=== PATIENT | female | born 1960 | race Caucasian/White ===

== ENCOUNTER → 2017-12-27 07:16 | Outpatient (CLI) | payer OTHER, SELFPAY ==
--- NOTE | 2017-12-27 07:28 | BI_ITS ---
MAMMOGRAPHY - BILATERAL SCREENING REASON FOR EXAM: Female, 57 years old. Routine annual screening examination. PERTINENT HISTORY: Non-contributory. TECHNIQUE: Digital bilateral breast ruby (3D mammographic acquisition) in the CC and MLO projections. 2-D mediolateral oblique (MLO) and craniocaudad (CC) views of both breasts were obtained. CAD: Full Field Digital Mammography with Computer Added Detection was performed. COMPARISON: Comparison is made to prior study dated March 13, 2016 and March 02, 2015. FINDINGS: Breast Composition: There are scattered areas of fibroglandular density. There are no dominant masses or suspicious calcifications. No other significant abnormalities are identified. There has been no significant change since the prior study. BI/SCREENING MAMM (CAD), BILAT IMPRESSION: Stable bilateral screening mammogram. Yearly follow-up mammogram recommended. (A) ASSESSMENT CATEGORY: BIRADS Category 1: Negative. A letter regarding these results will be sent to the patient by the facility within 30 days. Approximately 10% of breast cancers are not detected by mammography. A normal mammogram should not delay biopsy of a clinically suspicious abnormality. [id number] Electronically Signed: Darvin North MD at 8:56 EDT Tel [phone], Service support ,
== END ==
PROVIDERS: Family Provider Family Medicine; PCP Family Medicine; Visit Provider Obstetrics & Gynecology
DX: Z12.31 Encounter for screening mammogram for malignant neoplasm of breast (principal)
CPT/HCPCS: 77063; 77067

== ENCOUNTER 2018-10-12 15:29 | Emergency (ER) | payer OTHER, SELFPAY ==
[2018-10-12 15:30] VITALS: BP 150/79; PULSE 86; RESP 18; TEMP 36.7; O2SAT 99; BMI 27.7
--- NOTE | 2018-10-12 15:42 | RAD_ITS ---
STUDY: X-RAY - LEFT HAND REASON FOR EXAM: Female, 58 years old. Cat bites TECHNIQUE: 3 view(s) of the hand. COMPARISON: None. FINDINGS: Normal radiocarpal articulation. Normal distal radioulnar joint. Normal visualized carpal bones. Normal carpal articulations Normal carpometacarpal articulation of the thumb. Normal second through fifth carpometacarpal joints. Normal metacarpi. Normal metacarpophalangeal joint of the thumb. Normal interphalangeal joint of the thumb. Normal proximal and distal phalanges of the thumb. Normal metacarpophalangeal joints of the second through fifth fingers. Normal proximal and distal interphalangeal joints of the second through fifth fingers. Normal phalanges of the second through fifth fingers. Soft tissue swelling and possible subcutaneous gas second metacarpal phalangeal region. RAD/Hand Min 3 Views IMPRESSION: Soft tissue swelling and possible subcutaneous gas consistent with possible infection. No radiodense foreign body. Electronically Signed: Jerardo Martinez MD at 16:15 EDT , Service support ,
--- NOTE | 2018-10-12 15:44 | ED.VISSUMM ---
- ER Visit Summary Date of Service: 10/12/18 Chief Complaint: Multiple cat bites History of Present Illness: The patient is a 58 F who rescued a stray kitten today. On the way home the cat box when the patient took the cat on the box it was covered in fecal material. She attempted to wash the cat but the cat was not willing. As a result she sustained multiple cat bite wounds to the left forearm and hand. She notes a couple of wounds to her right hand and her left upper arm. Unknown last tetanus. She performed some local wound care Physical Examination: Afebrile vital signs are stable Gen: Well-nourished well-developed Head: Normocephalic atraumatic Eyes: Perrl EOMI ENT: TMs clear no rhinorrhea moist mucous membranes Neck: Supple no lymphadenopathy no JVD nontender CVS: Regular rate rhythm no murmurs normal S1-S2 Respiratory: No distress clear to auscultation bilaterally chest nontender Abdomen: Soft nontender nondistended normal bowel sounds no masses Back: Nontender Extremity: There are multiple puncture wounds to the left hand and forearm. There are several wounds to the volar surface of the left index and middle finger. As well as several wounds to the dorsal surface of same fingers. There is a small wound to the posterior left upper arm as well as the left hand. Skin: Normal color no rash Neuro: alert orientated ?3 CN II-XII intact normal strength sensation reflexes gait cerebellar Psych: Normal affect normal mood Test Results: X-rays of the hand and forearm were obtained. No obvious foreign bodies were seen. Emergency Department Course and Treatment: Tetanus was updated. Wounds were washed cleansed and dressed. She will need to take antibiotics I will prescribe Augmentin. The patient was advised that she is at extremely high risk for infection and other complications because of the right hand and her diabetic status. I advised her she to have a low threshold for return for evaluation. Impression: 1. Multiple cat bites left arm and hand 2. Tetanus update This note was generated with [employer] dictation software. It may contain incorrect words, spelling, and punctuation that were not noted in review of the chart prior to signing ED Disposition - Plan for ED Patient: Disposition: Home or Assisted Living Instructions: ED Bite Cat Prescriptions: Amox/Clavulanate Tablet [Augmentin Tablet] 875 mg PO Q12H #14 tab Additional Instructions: Please follow-up with your primary care physician within 5 days. Please return to the emergency department immediately if you have any concerns or evidence of infection (erythema, red streaks, fever, pus, etc.).
--- NOTE | 2018-10-12 15:45 | RAD_ITS ---
STUDY: X-RAY - LEFT RADIUS AND ULNA REASON FOR EXAM: Female, 58 years old. Multiple cat bite TECHNIQUE: 2 view(s) of the forearm. COMPARISON: None. FINDINGS: There is no demonstrated soft tissue swelling. No subcutaneous gas or radiodense foreign body. Normal visualized radius. Normal visualized ulna. RAD/Forearm 2 Views IMPRESSION: Normal x-ray examination of the radius and ulna. Electronically Signed: Jerardo Martinez MD at 16:14 EDT , Service support ,
[2018-10-12] MEDS: Diphth,Pertuss(Acell),Tet Vac 0.5 ML Vial IM (15:51)
[2018-10-12] MEDS: Amox/Clavulanate 875 MG Tablet PO (15:51)
== END 2018-10-12 16:32 | disposition home or self-care (01) ==
PROVIDERS: Emergency Provider Emergency Medicine
DX: S60.572A Other superficial bite of hand of left hand, initial encounter (principal); S50.872A Other superficial bite of left forearm, initial encounter; W55.01XA Bitten by cat, initial encounter; Y93.9 Activity, unspecified; Y92.9 Unspecified place or not applicable; Z23 Encounter for immunization; E11.9 Type 2 diabetes mellitus without complications
CPT/HCPCS: 73090; 73130; 90715; 99283

== ENCOUNTER → 2019-03-13 08:12 | Outpatient (CLI) | payer OTHER, SELFPAY ==
--- NOTE | 2019-03-13 08:14 | BI_ITS ---
MAMMOGRAPHY - BILATERAL SCREENING REASON FOR EXAM: Female, 58 years old. Routine annual screening examination. PERTINENT HISTORY: Non-contributory. TECHNIQUE: Digital bilateral breast ruby (3D mammographic acquisition) in the CC and MLO projections. 2-D mediolateral oblique (MLO) and craniocaudad (CC) views of both breasts were obtained. CAD: Full Field Digital Mammography with Computer Added Detection was performed. COMPARISON: Comparison is made with prior examination dated December 27, 2017 and March 13, 2016. FINDINGS: Breast Composition: There are scattered areas of fibroglandular density. There are no dominant masses or suspicious calcifications. No other significant abnormalities are identified. There has been no significant change since the prior study. BI/SCREENING MAMM (CAD), BILAT IMPRESSION: Stable bilateral screening mammogram. Yearly follow-up mammogram recommended. (A) ASSESSMENT CATEGORY: BIRADS Category 1: Negative. A letter regarding these results will be sent to the patient by the facility within 30 days. Approximately 10% of breast cancers are not detected by mammography. A normal mammogram should not delay biopsy of a clinically suspicious abnormality. [id number] Electronically Signed: Darvin North, at 9:25 EDT , Service support ,
== END ==
PROVIDERS: Family Provider Family Medicine; PCP Family Medicine; Referring Provider Obstetrics & Gynecology; Visit Provider Obstetrics & Gynecology
DX: Z12.31 Encounter for screening mammogram for malignant neoplasm of breast (principal)
CPT/HCPCS: 77067

== ENCOUNTER 2019-07-23 16:58 | Emergency (ER) | payer OTHER, SELFPAY ==
[2019-07-23 16:59] VITALS: BP 143/78; PULSE 119; RESP 19; TEMP 37.9; O2SAT 94; BMI 27.4
[2019-07-23 18:00] VITALS: BP 146/71; PULSE 104; RESP 17; TEMP 38.4; O2SAT 88
[2019-07-23] MEDS: 0.9% Normal Saline 1,000 ML 1000 ML IV (18:07)
--- NOTE | 2019-07-23 18:10 | ED.DCSUM_ITS ---
- ER Visit Summary Date of Service: 07/23/19 Chief Complaint: Flulike symptoms History of Present Illness: The patient is a 59 F who presents with flulike symptoms that have been constant for the past 2 days. Patient states this is gradually gotten worse. Patient states nothing makes it better or worse. Patient admits to a fever of 103 at home. Patient also admits to some chills and rhinorrhea. Patient admits to cough and shortness of breath. Patient admits to some sputum production but she does not know the color. Patient admits to generalized myalgias and arthralgias. Patient also admits to a headache. Patient denies any nausea or vomiting. Patient denies any dysuria or hematuria. Physical Examination: Vital signs are stable except for tachycardia of 119. Patient has a temperature of 100.3 here. Patient is in no acute distress. Oral mucosa is pink and moist. Neck is supple. Trachea is midline. There is no JVD. Heart was regular rate and rhythm. Lungs are clear and equal bilaterally. Abdomen is soft. Bowel sounds are normal. There is no tenderness. Cranial nerves II through XII are intact. There are no focal motor or sensory deficits noted. Test Results: CBC was within normal limits. Basic metabolic profile showed slightly elevated creatinine of 1.20 and a slightly elevated glucose of 224. Influenza swab was positive for influenza A. Emergency Department Course and Treatment: Patient was given IV fluids. Patient felt better on reevaluation. Patient was given a prescription for Tamiflu. Patient was instructed to drink plenty of fluids. Patient was instructed to follow-up with her primary care physician in 5 to 7 days. Patient understood and was agreeable with the plan. All questions were answered. Disposition: Discharge home Impression: Influenza This note was generated with [employer] dictation software. It may contain incorrect words, spelling, and punctuation that were not noted in review of the chart prior to signing ED Disposition - Plan for ED Patient: Disposition: Home or Assisted Living Diagnosis: Influenza A Instructions: INFLUENZA (Adult) Prescriptions: Oseltamivir Phosphate [Tamiflu] 75 mg PO BID #10 cap Prescription Printed Referrals: Ezequiel Nelson MD [Primary Care Provider] - 5-7 Days
[2019-07-23 18:12] LABS: Absolute Neutrophil Count 5.4 X10^3/uL (2.0-7.7); Basophil# 0.04 X10^3/uL; Basophil% 0.6 % (0-1); Eosinophil# 0.15 X10^3/uL; Eosinophils% 2.3 % (0-5); Hematocrit 37.1 % (37-47); Hemoglobin 12.1 g/dL (12.0-15.0); Lymphocyte % 7.6 % (19-41); Mean Corp Hgb Conc 32.6 g/dL (32-36); Mean Platelet Vol. 11.6 fl (6.2-12.0); Monocyte# 0.44 X10^3/uL; Monocyte% 6.7 % (0-10); NRBC Flagged by Analyzer 0 % (0-5); Neutrophil # 5.42 X10^3/uL (2.7-7.7); Neutrophil % 82.3 % (47-70); POSITIVE DIFFERENTIAL YES; POSITIVE MORPHOLOGY YES; Platelet Count 217 K/mm3 (150-450); RBC Distribution Width CV 12.5 % (11.6-14.6); RBC Distribution Width SD 41.4 fl (35.1-43.9); Red Blood Count 4.17 M/mm3 (4.2-5.4); White Blood Count 6.6 K/mm3 (4.4-11.0)
[2019-07-23 18:15] LABS: Differential Indicated SCAN CRITERIA MET
--- NOTE | 2019-07-23 18:15 | RAD_ITS ---
STUDY: X-RAY CHEST REASON FOR EXAM: Female, 59 years old. flu symptoms TECHNIQUE: PA and lateral views of the chest. COMPARISON: None. FINDINGS: The lungs are clear and expanded. There is no demonstrated pleural abnormality. Normal size heart. Normal mediastinum and juan. Normal visualized pulmonary arteries. Normal visualized aortic arch and descending thoracic aorta. Normal visualized thoracic spine. Normal visualized ribs, clavicles, and shoulders. There is no demonstrated abnormality of the visualized soft tissue structures of the upper abdomen. RAD/Chest PA and Lateral IMPRESSION: Normal x-ray examination of the chest. Electronically Signed: Christiano Burris DO at 18:58 EST Tel , Service support ,
[2019-07-23 18:47] LABS: Differential Comment SCANNED; Platelet Estimate ADEQUATE (ADEQ)
[2019-07-23 18:48] LABS: Red Cell Morphology NORM C+C NORMAL (NORM C&C)
[2019-07-23 18:53] VITALS: BP 131/70; PULSE 99; RESP 21; TEMP 37.5; O2SAT 97
[2019-07-23 19:09] LABS: ALB/GLOB Ratio 0.8 RATIO (0.9-2.4); AST(SGOT) 14 U/L (15-37); Alanine Aminotransfer ALT/SGPT 25 U/L (13-56); Alkaline Phosphatase 92 U/L (45-117); Anion Gap 6 (5-15); BUN 10 mg/dL (7-18); BUN/Creat Ratio 8.3 RATIO (10-20); Calcium,Total 8.2 mg/dL (8.5-10.1); Chloride 106 mmol/L (98-107); EST Glomerular Filtration Rate 49 mL/min (>60); Est Glom Filt Rate - Afr Amer 59 mL/min (>60); Estimated Creatinine Clearance 42.27 ml/min; Globulin 3.6 g/dL (2.2-4.2); Glucose 224 mg/dL (74-106); Protein, Total 6.6 g/dL (6.4-8.2); Sodium Level 138 mmol/L (136-145)
[2019-07-23 20:09] VITALS: BP 128/66; PULSE 98; RESP 17
== END 2019-07-23 20:09 | disposition home or self-care (01) ==
PROVIDERS: Emergency Provider Emergency Medicine; PCP Family Medicine
DX: J10.1 Influenza due to other identified influenza virus with other respiratory manifestations (principal); E11.9 Type 2 diabetes mellitus without complications; R00.0 Tachycardia, unspecified; J45.909 Unspecified asthma, uncomplicated; Z79.899 Other long term (current) drug therapy
CPT/HCPCS: 71046; 80053; 85025; 87804; 87880; 96360; 99284; J7030; A4216

== ENCOUNTER 2019-10-03 19:49 | Inpatient (IN) | payer OTHER, SELFPAY ==
[2019-10-03 19:50] VITALS: BP 155/85; PULSE 96; RESP 17; TEMP 36.4; O2SAT 96; BMI 27.1
--- NOTE | 2019-10-03 20:04 | CT_ITS ---
STUDY: CT ABDOMEN AND PELVIS WITHOUT CONTRAST REASON FOR EXAM: Female, 59 years old. RIGHT FLANK PAIN, BURNING WITH URINATION. NAUSEA. RADIATION DOSAGE (If Supplied By Facility): CTDIvol = ( 17.493 ) mGy, DLP = ( 1338.69 ) mGycm TECHNIQUE: Transaxial images were obtained from the dome of the diaphragm to the symphysis pubis without oral contrast, and without intravenous contrast. Sagittal and coronal images were reconstructed. Individualized dose optimization techniques were used for this CT. COMPARISON: None. FINDINGS: There is mild subsegmental atelectasis in left lower lobe.. The visualized portions of the heart are within normal limits. Small hiatal hernia is noted Liver is enlarged and fatty infiltrated without mass or bile duct dilatation. Normal gallbladder and extrahepatic biliary system. Normal spleen. Normal pancreas. Normal bilateral adrenal glands. Normal right kidney. There is focal hypoattenuation within the lower pole of the left renal cortex in association with stranding in the perinephric fat and trace of fluid in the right posterior pararenal space and paracolic gutter which may be consistent with focal lobar nephronia and possible evolving renal abscess. Normal visualized stomach. Normal small intestine. Normal colon. The appendix is visualized and appears normal. Mild atherosclerotic changes of the aorta without evidence for aneurysm. Normal inferior vena cava. Normal retroperitoneum. Incompletely distended thick-walled prolapsed bladder which cannot be adequately evaluated Normal abdominal wall. Normal osseous structures. CT/Abdomen/Pelvis W IV Cont ONLY IMPRESSION: Findings consistent with focal lobar nephronia of the lower pole of the right kidney and possible evolving abscess. Incompletely distended thick-walled prolapsed bladder which cannot be adequately evaluated. Other findings as above Electronically Signed: Jose Marlow MD at 21:24 EDT , Service support ,
--- NOTE | 2019-10-03 20:05 | ED.VISSUMM ---
- ER Visit Summary Date of Service: 10/03/19 Chief Complaint: Right flank pain History of Present Illness: The patient is a 59 F history of diabetes and asthma. Patient states since Sunday she has had gradual onset of right flank pain. Thought she might of UTI. Has had some dysuria. Pain is gotten worse. She treated with azole and which is started on antibiotic today. Has had nausea. No fever positive chills. Says she had urinary tract infections before is never had right flank pain with comes. Has never had pyelonephritis. Has never had a kidney stone. No gallbladder history. No prior abdominal surgeries. Physical Examination: Middle-aged female clinically looks like she does not feel well vital signs are stable afebrile. She does not look septic or toxic. H EENT exam unremarkable. Neck nontender. Lungs clear to auscultation bilaterally. Heart regular rhythm no murmur rate about 95. Abdomen soft right upper quadrant tenderness. No rebound, guarding or rigidity. No Meneses sign. Right lower quadrant and left side of the abdomen are nontender. No distention. No obstruction. Patient moving all 4 extremities. No edema. Back no CVA tenderness. No back tenderness. Neurologically she is awake alert with no focal motor tenderness. Test Results: CBC white count 1.7. Hemoglobin 11.4 which is around her baseline blood count. Chemistries unremarkable BUN of 15 creatinine 1.4 slightly worsening renal insufficiency than prior 1.2. Gap 7. Liver enzymes unremarkable lipase normal. UA still pending with culture also ordered. Emergency Department Course and Treatment: Patient with right flank pain that may be pyelonephritis. She is never had a history of a stone. She does have right upper quadrant pain gallbladder disease in the differential diagnosis also. She was offered pain and nausea medication she deferred. She will be treated with a liter normal saline. CAT scan with IV contrast and screening labs. Along with urinalysis. CT flank study with IV contrast shows right pyelonephritis with possible even early abscess formation. All the test findings were discussed with the patient. Urine culture has been added. Treatment Plan: IV fluids. IV morphine and Zofran x2 each. Patient be started on IV Rocephin for pyelonephritis. I will speak to the hospitalist about admission. Disposition: Discharge Impression: Acute right flank pain secondary to acute pyelonephritis Rule out early renal abscess History of diabetes This note was generated with [employer] dictation software. It may contain incorrect words, spelling, and punctuation that were not noted in review of the chart prior to signing ED Disposition - Plan for ED Patient: Referrals: Ezequiel Nelson MD [Primary Care Provider] -
[2019-10-03] MEDS: 0.9% Normal Saline 1,000 ML 1000 ML IV (20:15)
[2019-10-03] MEDS: Ondansetron 4 MG/2 ML Vial IV ×2 (20:28→21:25)
[2019-10-03] MEDS: morphine 8 MG/ML Syringe 6 MG IV ×2 (20:28→21:25)
[2019-10-03 20:29] LABS: Absolute Lymphocyte Count 1.29 X10^3/uL (0.83-4.51); Absolute Neutrophil Count 9.9 X10^3/uL (2.0-7.7); Basophil# 0.05 X10^3/uL; Basophil% 0.4 % (0-1); Eosinophil# 0.04 X10^3/uL; Eosinophils% 0.3 % (0-5); Hematocrit 36.1 % (37-47); Hemoglobin 11.4 g/dL (12.0-15.0); Lymphocyte # 1.29 X10^3/ul (4.0); Lymphocyte % 10.9 % (19-41); Mean Corp Hgb Conc 31.6 g/dL (32-36); Mean Corpuscular Hgb 28.4 pg (27.0-32.0); Monocyte# 0.55 X10^3/uL; Monocyte% 4.6 % (0-10); NRBC Flagged by Analyzer 0 % (0-5); Neutrophil # 9.86 X10^3/uL (2.7-7.7); Neutrophil % 83.3 % (47-70); Platelet Count 193 K/mm3 (150-450); RBC Distribution Width CV 12.6 % (11.6-14.6); RBC Distribution Width SD 41.1 fl (35.1-43.9); Red Blood Count 4.01 M/mm3 (4.2-5.4); White Blood Count 11.9 K/mm3 (4.4-11.0)
[2019-10-03 20:45] LABS: ALB/GLOB Ratio 0.7 RATIO (0.9-2.4); AST(SGOT) 12 U/L (15-37); Alanine Aminotransfer ALT/SGPT 24 U/L (13-56); Albumin, Serum 3.2 g/dL (3.2-5.0); Alkaline Phosphatase 121 U/L (45-117); Anion Gap 7 (5-15); BUN 15 mg/dL (7-18); BUN/Creat Ratio 10.7 RATIO (10-20); Calcium,Total 9.3 mg/dL (8.5-10.1); Chloride 101 mmol/L (98-107); EST Glomerular Filtration Rate 41 mL/min (>60); Est Glom Filt Rate - Afr Amer 50 mL/min (>60); Estimated Creatinine Clearance 36.23 ml/min; Globulin 4.5 g/dL (2.2-4.2); Glucose 382 mg/dL (74-106); Lipase 80 U/L (73-393); Potassium 4.2 mmol/L (3.5-5.1); Protein, Total 7.7 g/dL (6.4-8.2); Sodium Level 135 mmol/L (136-145)
[2019-10-03 20:52] LABS: Mucous, Urine 0 SEEN /hpf (<or=2+)
[2019-10-03 21:25] VITALS: BP 155/84; PULSE 98; RESP 19; O2SAT 97
[2019-10-03 21:29] VITALS: BP 155/84; PULSE 98; RESP 19; TEMP 36.8; O2SAT 97
[2019-10-03 21:37] LABS: Glucose, Dipstick 250 mg/dl (Normal); Ketone-Dipstick 5 mg/dl (Negative); Leukocyte Esterase-Dipstick Negative /ul (Negative); Nitrite-Dipstick Positive (Negative); Occult Blood-Urine 25 /ul (Negative); Protein-Dipstick 30 mg/dl (Negative); Specific Gravity, Urine 1.015 (1.002-1.030); Urine Clarity Sl. Cloudy (Clear); Urine Urobilinogen 8 mg/dl (Normal)
[2019-10-03] MEDS: Ceftriaxone 1 GM/50 ML BAG IV (21:39)
[2019-10-03 21:41] LABS: Color, Urine SEE COMMENT BELOW (Yellow); Urine Bilirubin Dipstick 6 mg/dL (Negative)
[2019-10-03 21:47] LABS: Red Blood Cells-Urine 10-25 SEEN /hpf (0-5); Squamous Epithelial Cells - UA 0-5 SEEN /hpf (5-10); White Blood Cells 10-25 SEEN /hpf (0-5)
[2019-10-03 21:48] LABS: Amorphous Sediment 1+ URATE; Bacteria RARE /hpf (None Seen)
[2019-10-03 22:01] VITALS: BP 164/93; PULSE 88; RESP 18; TEMP 36.8; O2SAT 95
[2019-10-03 22:35] VITALS: BP 158/83; PULSE 85; RESP 16; TEMP 36.5; O2SAT 95
--- NOTE | 2019-10-03 22:35 | PCM.HP.STD ---
History of Present Illness Date of Admission: 10/03/19 Chief Complaint: Right flank pain The patient is a 59 year old F H as below presents with right-sided flank pain as well as dysuria. She says that symptoms started about 3 days ago but significantly got worse today. She called her PCP today and was started on antibiotic she believes it was Macrobid, however she said the pain became so severe that she had to come to the hospital. CT scan of her abdomen showed pyelonephritis with possible early onset abscess in the lower pole of her right kidney. UA is positive nitrites with rare bacteria, no leukocyte esterase. She was given a dose of Rocephin here in the ER. She has had some nausea and vomiting with the pain over the last day. White count is 11.9 and her creatinine is slightly elevated from her baseline of 1.2. Past Medical History Allergies meperidine [From Demerol] Adverse Reaction (Verified 10/03/19 19:50) Vomiting Home Medications: Ambulatory Orders Medication Instructions Recorded Fluticasone/Salmeterol [Advair Hfa 1 - 2 puff IH DAILY 07/23/19 230-21 Mcg Inhaler] Simvastatin 20 mg PO QHS 07/23/19 Glipizide [Glipizide ER] 2.5 mg PO DAILY 10/03/19 Insulin Degludec [Tresiba 80 units SQ QHS 10/03/19 Flextouch U-200] Metformin HCl [Metformin HCl ER] 1,000 mg PO DAILY 10/03/19 Surgical History: - - Smoking Status: Never smoker Alcohol: None Drugs: None - *Family History Maternal History Items: Diabetes Paternal History Items: Diabetes Review of Systems Constitutional: Denies: Chills, Fever, Weight Change HEENT: Denies: Head Aches, Sinus Congestion, Sinus Drainage Cardiovascular: Denies: Chest Pain, Palpitations Respiratory: Denies: Cough, Shortness of breath at rest, Sputum production Gastrointestinal: Reports: Nausea, Vomiting. Denies: Abdominal Pain Genitourinary: Reports: Dysuria, - - Right flank pain Musculoskeletal: Denies: Joint Pain, Joint Tenderness Skin: Denies: Rash, Wounds Neurological: Denies: Numbness, Tingling, Focal weakness Psychiatric: Denies: Anxiety, Depression Hematologic/ Lymphatic: Denies: Easy Bruising, Easy Bleeding VTE Information - Inpt Only VTE Present on Admission: No - Physical Exam Vitals/I&O's: Vital Signs Temp Pulse Resp BP Pulse Ox 98.3 F 88 18 164/93 H 95 10/03/19 22:01 10/03/19 22:01 10/03/19 22:01 10/03/19 22:01 10/03/19 22:01 Oxygen Delivery Method Room Air Weight: 153 lb 3.54 oz Body Mass Index (BMI) 27.1 Intake and Output for Last 24 Hours 10/01/19 10/02/19 10/03/19 23:59 23:59 23:59 Intake Total 1000 / 1000 Balance 1000 / 1000 General: Alert, Oriented x3, Cooperative, No apparent distress HEENT: Atraumatic, PERRLA, EOMI, Normocephalic Oral: Moist Mucosa Neck: Supple, No JVD Lungs: Clear to auscultation, Normal air movement, No rhonchi, No wheeze, No rales Cardiovascular: Regular rate, Regular Rhythm, Normal S1, Normal S2, No murmurs, No Ectopic Activity Abdomen: Soft, Non Tender, Non-Distended, No Hepato-splenomegaly, - - Right CVA tenderness Extremities: No edema, Capillary Refill Less than 3 Seconds Skin: No rashes, No breakdown Neurological: Neuro grossly intact, Sensory exam intact to light touch and pain Psych/Mental Status: Normal Affect, Appropriate Laboratory Results 10/03/19 20:07: WBC 11.9 H, RBC 4.01 L, Hgb 11.4 L, Hct 36.1 L, MCV 90.0, MCH 28.4, MCHC 31.6 L, RDW Std Deviation 41.1, RDW Coeff of Pardeep 12.6, Plt Count 193, MPV 11.0, Immature Gran % (Auto) 0.500, Neut % (Auto) 83.3 H, Lymph % (Auto) 10.9 L, [place] % (Auto) 4.6, Eos % (Auto) 0.3, Baso % (Auto) 0.4, Absolute Neuts (auto) 9.9 H, Absolute Lymphs (auto) 1.29, Nucleated RBC % 0 10/03/19 20:07: Sodium 135 L, Potassium 4.2, Chloride 101, Carbon Dioxide 27.0, Anion Gap 7, BUN 15, Creatinine 1.40 H, Estim Creat Clear Calc 36.23, Est GFR (MDRD) Af Amer 50 L, Est GFR (MDRD) Non-Af 41 L, BUN/Creatinine Ratio 10.7, Glucose 382 H, Calcium 9.3, Total Bilirubin 0.50, AST 12 L, ALT 24, Alkaline Phosphatase 121 H, Total Protein 7.7, Albumin 3.2, Globulin 4.5 H, Albumin/Globulin Ratio 0.7 L, Lipase 80 10/03/19 20:45: Urine Color SEE COMMENT BELOW, Urine Clarity Sl. Cloudy, Urine pH 5.0, Ur Specific [place] 1.015, Urine Protein 30 H, Urine Glucose (UA) 250 H, Urine Ketones 5 H, Urine Occult Blood 25 H, Urine Nitrite Positive H, Urine Bilirubin 6 H, Urine Urobilinogen 8 H, Ur Leukocyte Esterase Negative, Urine RBC 10-25 SEEN, Urine WBC 10-25 SEEN, Ur Squamous Epith Cells 0-5 SEEN, Amorphous Sediment 1+ URATE, Urine Bacteria RARE, Urine Mucus 0 SEEN Current Medications Acetaminophen (Tylenol) 650 mg PO Q6H PRN PRN PRN Reason: Pain Score 1-10/Temp > 100.7 F Dextrose (D50w Syringe) 0 gm IV X1 PRN; Protocol PRN Reason: Hypoglycemia Glucagon () 1 mg IM .X1 PRN PRN Reason: Hypoglycemia Heparin Sodium (Porcine) (Heparin Na) 5,000 unit SC Q8 [facility] Sodium Chloride () 1,000 mls @ 75 mls/hr IV .[id number] [facility] Cefazolin Sodium 2 gm/ Sodium (Chloride) 110 mls @ 150 mls/hr IV Q8 [facility] Insulin Glargine (Lantus (Bkc)) 80 units SC QHS [facility] Insulin Human Lispro (Humalog Kwikpen (Bkc)) 0 unit SC ACHS [facility]; Protocol Insulin Human Lispro (Humalog Kwikpen (Bkc)) 5 unit SC TIDAC [facility] Melatonin (Melatonin) 3 mg PO QHS PRN PRN PRN Reason: INSOMNIA Ondansetron HCl (Zofran) 4 mg IV Q8H PRN PRN PRN Reason: NAUSEA/VOMITING Assessment/Plan 1. Right pyelonephritis with possible early abscess -Continue with Ancef -Urine culture is pending -Continue with IV Zofran and Toradol for pain management 2. DM 2 -We will continue with Lantus as well as sliding scale insulin -Hold glipizide and metformin 3. Hyperlipidemia -Continue with her simvastatin DVT: Heparin Inpatient E&M: 19132 Init Hosp L2
[2019-10-03] MEDS: 0.9% Normal Saline 1,000 ML 75 ML IV (22:45)
[2019-10-03] MEDS: Ketorolac 30 MG/ML Syringe IV (22:45)
[2019-10-03 22:54] VITALS: BMI 27.3
[2019-10-03 22:56] LABS: Bedside Glucose 260 mg/dL (70-110)
[2019-10-03] MEDS: 0.9% Saline Lock 10 ML Syringe IV (23:10)
[2019-10-03 23:12] VITALS: BMI 27.3
[2019-10-03] MEDS: Cefazolin 2 GM in 0.9% Normal Saline 100 ML IV (23:17)
[2019-10-03] MEDS: proMETHazine 25 MG/ML Syringe 12.5 MG IV (23:28)
[2019-10-03] MEDS: Heparin Injection (Vial) 5,000 UNIT/ML VIAL 5000 UNIT SC (23:30)
[2019-10-03] MEDS: Insulin Lispro 100 UNIT/ML INSULN.PEN SC (23:34)
[2019-10-04 02:37] VITALS: BP 154/87; PULSE 78; RESP 17; TEMP 37; O2SAT 95
[2019-10-04] MEDS: Cefazolin 2 GM in 0.9% Normal Saline 100 ML IV ×3 (06:08→21:24)
[2019-10-04] MEDS: Heparin Injection (Vial) 5,000 UNIT/ML VIAL 5000 UNIT SC (06:13)
[2019-10-04] MEDS: Insulin Lispro 100 UNIT/ML INSULN.PEN SC ×4 (06:17→21:23)
[2019-10-04 07:06] LABS: Absolute Lymphocyte Count 1.32 X10^3/uL (0.83-4.51); Absolute Neutrophil Count 10.7 X10^3/uL (2.0-7.7); Basophil# 0.02 X10^3/uL; Basophil% 0.2 % (0-1); Eosinophil# 0.02 X10^3/uL; Eosinophils% 0.2 % (0-5); Hematocrit 35.8 % (37-47); Hemoglobin 11.2 g/dL (12.0-15.0); Lymphocyte # 1.32 X10^3/ul (4.0); Lymphocyte % 10.6 % (19-41); Mean Corp Hgb Conc 31.3 g/dL (32-36); Mean Corpuscular Hgb 28.6 pg (27.0-32.0); Mean Corpuscular Volume 91.6 fL (81-99); Monocyte# 0.33 X10^3/uL; Monocyte% 2.6 % (0-10); NRBC Flagged by Analyzer 0 % (0-5); Neutrophil # 10.73 X10^3/uL (2.7-7.7); Neutrophil % 85.8 % (47-70); Platelet Count 184 K/mm3 (150-450); RBC Distribution Width CV 12.9 % (11.6-14.6); RBC Distribution Width SD 42.5 fl (35.1-43.9); Red Blood Count 3.91 M/mm3 (4.2-5.4); White Blood Count 12.5 K/mm3 (4.4-11.0)
[2019-10-04 07:11] LABS: Bedside Glucose 169 mg/dL (70-110)
[2019-10-04 07:35] LABS: Anion Gap 7 (5-15); BUN 13 mg/dL (7-18); BUN/Creat Ratio 10.6 RATIO (10-20); Calcium,Total 8.5 mg/dL (8.5-10.1); Chloride 105 mmol/L (98-107); Creatinine, Serum 1.23 mg/dL (0.55-1.02); EST Glomerular Filtration Rate 48 mL/min (>60); Est Glom Filt Rate - Afr Amer 58 mL/min (>60); Estimated Creatinine Clearance 41.24 ml/min; Glucose 150 mg/dL (74-106); Potassium 3.8 mmol/L (3.5-5.1); Sodium Level 138 mmol/L (136-145)
[2019-10-04 08:26] VITALS: BP 145/68; PULSE 103; RESP 16; TEMP 37.5; O2SAT 98
[2019-10-04] MEDS: 0.9% Normal Saline 1,000 ML 75 ML IV (08:33)
--- NOTE | 2019-10-04 09:50 | CASEMGMT ---
RN SALVATORE Face to Face with patient for initial transition planning/care coordination assessment. RN CM introduced self and role at [facility]. Patient lying in bed, alert and oriented. Patient willing to participate in assessment and is able to answer all questions appropriately. Care providers, pharmacy, and demographics verified. Patient wishes to discharge home, denies need for home health at this time. Patient states she has no further needs or concerns at this time. CM to follow for discharge planning needs that may arise. PCP: Omar Specialists: Wilma Dupree, Endocrinology Preferred Pharmacy: [facility] Insurance: [employer] Prescription Benefit: yes Living Will/HPOA: none LNOK: Living Arrangements: Patient lives with in 2 story home with bed and bath on 1st floor. Patient states she is independent at home. Transportation: self/ DME/HHC: Patient has glucometer at home. Patient denies previous HHC. Disposition Plan: Patient to discharge home with family support and follow-up plans in place. Marce CUADRA, RN, CM
[2019-10-04] MEDS: Ketorolac 30 MG/ML Syringe IV ×3 (10:11→22:50)
[2019-10-04] MEDS: 0.9% Saline Lock 10 ML Syringe IV ×2 (10:11→16:41)
[2019-10-04 11:20] LABS: Bedside Glucose 133 mg/dL (70-110)
[2019-10-04 13:56] VITALS: BP 122/86; PULSE 98; RESP 16; TEMP 37.1; O2SAT 96
--- NOTE | 2019-10-04 14:09 | PCM.PROGNOTE ---
Subjective: Patient was seen and examined today she is complaining of some right flank pain this morning, high temp today was 99.5. Patient's white blood cell count today was 12.5. Creatinine 1.23. Patient states that she is thirsty, she does not complain of any chills or diaphoresis. - Physical Exam Vitals/I&O's: Vital Signs Temp Pulse Resp BP Pulse Ox 98.7 F 98 16 122/86 H 96 10/04/19 13:56 10/04/19 13:56 10/04/19 13:56 10/04/19 13:56 10/04/19 13:56 Oxygen Delivery Method Room Air Weight: 70 kg Body Mass Index (BMI) 27.3 Intake and Output for Last 24 Hours 10/02/19 10/03/19 10/04/19 23:59 23:59 23:59 Intake Total 1090 / 1090 2581.83 / 2581.83 Output Total 450 / 450 Balance 1090 / 1090 2131.83 / 2131.83 General: Alert, Oriented x3, Cooperative, Well developed, Well nourished HEENT: Atraumatic, PERRLA, EOMI, Normocephalic Oral: Moist Mucosa Neck: Supple, No JVD, Trachea Midline, Thyroid Normal Size and Texture Lungs: Clear to auscultation, Normal air movement, No rhonchi, No wheeze, No rales Cardiovascular: Regular rate, Regular Rhythm, Normal S1, Normal S2, No murmurs, No Ectopic Activity, PMI Normal, No rub noted Abdomen: Bowel Sounds Present, Soft, Non Tender, Non-Distended, No hernias noted Extremities: No clubbing, No cyanosis, No edema, Capillary Refill Less than 3 Seconds Skin: No rashes, No breakdown Musculoskeletal: No Tenderness to Palpation of Joints or Extremities Neurological: Cranial nerves II-XII grossly intact, Neuro grossly intact, Sensory exam intact to light touch and pain, Coordination normal Psych/Mental Status: Normal Affect, Appropriate, Alert and oriented to time, place, person, mood and affect Microbiology Past 72 Hours 10/03/19 20:45 Urine, Clean Catch Urine Culture - Preliminary Culture exhibits no growth. Laboratory Results 10/03/19 20:07: WBC 11.9 H, RBC 4.01 L, Hgb 11.4 L, Hct 36.1 L, MCV 90.0, MCH 28.4, MCHC 31.6 L, RDW Std Deviation 41.1, RDW Coeff of Pradeep 12.6, Plt Count 193, MPV 11.0, Immature Gran % (Auto) 0.500, Neut % (Auto) 83.3 H, Lymph % (Auto) 10.9 L, [place] % (Auto) 4.6, Eos % (Auto) 0.3, Baso % (Auto) 0.4, Absolute Neuts (auto) 9.9 H, Absolute Lymphs (auto) 1.29, Nucleated RBC % 0 10/03/19 20:07: Sodium 135 L, Potassium 4.2, Chloride 101, Carbon Dioxide 27.0, Anion Gap 7, BUN 15, Creatinine 1.40 H, Estim Creat Clear Calc 36.23, Est GFR (MDRD) Af Amer 50 L, Est GFR (MDRD) Non-Af 41 L, BUN/Creatinine Ratio 10.7, Glucose 382 H, Calcium 9.3, Total Bilirubin 0.50, AST 12 L, ALT 24, Alkaline Phosphatase 121 H, Total Protein 7.7, Albumin 3.2, Globulin 4.5 H, Albumin/Globulin Ratio 0.7 L, Lipase 80 10/03/19 20:45: Urine Color SEE COMMENT BELOW, Urine Clarity Sl. Cloudy, Urine pH 5.0, Ur Specific [place] 1.015, Urine Protein 30 H, Urine Glucose (UA) 250 H, Urine Ketones 5 H, Urine Occult Blood 25 H, Urine Nitrite Positive H, Urine Bilirubin 6 H, Urine Urobilinogen 8 H, Ur Leukocyte Esterase Negative, Urine RBC 10-25 SEEN, Urine WBC 10-25 SEEN, Ur Squamous Epith Cells 0-5 SEEN, Amorphous Sediment 1+ URATE, Urine Bacteria RARE, Urine Mucus 0 SEEN 10/03/19 22:42: POC Glucose 260 H 10/04/19 06:16: POC Glucose 169 H 10/04/19 06:45: WBC 12.5 H, RBC 3.91 L, Hgb 11.2 L, Hct 35.8 L, MCV 91.6, MCH 28.6, MCHC 31.3 L, RDW Std Deviation 42.5, RDW Coeff of Pradeep 12.9, Plt Count 184, MPV 11.0, Immature Gran % (Auto) 0.600, Neut % (Auto) 85.8 H, Lymph % (Auto) 10.6 L, [place] % (Auto) 2.6, Eos % (Auto) 0.2, Baso % (Auto) 0.2, Absolute Neuts (auto) 10.7 H, Absolute Lymphs (auto) 1.32, Nucleated RBC % 0 10/04/19 06:45: Sodium 138, Potassium 3.8, Chloride 105, Carbon Dioxide 26.0, Anion Gap 7, BUN 13, Creatinine 1.23 H, Estim Creat Clear Calc 41.24, Est GFR (MDRD) Af Amer 58 L, Est GFR (MDRD) Non-Af 48 L, BUN/Creatinine Ratio 10.6, Glucose 150 H, Calcium 8.5 10/04/19 11:11: POC Glucose 133 H Current Medications Acetaminophen (Tylenol) 650 mg PO Q6H PRN PRN PRN Reason: Pain Score 1-10/Temp > 100.7 F Dextrose (D50w Syringe) 0 gm IV X1 PRN; Protocol PRN Reason: Hypoglycemia Glucagon () 1 mg IM .X1 PRN PRN Reason: Hypoglycemia Sodium Chloride () 1,000 mls @ 125 mls/hr IV .Q8H [facility] Last Infusion: 10/04/19 14:00 Dose: 0 mls/hr Documented by: Cefazolin Sodium 2 gm/ Sodium (Chloride) 110 mls @ 150 mls/hr IV Q8 [facility] Last Admin: 10/04/19 13:59 Dose: 150 mls/hr Documented by: Insulin Glargine (Lantus (Bkc)) 80 units SC QHS [facility] Last Admin: 10/03/19 23:33 Dose: 80 u Documented by: Insulin Human Lispro (Humalog Kwikpen (Bk)) 0 unit SC ACHS [facility]; Protocol Last Admin: 10/04/19 11:12 Dose: Not Given Documented by: Insulin Human Lispro (Humalog Kwikpen (Bk)) 5 unit SC TIDAC [facility] Last Admin: 10/04/19 11:36 Dose: 5 u Documented by: Ketorolac Tromethamine (Toradol ([facility])) 30 mg IV Q6H PRN PRN PRN Reason: Pain Score 1-10/10 Stop: 10/08/19 22:42 Last Admin: 10/04/19 10:11 Dose: 30 mg Documented by: Melatonin (Melatonin) 3 mg PO QHS PRN PRN PRN Reason: INSOMNIA Ondansetron HCl (Zofran) 4 mg IV Q8H PRN PRN PRN Reason: NAUSEA/VOMITING Sodium Chloride () 10 - 40 ml IV UD PRN PRN Reason: SALINE FLUSH Last Admin: 10/04/19 10:11 Dose: 20 ml Documented by: Medical Necessity - Tobacco Use Smoking Status: Never smoker Assessment/Plan #1 acute pyelonephritis-continue Rocephin, repeat CBC tomorrow #2 type 2 diabetes-continue to monitor blood sugars #3 stage III chronic kidney disease secondary to type 2 diabetes #4 chronic asthma #5 hyperlipidemia Inpatient E&M: 57373 Subs Hosp L2
[2019-10-04] MEDS: 0.9% Normal Saline 1,000 ML 125 ML IV (16:41)
[2019-10-04 16:51] LABS: Bedside Glucose 87 mg/dL (70-110)
[2019-10-04] MEDS: Acetaminophen 325 MG Tablet 650 MG PO (20:13)
[2019-10-04 20:17] VITALS: BP 134/68; PULSE 107; RESP 18; TEMP 38.2; O2SAT 95
[2019-10-04 21:21] VITALS: TEMP 37.7
[2019-10-04 21:36] LABS: Bedside Glucose 202 mg/dL (70-110)
[2019-10-05] MEDS: 0.9% Normal Saline 1,000 ML 125 ML IV (01:43)
[2019-10-05 03:51] LABS: Bedside Glucose 48 mg/dL (70-110)
[2019-10-05 04:15] LABS: Bedside Glucose 82 mg/dL (70-110)
[2019-10-05] MEDS: Cefazolin 2 GM in 0.9% Normal Saline 100 ML IV (05:24)
[2019-10-05] MEDS: Ketorolac 30 MG/ML Syringe IV (06:39)
[2019-10-05 06:49] LABS: Absolute Lymphocyte Count 0.89 X10^3/uL (0.83-4.51); Absolute Neutrophil Count 7.7 X10^3/uL (2.0-7.7); Basophil# 0.03 X10^3/uL; Basophil% 0.3 % (0-1); Eosinophil# 0.05 X10^3/uL; Eosinophils% 0.6 % (0-5); Hematocrit 34.2 % (37-47); Hemoglobin 10.8 g/dL (12.0-15.0); Lymphocyte # 0.89 X10^3/ul (4.0); Lymphocyte % 9.8 % (19-41); Mean Corp Hgb Conc 31.6 g/dL (32-36); Mean Corpuscular Hgb 28.7 pg (27.0-32.0); Monocyte# 0.35 X10^3/uL; Monocyte% 3.9 % (0-10); NRBC Flagged by Analyzer 0 % (0-5); Neutrophil # 7.73 X10^3/uL (2.7-7.7); Platelet Count 196 K/mm3 (150-450); RBC Distribution Width CV 13.1 % (11.6-14.6); RBC Distribution Width SD 43.6 fl (35.1-43.9); Red Blood Count 3.76 M/mm3 (4.2-5.4); White Blood Count 9.1 K/mm3 (4.4-11.0)
[2019-10-05 06:51] LABS: Bedside Glucose 90 mg/dL (70-110)
[2019-10-05 07:09] LABS: Anion Gap 6 (5-15); BUN 10 mg/dL (7-18); BUN/Creat Ratio 8.5 RATIO (10-20); Calcium,Total 8.3 mg/dL (8.5-10.1); Chloride 111 mmol/L (98-107); Creatinine, Serum 1.18 mg/dL (0.55-1.02); EST Glomerular Filtration Rate 50 mL/min (>60); Est Glom Filt Rate - Afr Amer 60 mL/min (>60); Estimated Creatinine Clearance 42.99 ml/min; Glucose 92 mg/dL (74-106); Potassium 3.5 mmol/L (3.5-5.1); Sodium Level 141 mmol/L (136-145)
[2019-10-05 08:11] VITALS: BP 135/62; PULSE 104; RESP 16; TEMP 37.1; O2SAT 98
--- NOTE | 2019-10-05 10:39 | DCINST_ITS ---
You will use the following diet at home:: No restrictions Your food should be the consistency of: Regular Your liquids should be the consistency of: Regular/Thin Discharge Activity: Return to Normal Activity Weight Bearing Status: Full weight bearing Allergies/Adverse Reactions: Allergies meperidine [From Demerol] Adverse Reaction (Verified 10/03/19 19:50) Vomiting Medications to take at Discharge Fluticasone/Salmeterol [Advair Hfa 230-21 Mcg Inhaler] 1 - 2 puff IH DAILY 07/23/19 Simvastatin 20 mg PO QHS 07/23/19 Glipizide [Glipizide ER] 2.5 mg PO DAILY 10/03/19 Insulin Degludec [Tresiba Flextouch U-200] 80 units SQ QHS 10/03/19 Metformin HCl [Metformin HCl ER] 1,000 mg PO DAILY 10/03/19 Ciprofloxacin [Cipro] 500 mg PO BID #14 tab 10/05/19 The following prescriptions were given: Ciprofloxacin [Cipro] 500 mg PO BID #14 tab Transmission Status: Pending to [facility] #30 Primary Care Physician: Ezequiel Nelson MD [Primary Care Provider] - Please follow up with your Primary Care Physician in: in 10 days Test Results: Test results from this visit will be discussed in further detail at your follow- up appointment, if applicable.
--- NOTE | 2019-10-05 10:51 | PCM.DC.SUM ---
Discharge Date and Diagnosis Date of Admission: 10/03/19 Date of Discharge: 10/05/19 - Primary Discharge Diagnosis #1 pyelonephritis-suspected to be secondary to gram-negative bacteria #2 type 2 diabetes #3 stage III chronic kidney disease secondary to type 2 diabetes #4 hyperlipidemia #5 chronic asthma Hospital Course and Treatment Operations: None Procedures: None Summary of Care Provided: The patient is a 59 year old F was seen in the emergency room at [facility] with chief complaint of right flank pain, work-up in the emergency room revealed her white blood cell count to be elevated, BUN was 15, creatinine was 1.4, urinalysis showed 10-25 WBCs, 10-25 RBCs, and rare bacteria, nitrite was positive. CT of the abdomen pelvis revealed findings consistent with a focal lobar nephronia. Patient was admitted to PCU for acute pyelonephritis, she was given IV Rocephin and IV fluids, pain was controlled with Toradol. Patient improved during her hospital stay, urine culture did not grow out any organisms however. On 10/05/2019, patient was seen and examined: On examination she appeared in good health and spirits, she does not appear to be in any distress. Vital signs as documented. Skin warm and dry and without overt rashes. Neck without JVD, thyroid appears normal, trachea is midline, neck is supple. Lungs clear, normal air movement was noted. Heart exam notable for regular rhythm, normal sounds and absence of murmurs, rubs or gallops. Abdomen unremarkable and without evidence of organomegaly, masses, or abdominal aortic enlargement, bowel sounds are present in all 4 quadrants, no abdominal tenderness was noted. Extremities nonedematous, no cyanosis was noted, no clubbing was noted. Neuro: Cranial nerves II through XII are grossly intact, no focal motor deficits were noted, sensation to light touch and pinprick is intact, motor exam 5/5 throughout. Psych: Patient is alert and oriented x3, she does not appear anxious or depressed, she does not appear agitated. Patient was felt to be in stable condition for discharge home on 10/05/2019. - Physical Exam Vitals/I&O's: Vital Signs Temp Pulse Resp BP Pulse Ox 98.8 F 104 H 16 135/62 H 98 10/05/19 08:11 10/05/19 08:11 10/05/19 08:11 10/05/19 08:11 10/05/19 08:11 Oxygen Delivery Method Room Air Weight: 70 kg Body Mass Index (BMI) 27.3 Intake and Output for Last 24 Hours 10/03/19 10/04/19 10/05/19 23:59 23:59 23:59 Intake Total 1090 / 1090 4437.24 / 4437.24 1230.84 / 1230.84 Output Total 950 / 950 900 / 900 Balance 1090 / 1090 3487.24 / 3487.24 330.84 / 330.84 Microbiology Past 72 Hours 10/03/19 20:45 Urine, Clean Catch Urine Culture - Preliminary Culture exhibits no growth. Laboratory Results 10/04/19 11:11: POC Glucose 133 H 10/04/19 16:32: POC Glucose 87 10/04/19 21:20: POC Glucose 202 H 10/05/19 03:44: POC Glucose 48 L 10/05/19 04:11: POC Glucose 82 10/05/19 06:35: WBC 9.1, RBC 3.76 L, Hgb 10.8 L, Hct 34.2 L, MCV 91.0, MCH 28.7, MCHC 31.6 L, RDW Std Deviation 43.6, RDW Coeff of Pradeep 13.1, Plt Count 196, MPV 11.0, Immature Gran % (Auto) 0.400, Neut % (Auto) 85.0 H, Lymph % (Auto) 9.8 L, [place] % (Auto) 3.9, Eos % (Auto) 0.6, Baso % (Auto) 0.3, Absolute Neuts (auto) 7.7, Absolute Lymphs (auto) 0.89, Nucleated RBC % 0 10/05/19 06:35: Sodium 141, Potassium 3.5, Chloride 111 H, Carbon Dioxide 24.0, Anion Gap 6, BUN 10, Creatinine 1.18 H, Estim Creat Clear Calc 42.99, Est GFR (MDRD) Af Amer 60, Est GFR (MDRD) Non-Af 50 L, BUN/Creatinine Ratio 8.5 L, Glucose 92, Calcium 8.3 L 10/05/19 06:35: POC Glucose 90 Current Medications Acetaminophen (Tylenol) 650 mg PO Q6H PRN PRN PRN Reason: Pain Score 1-10/Temp > 100.7 F Last Admin: 10/04/19 20:13 Dose: 650 mg Documented by: Dextrose (D50w Syringe) 0 gm IV X1 PRN; Protocol PRN Reason: Hypoglycemia Glucagon () 1 mg IM .X1 PRN PRN Reason: Hypoglycemia Sodium Chloride () 1,000 mls @ 125 mls/hr IV .Q8H [facility] Last Infusion: 10/05/19 06:08 Dose: 125 mls/hr Documented by: Cefazolin Sodium 2 gm/ Sodium (Chloride) 110 mls @ 150 mls/hr IV Q8 [facility] Last Infusion: 10/05/19 06:08 Dose: Infused Documented by: Insulin Glargine (Lantus ([facility])) 80 units SC QHS [facility] Last Admin: 10/04/19 21:24 Dose: 80 u Documented by: Insulin Human Lispro (Humalog Kwikpen ([facility])) 0 unit SC ACHS [facility]; Protocol Last Admin: 10/05/19 08:05 Dose: Not Given Documented by: Insulin Human Lispro (Humalog Kwikpen ([facility])) 5 unit SC TIDAC [facility] Last Admin: 10/05/19 08:05 Dose: Not Given Documented by: Ketorolac Tromethamine (Toradol ([facility])) 30 mg IV Q6H PRN PRN PRN Reason: Pain Score 1-10/10 Stop: 10/08/19 22:42 Last Admin: 10/05/19 06:39 Dose: 30 mg Documented by: Melatonin (Melatonin) 3 mg PO QHS PRN PRN PRN Reason: INSOMNIA Ondansetron HCl (Zofran) 4 mg IV Q8H PRN PRN PRN Reason: NAUSEA/VOMITING Sodium Chloride () 10 - 40 ml IV UD PRN PRN Reason: SALINE FLUSH Last Admin: 10/04/19 16:41 Dose: 20 ml Documented by: Discharge Activity: Return to Normal Activity Weight Bearing Status: Full weight bearing Home Medications: Medications to take at Discharge Fluticasone/Salmeterol [Advair Hfa 230-21 Mcg Inhaler] 1 - 2 puff IH DAILY 07/23/19 Simvastatin 20 mg PO QHS 07/23/19 Glipizide [Glipizide ER] 2.5 mg PO DAILY 10/03/19 Insulin Degludec [Tresiba Flextouch U-200] 80 units SQ QHS 10/03/19 Metformin HCl [Metformin HCl ER] 1,000 mg PO DAILY 10/03/19 Ciprofloxacin [Cipro] 500 mg PO BID #14 tab 10/05/19 Following Prescrptions Were Given to Patient: Ciprofloxacin [Cipro] 500 mg PO BID #14 tab Transmission Status: Received by [facility]30 Primary Care Physician: Ezequiel Nelson MD [Primary Care Provider] - Please follow up with your Primary Care Physician in: in 10 days Disposition: Home Minutes spent on discharge:: 31 Patient Condition:: Stable Medical Necessity - Tobacco Use Smoking Status: Never smoker Meaningful Use Info Meaningful Use Diagnoses (Choose all that apply): None applicable Inpatient E&M: [id number] [facility] Hosp
--- NOTE | 2019-10-05 11:15 | NURSING ---
pt did not want bgt taken prior to leaving. states she will take it when she is home.
== END 2019-10-05 11:34 | disposition home or self-care (01) | DRG 690 ==
LOC: ED 20:36 → PCU 22:22
PROVIDERS: Admitting Provider Family Medicine; Emergency Provider Emergency Medicine; PCP Family Medicine; Visit Provider Internal Medicine
DX: N10 Acute pyelonephritis (principal); E11.22 Type 2 diabetes mellitus with diabetic chronic kidney disease; N18.3 Chronic kidney disease, stage 3 (moderate); E78.5 Hyperlipidemia, unspecified; J45.909 Unspecified asthma, uncomplicated; Z79.4 Long term (current) use of insulin; Z79.899 Other long term (current) drug therapy
CPT/HCPCS: 74177; 80048; 80053; 81001; 82962; 83690; 85025; 87086; 87088; 96361; 96374; 96375; 96376; 99284; J7030; Q9967; A4216; J2405

== ENCOUNTER → 2020-05-01 07:18 | Outpatient (CLI) | payer OTHER, SELFPAY ==
--- NOTE | 2020-05-01 07:27 | BI_ITS ---
MAMMOGRAPHY - BILATERAL SCREENING REASON FOR EXAM: Female, 59 years old. Routine annual screening examination. PERTINENT HISTORY: Non-contributory. TECHNIQUE: Digital bilateral breast nola (3D mammographic acquisition) in the CC and MLO projections. 2-D mediolateral oblique (MLO) and craniocaudad (CC) views of both breasts were obtained. CAD: Full Field Digital Mammography with Computer Added Detection was performed. COMPARISON: Comparison is made with prior study dated 03/13/2019 and 12/27/2017. FINDINGS: Breast Composition: There are scattered areas of fibroglandular density. There are no dominant masses or suspicious calcifications. No other significant abnormalities are identified. There has been no significant change since the prior study. BI/SCREEN MAMM (CAD) W/NOLA BILAT IMPRESSION: Stable bilateral screening mammogram. Yearly follow-up mammogram recommended. (A) ASSESSMENT CATEGORY: BIRADS Category 1: Negative. A letter regarding these results will be sent to the patient by the facility within 30 days. Approximately 10% of breast cancers are not detected by mammography. A normal mammogram should not delay biopsy of a clinically suspicious abnormality. [id number] Electronically Signed: Darvin North, at 8:29 EST , Service support ,
== END ==
PROVIDERS: PCP Family Medicine; Referring Provider Family Medicine; Visit Provider Family Medicine
DX: Z12.31 Encounter for screening mammogram for malignant neoplasm of breast (principal)
CPT/HCPCS: 77063; 77067

== ENCOUNTER 2021-08-23 11:28 | Outpatient (CLI) | payer BC, SELFPAY ==
[2021-08-28 17:07] LABS: HPV APTIMA, High Risk Negative (Negative)
== END 2021-08-23 23:59 | disposition home or self-care (01) ==
LOC: LABSPEC 11:30
PROVIDERS: PCP Family Medicine; Visit Provider Student in an Organized Health Care Education/Training Program
DX: Z12.4 Encounter for screening for malignant neoplasm of cervix (principal)
CPT/HCPCS: 87624; 88175; G0145

== ENCOUNTER → 2022-03-06 | Outpatient (CLI) | payer OTHER, SELFPAY ==
[2022-03-06 09:34] LABS: Absolute Lymphocyte Count 2.73 X10^3/uL (0.83-4.51); Absolute Neutrophil Count 4.3 X10^3/uL (2.0-7.7); Basophil# 0.04 X10^3/uL; Basophil% 0.5 % (0-1); Eosinophil# 0.41 X10^3/uL; Eosinophils% 5.2 % (0-5); Hemoglobin 11.3 g/dL (12.0-15.0); Lymphocyte # 2.73 X10^3/ul (0.83-4.51); Lymphocyte % 34.6 % (19-41); Mean Corp Hgb Conc 31.4 g/dL (32-36); Mean Corpuscular Hgb 29.2 pg (27.0-32.0); Mean Platelet Vol. 11.6 fl (6.2-12.0); Monocyte# 0.34 X10^3/uL; Monocyte% 4.3 % (0-10); NRBC Flagged by Analyzer 0 % (0-5); Neutrophil # 4.34 X10^3/uL (2.7-7.7); Neutrophil % 55.1 % (47-70); Platelet Count 255 K/mm3 (150-450); RBC Distribution Width CV 12.6 % (11.6-14.6); RBC Distribution Width SD 42.6 fl (35.1-43.9); Red Blood Count 3.87 M/mm3 (4.2-5.4); White Blood Count 7.9 K/mm3 (4.4-11.0)
[2022-03-06 09:59] LABS: Vitamin B12 278 pg/mL (211-911); Vitamin D,25 Hydroxy 25.2 ng/mL
[2022-03-06 10:13] LABS: ALB/GLOB Ratio 0.9 RATIO (0.9-2.4); AST(SGOT) 13 U/L (15-37); Alanine Aminotransfer ALT/SGPT 24 U/L (13-56); Albumin, Serum 3.3 g/dL (3.2-5.0); Alkaline Phosphatase 95 U/L (45-117); Anion Gap 8 (5-15); BUN 16 mg/dL (7-18); BUN/Creat Ratio 11.5 RATIO (10-20); Chloride 106 mmol/L (98-107); Cholesterol 142 mg/dL (200); Creatinine, Serum 1.39 mg/dL (0.55-1.02); EST Glomerular Filtration Rate 41 mL/min (>60); Est Glom Filt Rate - Afr Amer 50 mL/min (>60); Globulin 3.6 g/dL (2.2-4.2); Glucose 136 mg/dL (74-106); High Density Lipoprotein 39 mg/dL; Potassium 4.3 mmol/L (3.5-5.1); Protein, Total 6.9 g/dL (6.4-8.2); Sodium Level 141 mmol/L (136-145); Thyroid Stim Hormone (TSH) 3.01 uIU/mL (0.358-3.74); Triglycerides 206 mg/dL; Very Low Density Lipoprotein 41 mg/dL (5-40)
[2022-03-08 08:34] LABS: C-Peptide 1.3 ng/mL (1.1-4.4)
== END | disposition home or self-care (01) ==
PROVIDERS: PCP Family Medicine; Referring Provider Family Medicine; Visit Provider Family Medicine
DX: K21.9 Gastro-esophageal reflux disease without esophagitis (principal); E11.9 Type 2 diabetes mellitus without complications; M85.80 Other specified disorders of bone density and structure, unspecified site
CPT/HCPCS: 36415; 80053; 80061; 82306; 82330; 82607; 84443; 84681; 85025

== ENCOUNTER 2022-03-14 09:57 | Outpatient (RCR) | payer OTHER, SELFPAY | END 2022-03-17 23:59 | LOC: DC 09:57 | PROVIDERS: PCP Family Medicine; Referring Provider Family Medicine; Visit Provider Family Medicine | DX: E11.9 Type 2 diabetes mellitus without complications (principal) | CPT/HCPCS: 97802 ==

== ENCOUNTER → 2022-06-07 | Outpatient (CLI) | payer OTHER, SELFPAY ==
--- NOTE | 2022-06-07 09:55 | BI_ITS ---
MAMMOGRAPHY - BILATERAL SCREENING REASON FOR EXAM: Female, 62 years old. Routine annual screening examination. PERTINENT HISTORY: Non-contributory. TECHNIQUE: Digital bilateral breast nola (3D mammographic acquisition) in the CC and MLO projections. 2-D mediolateral oblique (MLO) and craniocaudad (CC) views of both breasts were obtained. CAD: Full Field Digital Mammography with Computer Added Detection was performed. COMPARISON: Comparison made with prior study 05/01/2020 and prior outside examination 05/26/2021. FINDINGS: Breast Composition: There are scattered areas of fibroglandular density. There are no dominant masses or suspicious calcifications. No other significant abnormalities are identified. There has been no significant change since the prior study. BI/SCRN MAMM (CAD)W/NOLA BILAT IMPRESSION: Stable bilateral screening mammogram. Yearly follow-up mammogram recommended. (A) ASSESSMENT CATEGORY: BIRADS Category 1: Negative. A letter regarding these results will be sent to the patient by the facility within 30 days. Approximately 10% of breast cancers are not detected by mammography. A normal mammogram should not delay biopsy of a clinically suspicious abnormality. [id number] Electronically Signed: Darvin North MD at 8:32 EST ,
== END | disposition home or self-care (01) ==
LOC: OPBI 09:54
PROVIDERS: PCP Family Medicine; Visit Provider Family Medicine
DX: Z12.31 Encounter for screening mammogram for malignant neoplasm of breast (principal)
CPT/HCPCS: 77063; 77067

== ENCOUNTER → 2022-09-06 | Outpatient (CLI) | payer OTHER, SELFPAY ==
[2022-09-06 15:32] LABS: Mucous, Urine 0 SEEN /hpf (<or=2+); Red Blood Cells-Urine 0 SEEN /hpf (0-5)
[2022-09-06 16:26] LABS: Color, Urine Yellow (Yellow); Glucose, Dipstick 1000 mg/dl (Normal); Ketone-Dipstick Negative (Negative); Leukocyte Esterase-Dipstick 100 /ul (Negative); Nitrite-Dipstick Negative (Negative); Occult Blood-Urine 25 /ul (Negative); Protein-Dipstick 15 mg/dl (Negative); Specific Gravity, Urine 1.015 (1.002-1.030); Urine Bilirubin Dipstick Negative (Negative); Urine Clarity Sl. Cloudy (Clear); Urine Urobilinogen Normal (Normal)
[2022-09-06 16:32] LABS: Bacteria 1+ /hpf (None Seen); Squamous Epithelial Cells - UA 0-5 SEEN /hpf (5-10)
[2022-09-06 16:33] LABS: White Blood Cells 25-50 SEEN /hpf (0-5)
== END | disposition home or self-care (01) ==
LOC: LABSPEC 15:09
PROVIDERS: PCP Family Medicine; Visit Provider Family Medicine
DX: Z00.00 Encounter for general adult medical examination without abnormal findings (principal)
CPT/HCPCS: 81001; 87077; 87086; 87088; 87186

== ENCOUNTER → 2023-03-12 | Outpatient (CLI) | payer OTHER, SELFPAY ==
[2023-03-12 13:05] LABS: AST(SGOT) 10 U/L (15-37); Alanine Aminotransfer ALT/SGPT 33 U/L (13-56); Albumin, Serum 3.6 g/dL (3.2-5.0); Alkaline Phosphatase 87 U/L (45-117); Anion Gap 5 (5-15); BUN 35 mg/dL (7-18); BUN/Creat Ratio 23.3 RATIO (10-20); Calcium,Total 9.5 mg/dL (8.5-10.1); Chloride 107 mmol/L (98-107); Cholesterol 159 mg/dL (200); EST Glomerular Filtration Rate 37 mL/min (>60); Est Glom Filt Rate - Afr Amer 45 mL/min (>60); Globulin 3.5 g/dL (2.2-4.2); Glucose 34 mg/dL (74-106); High Density Lipoprotein 59 mg/dL; Protein, Total 7.1 g/dL (6.4-8.2); Sodium Level 139 mmol/L (136-145); Thyroid Stim Hormone (TSH) 0.58 uIU/mL (0.358-3.74); Triglycerides 132 mg/dL; Very Low Density Lipoprotein 26 mg/dL (5-40)
[2023-03-12 18:36] LABS: Vitamin B12 258 pg/mL (211-911); Vitamin D,25 Hydroxy 35.8 ng/mL
== END | disposition home or self-care (01) ==
PROVIDERS: PCP Family Medicine; Referring Provider Family Medicine; Visit Provider Family Medicine
DX: E55.9 Vitamin D deficiency, unspecified (principal); E11.22 Type 2 diabetes mellitus with diabetic chronic kidney disease; N18.30 Chronic kidney disease, stage 3 unspecified; E53.8 Deficiency of other specified B group vitamins
CPT/HCPCS: 36415; 80053; 80061; 82306; 82607; 84443

== ENCOUNTER → 2023-06-06 | Outpatient (CLI) | payer OTHER, SELFPAY ==
[2023-06-06 10:44] LABS: Vitamin B12 642 pg/mL (211-911)
[2023-06-06 11:03] LABS: Anion Gap 3 (5-15); BUN 13 mg/dL (7-18); BUN/Creat Ratio 9.6 RATIO (10-20); Calcium,Total 9.7 mg/dL (8.5-10.1); Chloride 108 mmol/L (98-107); Creatinine, Serum 1.35 mg/dL (0.55-1.02); EST Glomerular Filtration Rate 42 mL/min (>60); Est Glom Filt Rate - Afr Amer 51 mL/min (>60); Glucose 91 mg/dL (74-106); Potassium 5.1 mmol/L (3.5-5.1); Sodium Level 139 mmol/L (136-145)
== END | disposition home or self-care (01) ==
LOC: MFPLAB 08:26
PROVIDERS: PCP Family Medicine; Visit Provider Family Medicine
DX: N18.30 Chronic kidney disease, stage 3 unspecified (principal); E53.8 Deficiency of other specified B group vitamins
CPT/HCPCS: 36415; 80048; 82607

== ENCOUNTER → 2023-09-14 | Outpatient (CLI) | payer OTHER, SELFPAY ==
--- NOTE | 2023-09-14 07:11 | BI_ITS ---
MAMMOGRAPHY - BILATERAL SCREENING REASON FOR EXAM: Female, 63 years old. Routine annual screening examination. PERTINENT HISTORY: Non-contributory. TECHNIQUE: Digital bilateral breast nola (3D mammographic acquisition) in the CC and MLO projections. 2-D mediolateral oblique (MLO) and craniocaudad (CC) views of both breasts were obtained. CAD: Full Field Digital Mammography with Computer Added Detection was performed. COMPARISON: Comparison is made with prior study dated June 07, 2022 and May 01, 2020. FINDINGS: Breast Composition: There are scattered areas of fibroglandular density. There are no dominant masses or suspicious calcifications. No other significant abnormalities are identified. There has been no significant change since the prior study. BI/SCRN MAMM (CAD)W/NOLA BILAT IMPRESSION: Stable bilateral screening mammogram. Yearly follow-up mammogram recommended. (A) ASSESSMENT CATEGORY: BIRADS Category 1: Negative. A letter regarding these results will be sent to the patient by the facility within 30 days. Approximately 10% of breast cancers are not detected by mammography. A normal mammogram should not delay biopsy of a clinically suspicious abnormality. [id number] Electronically Signed: Darvin North MD at 8:01 EDT ,
== END | disposition home or self-care (01) ==
LOC: OPBI 07:11
PROVIDERS: PCP Family Medicine; Referring Provider Family Medicine; Visit Provider Family Medicine
DX: Z12.31 Encounter for screening mammogram for malignant neoplasm of breast (principal)
CPT/HCPCS: 77063; 77067

== ENCOUNTER → 2024-06-09 | Outpatient (CLI) | payer OTHER, SELFPAY ==
[2024-06-09 10:35] LABS: Vitamin B12 1169 pg/mL (211-911); Vitamin D,25 Hydroxy 29.7 ng/mL
[2024-06-09 10:48] LABS: ALB/GLOB Ratio 0.9 RATIO (0.9-2.4); AST(SGOT) 16 U/L (15-37); Alanine Aminotransfer ALT/SGPT 21 U/L (13-56); Albumin, Serum 3.4 g/dL (3.2-5.0); Alkaline Phosphatase 89 U/L (45-117); Anion Gap 5 (5-15); BUN 18 mg/dL (7-18); BUN/Creat Ratio 10.8 RATIO (10-20); Calcium,Total 9.6 mg/dL (8.5-10.1); Chloride 108 mmol/L (98-107); Cholesterol 122 mg/dL (200); Creatinine, Serum 1.67 mg/dL (0.55-1.02); EST Glomerular Filtration Rate 33 mL/min (>60); Est Glom Filt Rate - Afr Amer 40 mL/min (>60); Globulin 3.8 g/dL (2.2-4.2); Glucose 102 mg/dL (74-106); High Density Lipoprotein 53 mg/dL; Protein, Total 7.2 g/dL (6.4-8.2); Sodium Level 140 mmol/L (136-145); Triglycerides 115 mg/dL; Very Low Density Lipoprotein 23 mg/dL (5-40)
== END | disposition home or self-care (01) ==
LOC: MFPLAB 08:40
PROVIDERS: PCP Family Medicine; Referring Provider Family Medicine; Visit Provider Family Medicine
DX: E11.22 Type 2 diabetes mellitus with diabetic chronic kidney disease (principal); N18.32 Chronic kidney disease, stage 3b; E53.8 Deficiency of other specified B group vitamins; E55.9 Vitamin D deficiency, unspecified
CPT/HCPCS: 36415; 80053; 80061; 82306; 82607; 84443

== ENCOUNTER → 2024-06-23 | Outpatient (CLI) | payer OTHER, SELFPAY ==
--- NOTE | 2024-06-23 12:45 | US_ITS ---
STUDY: RENAL ULTRASOUND - COMPLETE REASON FOR EXAM: Female, 64 years old. CKD 3 TECHNIQUE: Ultrasound evaluation of the kidneys was performed with real-time and static chappell-scale imaging. COMPARISON: CT abdomen and pelvis with IV contrast 10/03/2019. FINDINGS: RIGHT KIDNEY: Smaller right kidney. The right kidney measures 8.1 x 4.0 x 3.0 cm. Normal echogenicity of the renal parenchyma. The renal cortex measures 0.6 cm. There is no right renal mass or cyst. There are no right renal calculi. There is no right hydronephrosis. Right distal ureter: Not visualized. Normal visualized right ureteral jet. LEFT KIDNEY: Normal location of the left kidney, which is normal in size. The left kidney measures 9.3 x 3.8 x 3.3 cm. There is thinning of the renal cortex but normal echogenicity. The renal cortex measures 0.7 cm. There is no left renal mass or cyst. There are no left renal calculi. There is no left hydronephrosis. Left distal ureter: Not visualized. Normal visualized left ureteral jet. BLADDER: The distended urinary bladder has a volume of 258.4 ml. No post void bladder. There is a 0.2 cm normal wall thickness of the distended urinary bladder. There is no demonstrated mass within the urinary bladder. There are no demonstrated bladder calculi. US/Kidney and Bladder IMPRESSION: 1. Asymmetry of the kidneys, the right side is smaller with normal renal echogenicity. This is most likely secondary to interval resolution of previous focal nephronia in the right lower renal parenchyma when compared to CT of 10/03/2019. 2. No ultrasonic evidence of mass or cyst in both kidneys. 3. Normal visualized distal ureteral jets. 4. Normal ultrasound of the urinary bladder. Electronically Signed: Alex Rod MD at 16:20 EST ,
== END | disposition home or self-care (01) ==
LOC: US 12:40
PROVIDERS: PCP Family Medicine; Referring Provider Family Medicine; Visit Provider Family Medicine
DX: E11.22 Type 2 diabetes mellitus with diabetic chronic kidney disease (principal); N18.30 Chronic kidney disease, stage 3 unspecified
CPT/HCPCS: 76770

== ENCOUNTER → 2024-09-19 | Outpatient (CLI) | payer OTHER, SELFPAY ==
--- NOTE | 2024-09-19 07:12 | BI_ITS ---
EXAM: SCRN MAMM (CAD)W/NOLA BILAT 09/19/2024 CLINICAL HISTORY: F, Age 64 y/o , SCREENING TECHNIQUE: Bilateral screening digital breast tomosynthesis with 2D and 3D images. Computer aided detection. COMPARISON: Prior exam(s) dated 09/14/2023. FINDINGS: TISSUE DENSITY: The breast tissue is composed of scattered area of fibroglandular density. Bilateral Breast Mammographic Findings: No significant masses, calcifications or other abnormalities are identified. BI/SCRN MAMM (CAD)W/NOLA BILAT IMPRESSION: Right Breast: BIRADS 1 NEGATIVE. Left Breast: BIRADS 1 NEGATIVE. OVERALL FINAL ASSESSMENT: BIRADS 1 NEGATIVE. RECOMMENDATION: Routine annual follow-up in 1 Year A letter with findings and recommendations will be mailed to the patient. Reading Location: [id number]
== END | disposition home or self-care (01) ==
LOC: OPBI 07:10
PROVIDERS: PCP Family Medicine; Referring Provider Family Medicine; Visit Provider Family Medicine
DX: Z12.31 Encounter for screening mammogram for malignant neoplasm of breast (principal)
CPT/HCPCS: 77063; 77067

== ENCOUNTER → 2024-09-23 | Outpatient (CLI) | payer OTHER, SELFPAY | END | disposition home or self-care (01) | LOC: LABSPEC 10:05 | PROVIDERS: PCP Family Medicine | DX: Z12.4 Encounter for screening for malignant neoplasm of cervix (principal) | CPT/HCPCS: 87491; 87591; 88175; G0145 ==

== ENCOUNTER → 2025-05-06 | Outpatient (CLI) | payer OTHER, SELFPAY ==
--- NOTE | 2025-05-06 07:29 | EKG12_ITS ---
Test Reason : PREOP Blood Pressure : */* mmHG Vent. Rate : 81 BPM Atrial Rate : 81 BPM P-R Int : 118 ms QRS Dur : 74 ms QT Int : 344 ms P-R-T Axes : 67 44 49 degrees QTcB Int : 399 ms Normal sinus rhythm Normal ECG Confirmed by YESSI ADAME, RAFFAELE ([id number]), digital editor MICA BLOUNT ([id number]) on 05/07/2025 6:29:22 AM Referred By: Thanh Amado Confirmed By: RAFFAELE DICKSON MD
--- OUTSIDE RECORDS SUMMARY | 2025-05-06 07:41 | XMS RPT_ITS | CCD ---
[facility] Care Team Providers Care Performance Improvement Specialist Name Role Phone Janet Mejia Unavailable Unavailable LIZZ CAMARILLO Unavailable Unavailable Janet Mejia Unavailable Unavailable LIZZ CAMARILLO Unavailable Unavailable Eloy Miles MD Primary Care Provider Leia Rabia hoyt Unavailable Eloy Miles MD Primary Care Provider Dr. Thanh Amado MD Primary Care Provider Dr. Thanh Amado MD Attending Provider [phone] Dr. Thanh Amado MD Referring Provider [facility] Shen [place]IN[place] Attending Provider Thanh Amado Attending Unavailable Thanh Amado Referring Unavailable Thanh Amado Primary Care Unavailable Thanh Amado Attending Unavailable Thanh Amado Referring Unavailable Thanh Amado Primary Care Unavailable Thanh Amado Referring Unavailable Thanh Amado Primary Care Unavailable Thanh Amado Attending Unavailable Thanh Amado [facility] Attending Unavailable Allergies Allergy Classification Reported Allergen(s) Allergy Type Date of Onset Reaction(s) Facility (12 sources) Meperidine Drug Allergy 01-27-[address] [facility] (5 sources) pioglitazone Drug Allergy 01-27-[address] [facility] (1 source) Meperidine Drug Allergy 10-03-2019 [facility] Repository Medications Current Medications Medication Drug Class(es) Dates Sig (Normalized) Sig (Original) amoxicillin 875 mg / clavulanate 125 mg oral tablet (2 sources) Penicillin-class Antibacterial Start: 11-01-2021 End: 11-06-2021 take 1 tablet by mouth twice daily amoxicillin-clavul anic acid (AUGMENTIN) 875-125 mg per tablet Take 1 tablet by mouth twice daily for 5 days. 10 tablet 0 11/01/2021 11/06/2021 Active Comment on above: Take 1 tablet by [facility] twice daily for 5 days. benzonatate 100 mg oral capsule (2 sources) Non-narcotic Antitussive Start: 11-01-2021 End: 11-06-2021 take 1 capsule by mouth every eight hours as needed benzonatate (TESSALON PERLES) 100 mg capsule Take 1 capsule by mouth three times daily as needed for cough for up to 5 days. 15 capsule 0 11/01/2021 11/06/2021 Active Comment on above: Take 1 capsule by [facility] three times daily as needed for cough for up to 5 days. ciprofloxacin 500 mg oral tablet (7 sources) Quinolone Antimicrobial Start: 10-05-2019 take 1 tablet by mouth twice daily Ciprofloxacin Hcl 500 MG tablet Active 500 mg PO TWICE A DAY October 05, 2019 12:00am start on 10/06/19 glipiZIDE er 2.5 mg 24 hr extended release oral tablet (7 sources) Sulfonylurea Start: 10-03-2019 take 1 tablet by mouth once daily Glipizide 2.5 mg tablet extended release 24hr Active 2.5 mg PO DAILY October 03, 2019 12:00am 24 hr metFORMIN hydrochloride 500 mg extended release oral tablet (12 sources) Biguanide Start: 10-03-2019 Metformin 500 MG tablet extended release 24 hr Active 1000 mg PO DAILY October 03, 2019 12:00am Start: 10-03-2019 take 1000 mg by mouth once leonard ly Metformin Active 1000 MG PO DAILY October 03, 2019 12:00am Comment on above: Take 2 tablets by [facility] daily with breakfast. predniSONE 20 mg oral tablet (2 sources) Start: 2 End: 2 take 2 tablets by mouth once daily predniSONE (DELTASONE) 20 mg tablet Take 2 tablets by mouth once daily for 4 days. 8 tablet 0 11/01/2021 11/05/2021 Active Comment on above: Take 2 tablets by [facility] once daily for 4 days. simvastatin 20 mg oral tablet (12 sources) HMG-CoA Reductase Inhibitor Start: 0 take 1 tablet by mouth at bedtime Simvastatin 20 MG tablet Active 20 mg PO AT BEDTIME July 23, 2019 1:00am Comment on above: Take 1 tablet by yoan th daily at bedtime. Completed/Discontinued Medications Medication Drug Class(es) Dates Sig (Normalized) Sig (Original) acetaminophen 500 mg oral tablet (5 sources) Start: 07-23-2019 take 2 tablets by mouth every six hours as needed for fever and fever acetaminophen (TYLENOL EXTRA STRENGTH) 500 mg tablet Indications: Fever, unspecified fever cause Take 2 tablets by mouth every 6 hours as needed for Pain. 2 tablet 0 07/23/2019 Active Comment on above: Take 2 tablets by mo uth every 6 hours as needed for Pain. [id number] 200 actuat albuterol 0.09 mg/actuat metered dose inhaler (5 sources) beta2-Adrenergic Agonist Start: 02-16-2021 take 2 puff(s) by inhalation every six hours as needed for wheezing PROAIR HFA 90 mcg/actuation inhaler Indications: Mild persistent asthma without complication Inhale 2 Puffs as instructed every 6 hours as needed for wheezing/shortness of breath. 18 g 11 02/16/2021 Active Comment on above: Inhale 2 Puffs as in structed every 6 hours as needed for wheezing/shortness of breath. biotin 10 mg oral capsule (5 sources) take 1 capsule by mouth once daily Biotin 10,000 mcg cap Take 1 capsule by mouth once daily. 0 Active Comment on above: Take 1 capsule by mo uth once daily. Calcium (5 sources) Phosphate Binder, Calcium take 1 tablet by mouth once daily [id number] op-marcelo-bor (CALTRATE 600-D PLUS MINERALS) 600 mg calcium- 800 unit-50 mg tab Take 1 tablet by mouth once daily. 0 Active Comment on above: Take 1 tablet by yoan th once daily. calcium carbonate 750 mg chewable tablet (5 sources) take 1 tablet by mouth once daily as needed calcium Carbonate 300 mg, 750mg, (TUMS) 300 mg (750 mg) chewable tablet Take 1 tablet by mouth once daily as needed. 0 Active Comment on above: Take 1 tablet by yoan th once daily as needed. cetirizine hydrochloride 10 mg oral tablet (5 sources) Histamine-1 Receptor Antagonist take 1 tablet by mouth once daily cetirizine (ZYRTEC) 10 mg tablet Take 10 mg by mouth once daily. 0 Active Comment on above: Take 10 mg by mouth once daily. cranberry preparation 500 mg oral capsule (5 sources) Non-Standardized Food Allergenic Extract, Non-Standardized Plant Allergenic Extract take 1 capsule by mouth once daily Cranberry Extract 500 mg cap Take 1 capsule by mouth once daily. 0 Active Comment on above: Take 1 capsule by mo [facility] once daily. ferrous sulfate 325 mg oral tablet (5 sources) take 1 tablet by mouth once daily at breakfast ferrous sulfate (IRON) 325 mg (65 mg iron) tablet Take 325 mg by mouth daily with breakfast. 0 Active Comment on above: Take 325 mg by mouth daily with breakfast. flash glucose scanning reader (FREESTYLE SAIRA 14 DAY READER) (5 sources) Start: 04-08-2021 flash glucose scanning reader (FREESTYLE SAIRA 14 DAY READER) Indications: Type 2 diabetes mellitus with diabetic polyneuropathy, with long-term current use of insulin ([facility]) Inject 1 Each subcutaneously as directed. 1 Each 0 04/08/2021 Active Comment on above: Inject 1 Each subcut aneously as directed. flash glucose sensor (FREESTYLE SAIRA 14 DAY SENSOR) kit (5 sources) Start: 10-25-2021 flash glucose sensor (FREESTYLE SAIRA 14 DAY SENSOR) kit Indications: Type 2 diabetes mellitus with diabetic polyneuropathy, with long-term current use of insulin ([facility]) Use to check blood sugars 4 times daily 2 Kit 5 10/25/2021 Active Comment on above: Use to check blood s ugars 4 times daily 60 actuat fluticasone propionate 0.5 mg/actuat / salmeterol 0.05 mg/actuat dry powder inhaler (12 sources) Corticosteroid, beta2-Adrenergic Agonist Start: 02-16-2021 take 1 puff(s) by mouth twice daily fluticasone-salmete rol (ADVAIR DISKUS) 500-50 mcg/dose dsdv Indications: Mild persistent asthma without complication Inhale 1 Puff as instructed twice daily. Rinse and gargle mouth with water after use. 3 Each 3 02/16/2021 Active Start: 02-16-2021 take 1 puff(s) by mo [facility] twice daily fluticasone-salmeterol (ADVAIR DISKUS) 500-50 mcg/dose dsdv Indications: Mild persistent asthma without complication Inhale 1 Puff as instructed twice daily. Rinse and gargle mouth with water after use. 3 Each 3 02/16/2021 Active Start: 07-23-2019 take 1 puff(s) by in halation once daily Fluticasone Propion-Salmeterol 1 PUFF inhaler Active 1 - 2 NMA IH DAILY July 23, 2019 1:00am Start: 07-23-2019 take 1 puff(s) by in halation once daily Fluticasone Propion-Salmeterol Active 1 - 2 PUFF IH DAILY July 23, 2019 12:00am Start: 07-23-2019 take 1 puff(s) by in halation once daily Fluticasone Propion-Salmeterol Active 1 - 2 PUFF IH DAILY July 23, 2019 1:00am Comment on above: Inhale 1 Puff as ins tructed twice daily. Rinse and gargle mouth with water after use. 3 ml insulin degludec 200 unt/ml pen injector (12 sources) Insulin Analog Start: 10-25-2021 insulin degludec (TRESIBA) 200 unit/mL (3 mL) injection Indications: Type 2 diabetes mellitus with diabetic polyneuropathy, with long-term current use of insulin (HCC) Inject 30 Units subcutaneously daily at bedtime. 0 10/25/2021 Active Start: 10-03-2019 Insulin Deglud ec 200 unit/mL (3 mL) insulin pen Active 80 U SQ AT BEDTIME October 03, 2019 12:00am Comment on above: Inject 30 Units subc utaneously daily at bedtime. 3 ml insulin lispro 100 unt/ml pen injector (5 sources) Insulin Analog Start: 022 inject 12 [IU] by subcutaneous injection three times daily before mealtime, then inject 40 [IU] by subcutaneous injection once daily insulin lispro (HUMALOG KWIKPEN INSULIN) 100 unit/mL Indications: Type 2 diabetes mellitus with diabetic polyneuropathy, with long-term current use of insulin (HCC) Inject 12 Units subcutaneously three times daily before meals plus sliding scale (add 1 units for every 50 mg/dL above 150 mg/dL). Maximum of 40 units/day 0 10/25/2021 Active Comment on above: Inject 12 Units subc utaneously three times daily before meals plus sliding scale (add 1 units for every 50 mg/dL above 150 mg/dL). Maximum of 40 units/day L. acidophilus/dig enz cmb 5 (PROBIOTIC-DIGEST REX ENZYMES ORAL) (5 sources) L. acidophilus/d ig enz cmb 5 (PROBIOTIC-DIGESTIVE ENZYMES ORAL) Take 1 tablet by mouth once daily. 0 Active Comment on above: Take 1 tablet by yoan th once daily. lisinopril 5 mg oral tablet (5 sources) Angiotensin Converting Enzyme Inhibitor Start: 021 take 1 tablet by mouth once daily lisinopril (ZESTRIL, PRINIVIL) 5 mg tablet Indications: Type 2 diabetes mellitus without complication, with long-term current use of insulin (HCC) , Stage 3a chronic kidney disease (HCC) Take 1 tablet by mouth once daily. 90 tablet 3 02/16/2021 Active Comment on above: Take 1 tablet by yoan th once daily. omeprazole 20 mg delayed release oral capsule (5 sources) Proton Pump Inhibitor take 1 capsule by mouth once daily omeprazole (PRILOSEC) 20 mg capsule Take 20 mg by mouth once daily. 0 Active Comment on above: Take 20 mg by mouth once daily. Problems Problem Classification Problem Date Documented Da te Episodic/Chronic Asthma (5 sources) Asthma; Translations: [Unspecified asthma, uncomplicated] 01-27-2019 Chronic Chronic kidney disease (5 sources) Chronic kidney disease stage 3; Translations: [CKD (chronic kidney disease) stage 3, GFR 30-59 ml/min] 01-27-2019 Chronic Diabetes mellitus with complications (3 sources) Type 2 diabetes mellitus with diabetic chronic kidney disease; Translations: [Type 2 diabetes mellitus with diabetic chronic kidney disease] Onset: 03-21-2018 Chronic Diabetes mellitus without complication (5 sources) Type 2 diabetes mellitus; Translations: [Type 2 diabetes mellitus without complications] 01-27-2019 Chronic Disorders of lipid metabolism (5 sources) Hyperlipidemia; Translations: [Hyperlipidemia, unspecified] 01-27-2019 Chronic Influenza (7 sources) Influenza due to Influenza A virus; Translations: [Influenza due to other identified influenza virus with other respiratory manifestations] 07-24-2019 Episodic Other screening for suspected conditions (not mental disorders or infectious disease) (2 sources) Encounter for screening for malignant neoplasm of cervix; Translations: [Encounter for screening mammogram for malignant neoplasm of breast] Onset: 09-24-2024 Episodic Other upper respiratory disease (1 source) Congestion of nasal sinus; Translations: [Nasal congestion] Episodic Results Test Name Value Interpretation Reference Range Facility PAP I-G CT/NG/T RF HPVon ADEQ Comment Normal . [facility] Comment on above: Order Comment: Speci men Comment: [id number] Specimen Comment: Source.............Cervix;Endocervix Specimen Comment: No. of containers..01 ThinPrep Vial Result Comment: Sati sfactory for evaluation. Endocervical and/or squamous metaplastic cells (endocervical component) are present. Performed By: #### L 7400.0325 #### [facility] [address] [place], [place], [id number] CHLAMY,NUC ACID Negative Normal Negative [facility] Comment on above: Order Comment: Speci men Comment: [id number] Specimen Comment: Source.............Cervix;Endocervix Specimen Comment: No. of containers..01 ThinPrep Vial Performed By: #### L 7400.0325 #### [facility] [address] [place], [address] COMM . Normal . [facility] Comment on above: Order Comment: Speci men Comment: [id number] Specimen Comment: Source.............Cervix;Endocervix Specimen Comment: No. of containers..01 ThinPrep Vial Performed By: #### L 7400.0325 #### [facility] [address] [place], [address] COMMENT Comment Normal . [facility] Comment on above: Order Comment: Speci men Comment: [id number] Specimen Comment: Source.............Cervix;Endocervix Specimen Comment: No. of containers..01 ThinPrep Vial Result Comment: This liquid based ThinPrep(R) pap test was screened with the use of an image guided system. Performed By: #### L 7400.0325 #### [facility] [address] [place], [place], [id number] DIAG Comment Normal . [facility] Comment on above: Order Comment: Speci men Comment: [id number] Specimen Comment: Source.............Cervix;Endocervix Specimen Comment: No. of containers..01 ThinPrep Vial Result Comment: NEGA TIVE FOR INTRAEPITHELIAL LESION OR MALIGNANCY. THIS SPECIMEN WAS RESCREENED PART OF OUR SOCCER BALL ASSEMBLER PROGRAM. Performed By: #### L 7400.0325 #### [facility] [address] [place], [address] GC BY NUC ACID Negative Normal Negative [facility] Comment on above: Order Comment: Speci men Comment: [id number] Specimen Comment: Source.............Cervix;Endocervix Specimen Comment: No. of containers..01 ThinPrep Vial Performed By: #### L 7400.0325 #### [facility] [address] [place], [address] PAPSMR Comment Normal . [facility] Comment on above: Order Comment: Speci men Comment: [id number] Specimen Comment: Source.............Cervix;Endocervix Specimen Comment: No. of containers..01 ThinPrep Vial Result Comment: The Pap smear is a screening test designed to aid in the detection of premalignant and malignant conditions of the uterine cervix. It is not a diagnostic procedure and should not be used as the sole means of detecting cervical cancer. Both false-positive and false-negative reports do occur. Performed By: #### L 7400.0325 #### [facility] [address] [place], [address] PERFORM Comment Normal . [facility] Comment on above: Order Comment: Speci men Comment: [id number] Specimen Comment: Source.............Cervix;Endocervix Specimen Comment: No. of containers..01 ThinPrep Vial Result Comment: Antonella Cardozo, Non Cdl Driver (ASCP) Performed By: #### L 7400.0325 #### [facility] [address] [place], [place], [id number] QC REV Comment Normal . [facility] Comment on above: Order Comment: Speci men Comment: [id number] Specimen Comment: Source.............Cervix;Endocervix Specimen Comment: No. of containers..01 ThinPrep Vial Result Comment: Stephania Caballero, Bone Char Kiln Operator (ASCP) Performed By: #### L 7400.0325 #### [facility] [address] [place], [place], [id number] TRICH VAG FLIP Negative Normal Negative [facility] Comment on above: Order Comment: Speci men Comment: [id number] Specimen Comment: Source.............Cervix;Endocervix Specimen Comment: No. of containers..01 ThinPrep Vial Result Comment: Perf ormed at: [facility] - [address] [id number] Sales Representative Supervisor: Frances Hoang MD, Phone: [phone] Performed at: [facility] [address] [address] [place], [place] [id number] Sales Representative Supervisor: Carlos Smith MD, Phone: [phone] Performed at: =G - [facility] [id number] Sales Representative Supervisor: Frances Hoang MD, Phone: [phone] Performed By: #### L 7400.0325 #### [facility] [address] [place], [address] Breast imaging reportOrdered By: Rosalva Aguanunu on 09-19-2024 Study report [facility] Imaging Services [address] [place], [place] [id number] SCRN MAMM (CAD)W/NOLA BILAT MR#: [id number] Acct: [id number] Name: GLENDY PELAEZ Rep #: [id number] : 1960 F 64 From: Karen Che MD PCP: Dr. Thanh Amado MD Status: REG CLI Study:SCRN MAMM (CAD)W/NOLA BILAT Date of Exa m: 09/19/24 Exam# [id number] Ordering Dr: Ramon Amado MD EXAM: SCRN MAMM (CAD)W/NOLA BILAT 09/19/2024 CLINICAL HISTORY: F, Age 64 y/o , SCREENING TECHNIQUE: Bilateral screening digital breast tomosynthesis with 2D and 3D images. Computeraided detection. COMPARISON: Prior exam(s) dated 09/14/2023. FINDINGS: TISSUE DENSITY: The breast tissue is composed of scattered area of fibroglandular density. Bilateral Breast Mammographic Findings: No significant masses, calcifications or other abnormalities are identified. BI/SCRN MAMM (CAD)W/NOLA BILAT IMPRESSION: Right Breast: BIRADS 1 NEGATIVE. Left Breast: BIRADS 1 NEGATIVE. OVERALL FINAL ASSESSMENT: BIRADS 1 NEGATIVE. RECOMMENDATION: Routine annual follow-up in 1 Year A letter with findings and recommendations will be mailed to the patient. Reading Location: [facility] CC: Dr. Thanh Amado MD ~ Breaker Boss: Signed [facility] SCRN MAMM (CAD)W/NOLA BILATo n 09-19-2024 SCRN MAMM (CAD)W/NOLA BILAT [facility] Imaging Services [address] [place], [place] [id number] SCRN MAMM (CAD)W/NOLA BILAT MR#: [id number] Acct: [id number] Name: GLENDY PELAEZ Rep #: [id number] : 1960 F 64 From: Rosalva Che MD PCP: Dr. Thanh Amado MD Status: REG CLI Study: SCRN MAMM (CAD)W/NOLA BILAT Date of Exam: 10/10 Exam# [id number] Ordering Dr: Thanh Amado EXAM: SCRN MAMM (CAD)W/NOLA BILAT 09/19/2024 CLINICAL HISTORY: F, Age 64 y/o , SCREENING TECHNIQUE: Bilateral screening digital breast tomosynthesis with 2D and 3D images. Computer aided detection. COMPARISON: Prior exam(s) dated 09/14/2023. FINDINGS: TISSUE DENSITY: The breast tissue is composed of scattered area of fibroglandular density. Bilateral Breast Mammographic Findings: No significant masses, calcifications or other abnormalities are identified. BI/SCRN MAMM (CAD)W/NOLA BILAT IMPRESSION: Right Breast: BIRADS 1 NEGATIVE. Left Breast: BIRADS 1 NEGATIVE. OVERALL FINAL ASSESSMENT: BIRADS 1 NEGATIVE. RECOMMENDATION: Routine annual follow-up in 1 Year A letter with findings and recommendations will be mailed to the patient. Reading Location: [facility] CC: Dr. Thanh Amado MD Breaker Boss: Signed Normal [facility] Kidney and Bladderon 025 Kidney and Bladder [facility] Imaging Services [address] [place], [place] [address] Kidney and Bladder MR#: [id number] Acct: [id number] Name: GLENDY PELAEZ Rep #: [id number] : 1960 F 64 From: Alex Rod MD PCP: Dr. Thanh Amado MD Status: REG CLI Study: Kidney and Bladder Date of Exam: 06/23/24 Exam# [id number] Ordering Dr: Thanh Amado [id number] STUDY: RENAL ULTRASOUND - COMPLETE REASON FOR EXAM: Female, 64 years old. CKD 3 TECHNIQUE: Ultrasound evaluation of the kidneys was performed with real-time and static chappell-scale imaging. COMPARISON: CT abdomen and pelvis with IV contrast 10/03/2019. FINDINGS: RIGHT KIDNEY: Smaller right kidney. The right kidney measures 8.1 x 4.0 x 3.0 cm. Normal echogenicity of the renal parenchyma. The renal cortex measures 0.6 cm. There is no right renal mass or cyst. There are no right renal calculi. There is no right hydronephrosis. Right distal ureter: Not visualized. Normal visualized right ureteral jet. LEFT KIDNEY: Normal location of the left kidney, which is normal in size. The left kidney measures 9.3 x 3.8 x 3.3 cm. There is thinning of the renal cortex but normal echogenicity. The renal cortex measures 0.7 cm. There is no left renal mass or cyst. There are no left renal calculi. There is no left hydronephrosis. Left distal ureter: Not visualized. Normal visualized left ureteral jet. BLADDER: The distended urinary bladder has a volume of 258.4 ml. No post void bladder. There is a 0.2 cm normal wall thickness of the distended urinary bladder. There is no demonstrated mass within the urinary bladder. There are no demonstrated bladder calculi. US/Kidney and Bladder IMPRESSION: 1. Asymmetry of the kidneys, the right side is smaller with normal renal echogenicity. This is most likely secondary to interval resolution of previous focal nephronia in the right lower renal parenchyma when compared to CT of 10/03/2019. 2. No ultrasonic evidence of mass or cyst in both kidneys. 3. Normal visualized distal ureteral jets. 4. Normal ultrasound of the urinary bladder. Electronically Signed: Alex Rod MD at 16:20 EST , CC: Dr. Thanh Amado MD Breaker Boss: Signed Normal [facility] [id number] DOrdered By: Ramon Amado on 06-09-2024 Vitamin D 25-Hydroxy 29.7 ng/mL [facility] Comment on above: Vitamin D 25(OH) Sta tus Range Deficiency <20 ng/mL (50nmol/L) Insufficiency 20 - 30 ng/mL (50 - 75 nmol/L) Sufficiency 30 - 100 ng/mL (75 - 250 nmol/L) Toxicity >100 ng/mL (>250 nmol/L) Albumin to globulin ratioOrd ered By: Thanh Amado on 06-09-2024 Albumin/Globulin [Mass ratio] 0.9 {ratio} 0.9-2.4 [facility] Bilirubin, totalOrdered By: Thanh Amado on 06-09-2024 Bilirubin [Mass/Vol] 0.50 mg/dL 0.20-1.00 [facility] Comment on above: For patients on eltr ombopag therapy, use of Dimension [place] TBIL is not recommended. Blood urea nitrogen (BUN)/cr eatinine ratioOrdered By: Thanh mAado on 06-09-2024 Urea nitrogen/Creatinine [Mass ratio] 10.8 mg/mg 10-20 [facility] Carbon dioxide measurementOr dered By: Thanh Amado on 06-09-2024 CO2 [Moles/Vol] 26.0 mmol/L 21.0-32.0 [facility] Chloride measurementOrdered By: Thanh Amado on 06-09-2024 Chloride [Moles/Vol] 108 mmol/L High 98-107 [facility] Comprehensive Metabolic Prof ilon 06-09-2024 Albumin [Mass/Vol] 3.4 g/dL Normal 3.2-5.0 [facility] Comment on above: Performed By: #### L 501.9542, L503.0105, L506.1000, L500.4050, L500.4100 #### [facility] [address] [place], [address] Albumin/Globulin [Mass ratio] 0.9 {ratio} Normal 0.9-2.4 [facility] Comment on above: Performed By: #### L 501.9520, L503.0105, L506.1000, L500.4050, L500.4100 #### [facility] [address] [place], [address] ALK P 89 U/L Normal 45-117 [facility] Comment on above: Performed By: #### L 501.9520, L503.0105, L506.1000, L500.4050, L500.4100 #### [facility] [address] [place], [address] ALT [Catalytic activity/Vol] 21 U/L Normal 13-56 [facility] Comment on above: Performed By: #### L 501.9520, L503.0105, L506.1000, L500.4050, L500.4100 #### [facility] [address] [place], [address] AST [Catalytic activity/Vol] 16 U/L Normal 15-37 [facility] Comment on above: Performed By: #### L [id number], L503.0105, L506.1000, L500.4050, L500.4100 #### [facility] [address] [place], [address] Bilirubin [Mass/Vol] 0.50 mg/dL Normal 0.20-1.00 [facility] Comment on above: Result Comment: For patients on eltrombopag therapy, use of Dimension [place] TBIL is not recommended. Performed By: #### L [id number], L503.0105, L506.1000, L500.4050, L500.4100 #### [facility] [address] [place], [address] BUN/CRE 10.8 RATIO Normal 10-20 [facility] Comment on above: Performed By: #### L [id number], L503.0105, L506.1000, L500.4050, L500.4100 #### [facility] [address] [place], [address] CA,Total 9.6 mg/dL Normal 8.5-10.1 [facility] Comment on above: Performed By: #### L [id number], L503.0105, L506.1000, L500.4050, L500.4100 #### [facility] [address] [place], [address] Chloride [Moles/Vol] 108 mmol/L High 98-107 [facility] Comment on above: Performed By: #### L [id number], L503.0105, L506.1000, L500.4050, L500.4100 #### [facility] [address] [place], [address] CO2 [Moles/Vol] 26.0 mmol/L Normal 21.0-32.0 [facility] Comment on above: Performed By: #### L [id number], [id number], L506.1000, L500.4050, L500.4100 #### [facility] [address] [place], [address] Creatinine [Mass/Vol] 1.67 mg/dL High 0.55-1.02 [facility] Comment on above: Result Comment: The validity of the calculated GFR GFRAA in patients over 70 years has not been determined. Clinical correlation is essential. Performed By: #### L [id number], L503.0105, L506.1000, L500.4050, L500.4100 #### [facility] [address] [place], [address] EST GFR - AA 40 mL/min Low >60 [facility] Comment on above: Result Comment: Afri can Cypriot GFR Calc Performed By: #### L [id number], [id number], L506.1000, L500.4050, L500.4100 #### [facility] [address] [place], [address] GAP 5 Normal 5-15 [facility] Comment on above: Performed By: #### L [id number], L503.0105, L506.1000, L500.4050, L500.4100 #### [facility] [address] [place], [address] GFR/1.73 sq M.predicted among non-blacks MDRD (S/P/Bld) [Vol rate/Area] 33 mL/min/{1.73_m2} Low >60 [facility] Comment on above: Result Comment: Non- GFR Calc Performed By: #### L [id number], L503.0105, L506.1000, L500.4050, L500.4100 #### [facility] [address] [place], [address] Globulin (S) [Mass/Vol] 3.8 g/dL Normal 2.2-4.2 [facility] Comment on above: Performed By: #### L [id number], L503.0105, L506.1000, L500.4050, L500.4100 #### [facility] [address] [place], [address] Glucose [Mass/Vol] 102 mg/dL Normal 74-106 [facility] Comment on above: Result Comment: Fast ing Glucose result from 100 to 125 mg/dL suggests IMPAIRED HOMEOSTASIS per A.D.A. criteria. Performed By: #### L [id number], L503.0105, L506.1000, L500.4050, L500.4100 #### [facility] [address] [place], [address] Potassium [Moles/Vol] 5.0 mmol/L Normal 3.5-5.1 [facility] Comment on above: Performed By: #### L [id number], L503.0105, L506.1000, L500.4050, L500.4100 #### [facility] [address] [place], [address] Sodium [Moles/Vol] 140 mmol/L Normal 136-145 [facility] Comment on above: Performed By: #### L [id number], [id number], L506.1000, L500.4050, L500.4100 #### [facility] [address] [place], [address] T PROT 7.2 g/dL Normal 6.4-8.2 [facility] Comment on above: Performed By: #### L [id number], L503.0105, L506.1000, L500.4050, L500.4100 #### [facility] [address] [place], [address] Urea nitrogen [Mass/Vol] 18 mg/dL Normal 7-18 [facility] Comment on above: Performed By: #### L [id number], L503.0105, L506.1000, L500.4050, L500.4100 #### [facility] [address] [place], [address] Estimated glomerular filtrat ion rate (GFR) AmericanOrdered By: Thanh Amado on 06-09-2024 Estimated GFR (MDRD) Amer 40 mL/min Low >60 [facility] Comment on above: GFR Calc Glomerular filtration rate ( GFR) estimationOrdered By: Thanh Amado on 06-09-2024 Estimated GFR (MDRD) Non-Af Amer 33 mL/min Low >60 [facility] Comment on above: Non- GFR Calc Glucose measurementOrdered B y: Thanh Amado on 06-09-2024 Glucose [Mass/Vol] 102 mg/dL 74-106 [facility] Comment on above: Fasting Glucose resu lt from 100 to 125 mg/dL suggests IMPAIRED HOMEOSTASIS per A.D.A. criteria. High density lipoprotein (HD L) measurementOrdered By: Thanh Amado on 06-09-2024 Cholesterol in HDL [Mass/Vol] 53 mg/dL >40 [facility] Comment on above: The drugs N-Acetylcy steine and Metamizole may falsely depress this assay. Reference Range HDL <40 mg/dL Low HDL Cholesterol HDL >or= 60 mg/dL High HDL Cholesterol Laboratory - Chemistry and C hemistry - challengeOrdered By: Thanh Amado on 06-09-2024 AST [Catalytic activity/Vol] 16 U/L 15-37 [facility] Lipid Profileon 06-09-2024 Cholesterol [Mass/Vol] 122 mg/dL Normal 200 [facility] Comment on above: Result Comment: <200 mg/dL Desirable 200-240 mg/dL Borderline >240 mg/dL High Risk Performed By: #### L [id number], L503.0105, L506.1000, L500.4050, L500.4100 #### [facility] [address] [place], [address] Cholesterol in HDL [Mass/Vol] 53 mg/dL Normal [facility] Comment on above: Result Comment: The drugs N-Acetylcysteine and Metamizole may falsely depress this assay. Reference Range HDL <40 mg/dL Low HDL Cholesterol HDL >or= 60 mg/dL High HDL Cholesterol Performed By: #### L [id number], L503.0105, L506.1000, L500.4050, L500.4100 #### [facility] [address] [place], [address] Cholesterol in LDL [Mass/Vol] 46 mg/dL Normal 0-130 [facility] Comment on above: Performed By: #### L [id number], L503.0105, L506.1000, L500.4050, L500.4100 #### [facility] [address] [place], [address] Cholesterol in VLDL [Mass/Vol] 23 mg/dL Normal 5-40 [facility] Comment on above: Performed By: #### L [id number], L503.0105, L506.1000, L500.4050, L500.4100 #### [facility] [address] [place], [address] Triglyceride [Mass/Vol] 115 mg/dL Normal [facility] Comment on above: Result Comment: The drugs N-Acetylcysteine and Metamizole may falsely depress this assay. Serum Triglycerides Reference Interval Normal <150 mg/dL Borderline high 150 - 199 mg/dL High 200 - 499 mg/dL Very High > or = 500 mg/dL Performed By: #### L [id number], L503.0105, L506.1000, L500.4050, L500.4100 #### [facility] [address] [place], [address] Low density lipoprotein (LDL ) cholesterol measurementOrdered By: Thanh Amado on 06-09-2024 Cholesterol in LDL [Mass/Vol] 46 mg/dL 0-130 [facility] Potassium measurementOrdered By: Thanh Amado on 06-09-2024 Potassium [Moles/Vol] 5.0 mmol/L 3.5-5.1 [facility] Serum anion gap measurementO rdered By: Thanh Amado on 06-09-2024 Anion gap [Moles/Vol] 5 mmol/L 5-15 [facility] Serum globulin measurementOr dered By: Thanh Amado on 06-09-2024 Globulin (S) [Mass/Vol] 3.8 g/dL 2.2-4.2 [facility] Serum or plasma alanine ribeiro otransferase (ALT) measurementOrdered By: Thanh Amado on 06-09-2024 ALT [Catalytic activity/Vol] 21 U/L 13-56 [facility] Serum or plasma albumin norris urement (mass/volume)Ordered By: Thanh Amado on 06-09-2024 Albumin [Mass/Vol] 3.4 g/dL 3.2-5.0 [facility] Serum or plasma alkaline mica sphatase measurementOrdered By: Thanh Amado on 06-09-2024 ALP [Catalytic activity/Vol] 89 U/L 45-117 [facility] Serum or plasma calcium norris urement (mass/volume)Ordered By: Thanh Amado on 06-09-2024 Calcium [Mass/Vol] 9.6 mg/dL 8.5-10.1 [facility] Serum or plasma cholesterol measurement (mass/volume)Ordered By: Thanh Amado on 06-09-2024 Cholesterol [Mass/Vol] 122 mg/dL <200 [facility] Comment on above: <200 mg/dL Desirable 200-240 mg/dL Borderline >240 mg/dL High Risk Serum or plasma creatinine m easurement (mass/volume)Ordered By: Thahn Amado on 06-09-2024 Creatinine [Mass/Vol] 1.67 mg/dL High 0.55-1.02 [facility] Comment on above: The validity of the calculated GFR & GFRAA in patients over 70 years has not been determined. Clinical correlation is essential. Serum or plasma urea nitroge n measurement (mass/volume)Ordered By: Thanh Amado on 06-09-2024 Urea nitrogen [Mass/Vol] 18 mg/dL 7-18 [facility] Sodium levelOrdered By: Alice Amado on 06-09-2024 Sodium [Moles/Vol] 140 mmol/L 136-145 [facility] TSH QnOrdered By: Jamin Amado on 06-09-2024 Thyroid Stimulating Hormone (TSH) 1.990 uIU/mL 0.358-3.74 0 [facility] Thyroid Stim Hormone (TSH)on 06-09-2024 TSH 1.990 uIU/mL Normal 0.358-3.74 0 [facility] Comment on above: Performed By: #### L [id number], L503.0105, L506.1000, L500.4050, L500.4100 #### [facility] [place], [address] Total proteinOrdered By: Kelly Amado on 06-09-2024 Protein [Mass/Vol] 7.2 g/dL 6.4-8.2 [facility] Triglycerides measurementOrd ered By: Thanh Amado on 06-09-2024 Triglyceride [Mass/Vol] 115 mg/dL <199 [facility] Comment on above: The drugs N-Acetylcy steine and Metamizole may falsely depress this assay.Serum Triglycerides Reference Interval Normal <150 mg/dL Borderline high 150 - 199 mg/dL High 200 - 499 mg/dL Very High > or = 500 mg/dL Very low density lipoprotein (VLDL) cholesterol measurementOrdered By: Thanh Amado on 06-09-2024 VLDL Cholesterol 23 mg/dL 5-40 [facility] Vitamin B12on 06-09-2024 Cobalamin (Vitamin B12) [Mass/Vol] 1169 pg/mL High 211-911 [facility] Comment on above: Performed By: #### L [id number], L503.0105, L506.1000, L500.4050, L500.4100 #### [facility] [address] [place], [place], [address] Vitamin B12 measurementOrder ed By: Thahn Amado on 06-09-2024 Cobalamin (Vitamin B12) [Mass/Vol] 1169 pg/mL High 211-911 [facility] Vitamin D,25 Hydroxyon 06-09 Vitamin D 25-OH 29.7 ng/mL Normal [facility] Comment on above: Result Comment: Shayla min D 25(OH) Status Range Deficiency <20 ng/mL (50nmol/L) Insufficiency 20 - 30 ng/mL (50 - 75 nmol/L) Sufficiency 30 - 100 ng/mL (75 - 250 nmol/L) Toxicity >100 ng/mL (>250 nmol/L) Performed By: #### L [id number], L503.0105, L506.1000, L500.4050, L500.4100 #### [facility] [address] [place], [address] Basophil percentageOrdered B y: Jamin Amado on 06-06-2023 Chloride [Moles/Vol] 108 mmol/L 98-107 [facility] Glucose [Mass/Vol] 91 mg/dL 74-106 [facility] Potassium [Moles/Vol] 5.1 mmol/L 3.5-5.1 [facility] Sodium [Moles/Vol] 139 mmol/L 136-145 [facility] - Chemistry and C hemistry - challengeOrdered By: Jamin Amado on 06-06-2023 CO2 [Moles/Vol] 28.0 mmol/L 21.0-32.0 [facility] Cobalamin (Vitamin B12) [Mass/Vol] 642 pg/mL 211-911 [facility] Urea nitrogen/Creatinine [Mass ratio] 9.6 mg/mg 10- [facility] No Panel InformationOrdered By: Jamin Amado on 06-06-2023 Estimated GFR (MDRD) Amer 51 mL/min >60 [facility] Comment on above: GFR Calc Estimated GFR (MDRD) Non-Af Amer 42 mL/min >60 [facility] Comment on above: Non- GFR Calc Serum or plasma calcium norris urement (mass/volume)Ordered By: Jamin Amado on 06-06-2023 Calcium [Mass/Vol] 9.7 mg/dL 8.5-10.1 [facility] Serum or plasma creatinine m easurement (mass/volume)Ordered By: Jamin Amado on 06-06-2023 Creatinine [Mass/Vol] 1.35 mg/dL 0.55-1.02 [facility] Comment on above: The validity of the calculated GFR & GFRAA in patients over 70 years has not been determined. Clinical correlation is essential. Serum or plasma urea nitroge n measurement (mass/volume)Ordered By: Jamin Amado on 06-06-2023 Urea nitrogen [Mass/Vol] 13 mg/dL 7-18 [facility] Thin prep Papanicolaou smear with manual screeningOrdered By: Jamin Amado on 06-06-2023 Thin prep Papanicolaou smear with manual screening 3 5-15 [facility] Basophil percentageOrdered B y: Jamin Amado on 03-12-2023 Bilirubin [Mass/Vol] 0.40 mg/dL 0.20-1.00 [facility] Comment on above: For patients on eltr ombopag therapy, use of Dimension [place] TBIL is not recommended. Chloride [Moles/Vol] 107 mmol/L 98-107 [facility] Cholesterol [Mass/Vol] 159 mg/dL <200 [facility] Comment on above: <200 mg/dL Desirable 200-240 mg/dL Borderline >240 mg/dL High Risk Glucose [Mass/Vol] 34 mg/dL 74-106 [facility] Comment on above: Glucose result less than 50 mg/dL suggests HYPOGLYCEMIA. Potassium [Moles/Vol] 4.0 mmol/L 3.5-5.1 [facility] Protein [Mass/Vol] 7.1 g/dL 6.4-8.2 [facility] Sodium [Moles/Vol] 139 mmol/L 136-145 [facility] Triglyceride [Mass/Vol] 132 mg/dL <199 [facility] Comment on above: The drugs N-Acetylcy steine and Metamizole may falsely depress this assay.Serum Triglycerides Reference Interval Normal <150 mg/dL Borderline high 150 - 199 mg/dL High 200 - 499 mg/dL Very High > or = 500 mg/dL Laboratory - Chemistry and C hemistry - challengeOrdered By: Jamin Amado on 03-12-2023 ALP [Catalytic activity/Vol] 87 U/L 45-117 [facility] ALT [Catalytic activity/Vol] 33 U/L 13-56 [facility] CO2 [Moles/Vol] 27.0 mmol/L 21.0-32.0 [facility] Cobalamin (Vitamin B12) [Mass/Vol] 258 pg/mL 211-911 [facility] Globulin (S) [Mass/Vol] 3.5 g/dL 2.2-4.2 [facility] Urea nitrogen/Creatinine [Mass ratio] 23.3 mg/mg 10-20 [facility] No Panel InformationOrdered By: Jamin Amado on 03-12-2023 Estimated GFR (MDRD) Amer 45 mL/min >60 [facility] Comment on above: GFR Calc Estimated GFR (MDRD) Non-Af Amer 37 mL/min >60 [facility] Comment on above: Non- GFR Calc Thyroid Stimulating Hormone (TSH) 0.58 uIU/mL 0.358-3.74 [facility] Vitamin D 25-Hydroxy 35.8 ng/mL [facility] Comment on above: Vitamin D 25(OH) Sta tus Range Deficiency <20 ng/mL (50nmol/L) Insufficiency 20 - 30 ng/mL (50 - 75 nmol/L) Sufficiency 30 - 100 ng/mL (75 - 250 nmol/L) Toxicity >100 ng/mL (>250 nmol/L) Serum or plasma albumin norris urement (mass/volume)Ordered By: Jamin Amado on 03-12-2023 Albumin [Mass/Vol] 3.6 g/dL 3.2-5.0 [facility] Serum or plasma albumin/glob ulin mass ratioOrdered By: Jamin Amado on 03-12-2023 Albumin/Globulin [Mass ratio] 1.0 {ratio} 0.9-2.4 [facility] Serum or plasma calcium norris urement (mass/volume)Ordered By: Jamin Amado on 03-12-2023 Calcium [Mass/Vol] 9.5 mg/dL 8.5-10.1 [facility] Serum or plasma cholesterol in HDL measurement (mass/volume)Ordered By: Jamin Amado on 03-12-2023 Cholesterol in HDL [Mass/Vol] 59 mg/dL >40 [facility] Comment on above: The drugs N-Acetylcy steine and Metamizole may falsely depress this assay. Reference Range HDL <40 mg/dL Low HDL Cholesterol HDL >or= 60 mg/dL High HDL Cholesterol Serum or plasma cholesterol in VLDL measurement (mass/volume)Ordered By: Jamin Amado on 03-12-2023 Cholesterol in VLDL [Mass/Vol] 26 mg/dL 5-40 [facility] Serum or plasma creatinine m easurement (mass/volume)Ordered By: Jamin Amado on 03-12-2023 Creatinine [Mass/Vol] 1.50 mg/dL 0.55-1.02 [facility] Comment on above: The validity of the calculated GFR & GFRAA in patients over 70 years has not been determined. Clinical correlation is essential. Serum or plasma low density lipoprotein (LDL) cholesterol measurement (mass/volume)Ordered By: Jamin Amado on 03-12-2023 Cholesterol in LDL [Mass/Vol] 74 mg/dL 0-130 [facility] Serum or plasma urea nitroge n measurement (mass/volume)Ordered By: Jamin Amado on 03-12-2023 Urea nitrogen [Mass/Vol] 35 mg/dL 7-18 [facility] Thin prep Papanicolaou smear with manual screeningOrdered By: Jamin Amado on 03-12-2023 Thin prep Papanicolaou smear with manual screening 10 U/L 15-37 [facility] Thin prep Papanicolaou smear with manual screening 5 5-15 [facility] Culture, urineOrdered By: Dr Moises Amado on 09-08-2022 Bacteria identified Cx Nom (U) Escherichia coli [facility] Basophil percentageOrdered B y: Dr. Amado on 09-06-2022 Basophil percentage 25-50 SEEN /hpf 0-5 [facility] Bilirubin Test strip Ql (U)O rdered By: Dr. Amado on 09-06-2022 Bilirubin Ql (U) Negative Negative [facility] Ketones Test strip Ql (U)Ord ered By: Dr. Amado on 09-06-2022 Ketones Ql (U) Negative Negative [facility] Mucus LM Ql (Urine sed)Order ed By: Dr. Amado on 09-06-2022 Mucus Ql (Urine sed) 0 SEEN /hpf [facility] Nitrite Test strip Ql (U)Ord ered By: Dr. Amado on 09-06-2022 Nitrite Ql (U) Negative Negative [facility] Protein Test strip Ql (U)Ord ered By: Dr. Amado on 09-06-2022 Protein Ql (U) 15 mg/dl Negative [facility] Squamous epithelial cells de tection in urine sediment by light microscopyOrdered By: Dr. Amado on 09-06-2022 Epithelial cells.squamous LM Ql (Urine sed) 0-5 SEEN /hpf 5-10 [facility] Urine blood detectionOrdered By: Dr. Amado on 09-06-2022 RBC Ql (U) 25 /ul Negative [facility] RBC Ql (U) 0 SEEN /hpf 0-5 [facility] Urine clarityOrdered By: Dr. Amado on 09-06-2022 Clarity (U) Sl. Cloudy Clear [facility] Urine color determinationOrd ered By: Dr. Amado on 09-06-2022 Color (U) Yellow Yellow [facility] Urine glucose detectionOrder ed By: Dr. Amado on 03-22-2023 Glucose Ql (U) 1000 mg/dl Normal [facility] Urine leukocyte esterase det ection by dipstickOrdered By: Dr. Amado on 09-06-2022 Leukocyte esterase Test strip Ql (U) 100 /ul Negative [facility] Urine pHOrdered By: Dr. Shaniqua ospina on 09-06-2022 pH (U) 5.0 [pH] 5.0 - 8.0 [facility] Urine sediment bacteria coun t by microscopy (number/high power field)Ordered By: Dr. Amado on 09-06-2022 Bacteria LM.HPF (Urine sed) [#/Area] 1 /[HPF] None Seen [facility] Urine specific gravity measu rementOrdered By: Dr. Amado on 09-06-2022 Specific gravity (U) [Rel density] 1.015 1.002-1.03 0 [facility] Urobilinogen Auto test strip Ql (U)Ordered By: Dr. Amado on 09-06-2022 Urobilinogen Ql (U) Normal mg/dl Normal [facility] Absolute lymphocyte counton 03-06-2022 Lymphocytes Auto (Unsp spec) [#/Vol] 2.73 10*3/uL 0.83-4.51 [facility] Work Phone: Basophil percentageon 2021 Basophils/100 WBC (Bld) 0.5 % 0-1 [facility] Work Phone: Bilirubin [Mass/Vol] 0.40 mg/dL 0.20-1.00 [facility] Work Phone: Comment on above: For patients on eltr ombopag therapy, use of Dimension [place] TBIL is not recommended. Chloride [Moles/Vol] 106 mmol/L 98-107 [facility] Work Phone: Cholesterol [Mass/Vol] 142 mg/dL <200 [facility] Work Phone: Comment on above: <200 mg/dL Desirable 200-240 mg/dL Borderline >240 mg/dL High Risk Eosinophils/100 WBC (Bld) 5.2 % 0-5 [facility] Work Phone: Glucose [Mass/Vol] 136 mg/dL 74-106 [facility] Work Phone: Comment on above: Fasting Glucose resu lt greater than or equal to 126 mg/dL suggests DIABETES MELLITUS per A.D.A. criteria. Neutrophils (Bld) [#/Vol] 4.3 10*3/uL 2.0-7.7 [facility] Work Phone: Neutrophils/100 WBC (Bld) 55.1 % 47-70 [facility] Work Phone: Potassium [Moles/Vol] 4.3 mmol/L 3.5-5.1 [facility] Work Phone: Protein [Mass/Vol] 6.9 g/dL 6.4-8.2 [facility] Work Phone: Sodium [Moles/Vol] 141 mmol/L 136-145 [facility] Work Phone: Triglyceride [Mass/Vol] 206 mg/dL <199 [facility] Work Phone: Comment on above: The drugs N-Acetylcy steine and Metamizole may falsely depress this assay.Serum Triglycerides Reference Interval Normal <150 mg/dL Borderline high 150 - 199 mg/dL High 200 - 499 mg/dL Very High > or = 500 mg/dL WBC (Bld) [#/Vol] 7.9 10*3/uL 4.4-11.0 [facility] Work Phone: Blood erythrocytes count (nu mber/volume)on 03-06-2022 RBC (Bld) [#/Vol] 3.87 10*6/uL 4.2-5.4 [facility] Work Phone: Blood hemoglobin measurement (mass/volume)on 03-06-2022 Hemoglobin (Bld) [Mass/Vol] 11.3 g/dL 12.0-15.0 [facility] Work Phone: Blood lymphocytes/100 leukoc yteson 03-06-2022 Lymphocytes/100 WBC (Bld) 34.6 % 19-41 [facility] Work Phone: Blood monocytes/100 leukocyt eson 03-06-2022 Monocytes/100 WBC (Bld) 4.3 % 0-10 [facility] Work Phone: Blood platelet mean volumeon 03-06-2022 Platelet mean volume (Bld) [Entitic vol] 11.6 fL 6.2-12.0 [facility] Work Phone: Determination of erythrocyte mean corpuscular volume (MCV)on 03-06-2022 MCV (RBC) [Entitic vol] 93.0 fL 81-99 [facility] Work Phone: Hematocrit Auto (Bld) [Volum e fraction]on 03-06-2022 Hematocrit (Bld) [Volume fraction] 36.0 % 37-47 [facility] Work Phone: Laboratory - Chemistry and C hemistry - challengeon 03-06-2022 ALP [Catalytic activity/Vol] 95 U/L 45-117 [facility] Work Phone: ALT [Catalytic activity/Vol] 24 U/L 13-56 [facility] Work Phone: [phone] CO2 [Moles/Vol] 27.0 mmol/L 21.0-32.0 [facility] Work Phone: Cobalamin (Vitamin B12) [Mass/Vol] 278 pg/mL 211-911 [facility] Work Phone: Globulin (S) [Mass/Vol] 3.6 g/dL 2.2-4.2 [facility] Work Phone: Urea nitrogen/Creatinine [Mass ratio] 11.5 mg/mg 10-20 [facility] Work Phone: Laboratory - Hematology and Cell countson 03-06-2022 Erythrocyte distribution width (RBC) [Entitic vol] 42.6 fL 35.1-43.9 [facility] Work Phone: Erythrocyte distribution width (RBC) [Ratio] 12.6 % 11.6-14.6 [facility] Work Phone: Immature granulocytes/100 WBC (Bld) 0.300 % 0.0-0.9 [facility] Work Phone: Comment on above: IG% - Immature Granu locytes (promyelocytes, myelocytes and metamyelocytes) > 1% indicates that a LEFT SHIFT is Present. MCH (RBC) [Entitic mass] 29.2 pg 27.0-32.0 [facility] Work Phone: Nucleated RBC/100 WBC (Bld) [Ratio] 0 % 0-5 [facility] Work Phone: MCHC Auto (RBC) [Mass/Vol]on 03-06-2022 MCHC (RBC) [Mass/Vol] 31.4 g/dL 32-36 [facility] Work Phone: No Panel Informationon 03-06 [facility]iscellaneous Test [facility]: Comment on above: TEST RESULT LIMITSIn sulin AntibodiesInsulin Antibodies <5.0 uU/mLThis test is also known as insulin autoantibody or IAA.This test was developed and its performance characteristicsdetermined by [facility]. It has not been cleared or approvedby the Food and Drug Administration.Reference Range:<5.0 Negative> or = 5.0 Positive __ TESTING PERFORMED AT [facility]. ORIGINAL REPORT ON FILE IN LAB CONTAINS ADDITIONAL TEST SITE INFORMATION. C-Peptide 1.3 ng/mL 1.1-4.4 [facility] Work Phone: Comment on above: C-Peptide reference interval is for fasting patients. Estimated GFR (MDRD) Amer 50 mL/min >60 [facility] Work Phone: Comment on above: GFR Calc Estimated GFR (MDRD) Non-Af Amer 41 mL/min >60 [facility] Work Phone: Comment on above: Non- GFR Calc Ionized Calcium 5.3 mg/dL 4.5-5.6 [facility] Work Phone: Comment on above: Performed at: [address] [id number] Director: Ahsan Mckeon PhD, Phone: [phone] Thyroid Stimulating Hormone (TSH) 3.01 uIU/mL 0.358-3.74 [facility] Work Phone: Vitamin D 25-Hydroxy 25.2 ng/mL [facility] Work Phone: Comment on above: Vitamin D 25(OH) Sta tus Range Deficiency <20 ng/mL (50nmol/L) Insufficiency 20 - 30 ng/mL (50 - 75 nmol/L) Sufficiency 30 - 100 ng/mL (75 - 250 nmol/L) Toxicity >100 ng/mL (>250 nmol/L) Platelets bldon 03-06-2022 Platelets (Bld) [#/Vol] 255 10*3/uL 150-450 [facility] Work Phone: Serum or plasma albumin norris urement (mass/volume)on 03-06-2022 Albumin [Mass/Vol] 3.3 g/dL 3.2-5.0 [facility] Work Phone: Serum or plasma albumin/glob ulin mass ratioon 03-06-2022 Albumin/Globulin [Mass ratio] 0.9 {ratio} 0.9-2.4 [facility] Work Phone: Serum or plasma calcium norris urement (mass/volume)on 03-06-2022 Calcium [Mass/Vol] 9.0 mg/dL 8.5-10.1 [facility] Work Phone: Serum or plasma cholesterol in HDL measurement (mass/volume)on 03-06-2022 Cholesterol in HDL [Mass/Vol] 39 mg/dL >40 [facility] Work Phone: Comment on above: The drugs N-Acetylcy steine and Metamizole may falsely depress this assay. Reference Range HDL <40 mg/dL Low HDL Cholesterol HDL >or= 60 mg/dL High HDL Cholesterol Serum or plasma cholesterol in VLDL measurement (mass/volume)on 03-06-2022 Cholesterol in VLDL [Mass/Vol] 41 mg/dL 5-40 [facility] Work Phone: Serum or plasma creatinine m easurement (mass/volume)on 03-06-2022 Creatinine [Mass/Vol] 1.39 mg/dL 0.55-1.02 [facility] Work Phone: Comment on above: The validity of the calculated GFR & GFRAA in patients over 70 years has not been determined. Clinical correlation is essential. Serum or plasma low density lipoprotein (LDL) cholesterol measurement (mass/volume)on 03-06-2022 Cholesterol in LDL [Mass/Vol] 62 mg/dL 0-130 [facility] Work Phone: Serum or plasma urea nitroge n measurement (mass/volume)on 03-06-2022 Urea nitrogen [Mass/Vol] 16 mg/dL 7-18 [facility] Work Phone: Thin prep Papanicolaou smear with manual screeningon 03-06-2022 Thin prep Papanicolaou smear with manual screening 13 U/L 15-37 [facility] Work Phone: Thin prep Papanicolaou smear with manual screening 8 5-15 [facility] Work Phone: CNPNon 11-02-2021 [facility] Telephone (ANUSHAMycooN) GLENDY PELAEZ ([id number]) 1960 F Date Time Provider Department 11/02/21 NAZANIN LE During your visit today, we recorded the following information about you: Nazanin Le, COMMUNITY LIVING SPECIALIST 11/02/2021 10:02 AM Signed Sw and nurse called to check and follow up with patient as part of our diabetes program. Patient reports that she loves the freestyle saira. Patient reports that she is now on a sliding insulin scale. Patient reports that she has been having lows 15 units of humalog and tresiba is down to 30 units. Patient notes that before her lows were at night and now the lows are during the day. Her lows have been down to 40. Concerns now that patient has been a type 2 diabetic and now concerns and we are checking to see if she is a type 1 diabetic. Patient notes that Jonna Duff/Dr. Miles has put in for labs to check and see if this is the case. Patient reports that her sugar when she woke up this morning was 325. Patient notes that she is on prednisone and has an upper respiratory infection. Patient reports that she has been out walking her dog and has been enjoying the warmer weather. Allergies As of Date: 11/02/2021 Noted Allergy Reaction ACTOS (PIOGLITAZONE) 01/27/2019 7 - Swelling DEMORAL (MEPERIDINE) 01/27/2019 8 - GI Upset Date Reviewed: 11/01/2021 Reviewed by: Kimberlee Hyde LPN - Fully Assessed Reason for Visit: Diabetes Ed Follow Up [Other] Prescriptions as of 11/02/2021 - amoxicillin-clavulanic acid (AUGMENTIN) 875-125 mg per tablet Take 1 tablet by mouth twice daily for 5 days. - predniSONE (DELTASONE) 20 mg tablet Take 2 tablets by mouth once daily for 4 days. - benzonatate (TESSALON PERLES) 100 mg capsule Take 1 capsule by mouth three times daily as needed for cough for up to 5 days. - flash glucose sensor (FREESTYLE SAIRA 14 DAY SENSOR) kit Use to check blood sugars 4 times daily - insulin degludec (TRESIBA) 200 unit/mL (3 mL) injection Inject 30 Units subcutaneously daily at bedtime. - insulin lispro (HUMALOG KWIKPEN INSULIN) 100 unit/mL Inject 12 Units subcutaneously three times daily before meals plus sliding scale (add 1 units for every 50 mg/dL above 150 mg/dL). Maximum of 40 units/day - insulin needles, DISPOSABLE, (BD INSULIN PEN NEEDLE UF) 31 gauge x 5/16 Use to inject insulin 4 times daily - flash glucose scanning reader (FREESTYLE SAIRA 14 DAY READER) Inject 1 Each subcutaneously as directed. - metFORMIN ER (GLUCOPHAGE XR) 500 mg 24 hr tablet Take 2 tablets by mouth daily with breakfast. - simvastatin (ZOCOR) 20 mg tablet Take 1 tablet by mouth daily at bedtime. - PROAIR HFA 90 mcg/actuation inhaler Inhale 2 Puffs as instructed every 6 hours as needed for wheezing/shortness of breath. - fluticasone-salmeterol (ADVAIR DISKUS) 500-50 mcg/dose dsdv Inhale 1 Puff as instructed twice daily. Rinse and gargle mouth with water after use. - lisinopril (ZESTRIL, PRINIVIL) 5 mg tablet Take 1 tablet by mouth once daily. - acetaminophen (TYLENOL EXTRA STRENGTH) 500 mg tablet Take 2 tablets by mouth every 6 hours as needed for Pain. - [id number]- bor (CALTRATE 600-D PLUS MINERALS) 600 mg calcium- 800 unit-50 mg tab Take 1 tablet by mouth once daily. - calcium Carbonate 300 mg, 750mg, (TUMS) 300 mg (750 mg) chewable tablet Take 1 tablet by mouth once daily as needed. - ferrous sulfate (IRON) 325 mg (65 mg iron) tablet Take 325 mg by mouth daily with breakfast. - cetirizine (ZYRTEC) 10 mg tablet Take 10 mg by mouth once daily. - omeprazole (PRILOSEC) 20 mg capsule Take 20 mg by mouth once daily. - Biotin 10,000 mcg cap Take 1 capsule by mouth once daily. - L. acidophilus/dig enz cmb 5 (PROBIOTIC-DIGESTIVE ENZYMES ORAL) Take 1 tablet by mouth once daily. - Cranberry Extract 500 mg cap Take 1 capsule by mouth once daily. Problem List As Of Date 11/02/2021 Noted Resolved Type 2 diabetes mellitus (HCC) [E11.9] Hyperlipidemia [E78.5] Asthma [J45.909] CKD (chronic kidney disease) stage 3, GFR 30-59* Encounter Status:Closed by NAZANIN LE on 11/02/21 [facility] CNOVon 11-01-2021 CNOV Office Visit (UCWSTR ) GLENDY PELAEZ ([id number]) 1960 F Date Time Provider Department 11/01/21 8:30 AM [facility]DRO [facility] During your visit today, we recorded the following information about you: Temperature Pulse Respiration Blood pressure 97.9 degrees 97/minute 18/minute 138/78 Weight 71.3 kg Leandro Louie APRN.ACID BATH MIXER 11/01/2021 9:04 AM Addendum CC: Patient presents with: Cough: cough, sinus and CELAYA x 8 days HPI: Glendy Pelaez is a 61 year old female who presents to the office with complaint of cough, nonproductive, wheezing and sinus symptoms for 8 days. Symptoms are worsening Associated symptoms includes headache. Denies fever, nausea, vomiting and diarrhea. Treatments tried include nothing so far. with no relief of symptoms. Sick contacts: unknown. History of asthma, frequent episodes of bronchitis, chronic bronchitis, bronchiectasis or COPD: No Smoker: No Seasonal/environmental allergies: No The ROS is otherwise negative. The patient's pmh, medications, allergies, and past visits are reviewed. PHYSICAL EXAM: BP 138/78 Pulse 97 Temp 36.6 ?C (97.9 ?F) (Tympanic) Resp 18 Wt 71.3 kg (157 lb 3.2 oz) SpO2 98% BMI 27.85 kg/m? General appearance: alert, cooperative, pleasant, in no acute distress Head: Normocephalic Eyes: EOM's intact, conjunctiva pink and moist, no icterus, sclera white, non-injected Ears: Right ear: External ear/canal- Normal, TM - clear with good landmarks. Left ear: External ear/canal- Normal, TM - clear with good landmarks Oropharynx:moist without lesions, No erythema, exudates or tonsillar hypertrophy. Heart: Negative. RRR without obvious murmur, gallop, or rubs. No ectopy. Lungs: wheezing throughout bilaterally. PAST MEDICAL HISTORY Diagnosis Date - Asthma - MATILDA III (cervical intraepithelial neoplasia III) - CKD (chronic kidney disease) stage 3, GFR 30-59 ml/min (HCC) - Hyperlipidemia - SCC (squamous cell carcinoma) - Type 2 diabetes mellitus (HCC) PAST SURGICAL HISTORY Procedure Laterality Date - PAST SURGICAL HISTORY OF N/A 1983 [place] ALLERGIES Actos [Pioglitazone] and Demoral [Meperidine] MEDICATIONS flash glucose sensor (FREESTYLE SAIRA 14 DAY SENSOR) kit Use to check blood sugars 4 times daily insulin degludec (TRESIBA) 200 unit/mL (3 mL) injection Inject 30 Units subcutaneously daily at bedtime. insulin lispro (HUMALOG KWIKPEN INSULIN) 100 unit/mL Inject 12 Units subcutaneously three times daily before meals plus sliding scale (add 1 units for every 50 mg/dL above 150 mg/dL). Maximum of 40 units/day insulin needles, DISPOSABLE, (BD INSULIN PEN NEEDLE UF) 31 gauge x 5/16 Use to inject insulin 4 times daily flash glucose scanning reader (FREESTYLE SAIRA 14 DAY READER) Inject 1 Each subcutaneously as directed. metFORMIN ER (GLUCOPHAGE XR) 500 mg 24 hr tablet Take 2 tablets by mouth daily with breakfast. simvastatin (ZOCOR) 20 mg tablet Take 1 tablet by mouth daily at bedtime. PROAIR HFA 90 mcg/actuation inhaler Inhale 2 Puffs as instructed every 6 hours as needed for wheezing/shortness of breath. fluticasone-salmeterol (ADVAIR DISKUS) 500-50 mcg/dose dsdv Inhale 1 Puff as instructed twice daily. Rinse and gargle mouth with water after use. lisinopril (ZESTRIL, PRINIVIL) 5 mg tablet Take 1 tablet by mouth once daily. acetaminophen (TYLENOL EXTRA STRENGTH) 500 mg tablet Take 2 tablets by mouth every 6 hours as needed for Pain. [id number]- bor (CALTRATE 600-D PLUS MINERALS) 600 mg calcium- 800 unit-50 mg tab Take 1 tablet by mouth once daily. calcium Carbonate 300 mg, 750mg, (TUMS) 300 mg (750 mg) chewable tablet Take 1 tablet by mouth once daily as needed. ferrous sulfate (IRON) 325 mg (65 mg iron) tablet Take 325 mg by mouth daily with breakfast. cetirizine (ZYRTEC) 10 mg tablet Take 10 mg by mouth once daily. omeprazole (PRILOSEC) 20 mg capsule Take 20 mg by mouth once daily. Biotin 10,000 mcg cap Take 1 capsule by mouth once daily. L. acidophilus/dig enz cmb 5 (PROBIOTIC-DIGESTIVE ENZYMES ORAL) Take 1 tablet by mouth once daily. Cranberry Extract 500 mg cap Take 1 capsule by mouth once daily. amoxicillin-clavulanic acid (AUGMENTIN) 875-125 mg per tablet Take 1 tablet by mouth twice daily for 5 days. predniSONE (DELTASONE) 20 mg tablet Take 2 tablets by mouth once daily for 4 days. benzonatate (TESSALON PERLES) 100 mg capsule Take 1 capsule by mouth three times daily as needed for cough for up to 5 days. FAMILY HISTORY Problem Relation Age of Onset - Diabetes Mother - Diabetes Father - Diabetes Sister - Diabetes Brother - Heart Attack Maternal Grandmother - Heart Attack Maternal Grandfather - Dementia Paternal Grandmother - Parkinson?s Disease Paternal Grandfather - Diabetes Sister Social History Tobacco Use - Smoking status: Never Smoker - (more content not included)... [facility] 09-15-2021 [facility] Telephone (PHMEWO) GLENDY PELAEZ ([id number]) 1960 F Date Time Provider Department 09/15/21 RABIA NOLASCO MEWO During your visit today, we recorded the following information about you: Rabia Nolasco [facility] 09/15/2021 4:02 PM Signed Patient report she is adherent to regimen. She is prescribed metformin, Tresiba and Humalog. Has large fluctuations oin blood sugars and often has lows with small insulin adjustments. Can consider TYRON AB and c-peptide testing to clarify DMT1 vs DMT2 and assess if patient making endogenous insulin to better determine future medication changes. Pending for PCP consideration. Thanks, Rabia Nolasco, PharmD, BCACP Primary Care Clinical Pharmacist [facility] Eloy Miles MD 09/19/2021 5:15 PM Signed Labs ordered Eloy Miles MD Allergies As of Date: 09/15/2021 Noted Allergy Reaction ACTOS (PIOGLITAZONE) 01/27/2019 7 - Swelling DEMORAL (MEPERIDINE) 01/27/2019 8 - GI Upset Date Reviewed: 07/25/2021 Reviewed by: Rabia Nolasco [facility] - Fully Assessed Reason for Visit: Diabetes [34] Primary Visit Diagnosis:Type 2 diabetes mellitus with diabetic polyneuropathy, with long-term current use of insulin (HCC) [E11.42, Z79.4] Order(s):C-PEPTIDE BLD [SQCPEPT] Order #: [id number] FUTURE GLUTAMIC AC DECARBOXYLASE AB [SQGADCAB] Order #: [id number] FUTURE Prescriptions as of 09/20/2021 - insulin degludec (TRESIBA) 200 unit/mL (3 mL) injection Inject 40 Units subcutaneously daily at bedtime. - insulin needles, DISPOSABLE, (BD INSULIN PEN NEEDLE UF) 31 gauge x 5/16 Use to inject insulin 4 times daily - insulin lispro (HUMALOG KWIKPEN INSULIN) 100 unit/mL Inject 12 Units subcutaneously three times daily before meals plus sliding scale (add 1 units for every 50 mg/dL above 150 mg/dL). Maximum of 40 units/day - flash glucose scanning reader (FREESTYLE SAIRA 14 DAY READER) Inject 1 Each subcutaneously as directed. - flash glucose sensor (FREESTYLE SAIRA 14 DAY SENSOR) kit Use to check blood sugars 4 times daily - metFORMIN ER (GLUCOPHAGE XR) 500 mg 24 hr tablet Take 2 tablets by mouth daily with breakfast. - simvastatin (ZOCOR) 20 mg tablet Take 1 tablet by mouth daily at bedtime. - PROAIR HFA 90 mcg/actuation inhaler Inhale 2 Puffs as instructed every 6 hours as needed for wheezing/shortness of breath. - fluticasone-salmeterol (ADVAIR DISKUS) 500-50 mcg/dose dsdv Inhale 1 Puff as instructed twice daily. Rinse and gargle mouth with water after use. - lisinopril (ZESTRIL, PRINIVIL) 5 mg tablet Take 1 tablet by mouth once daily. - acetaminophen (TYLENOL EXTRA STRENGTH) 500 mg tablet Take 2 tablets by mouth every 6 hours as needed for Pain. - [id number]- bor (CALTRATE 600-D PLUS MINERALS) 600 mg calcium- 800 unit-50 mg tab Take 1 tablet by mouth once daily. - calcium Carbonate 300 mg, 750mg, (TUMS) 300 mg (750 mg) chewable tablet Take 1 tablet by mouth once daily as needed. - ferrous sulfate (IRON) 325 mg (65 mg iron) tablet Take 325 mg by mouth daily with breakfast. - cetirizine (ZYRTEC) 10 mg tablet Take 10 mg by mouth once daily. - omeprazole (PRILOSEC) 20 mg capsule Take 20 mg by mouth once daily. - Biotin 10,000 mcg cap Take 1 capsule by mouth once daily. - L. acidophilus/dig enz cmb 5 (PROBIOTIC-DIGESTIVE ENZYMES ORAL) Take 1 tablet by mouth once daily. - Cranberry Extract 500 mg cap Take 1 capsule by mouth once daily. Problem List As Of Date 09/15/2021 Noted Resolved Type 2 diabetes mellitus (HCC) [E11.9] Hyperlipidemia [E78.5] Asthma [J45.909] CKD (chronic kidney disease) stage 3, GFR 30-59* Encounter Status:Closed by RABIA NOLASCO on 09/20/21 [facility] CNOVon 07-12-2021 CNOV Office Visit (FAMPWS ) GLENDY PELAEZ ([id number]) 1960 F Date Time Provider Department 07/12/21 10:40 AM ELOY MILESPWS During your visit today, we recorded the following information about you: Pulse Respiration Blood pressure Weight 84/minute 16/minute 142/80 71 kg Eloy Miles MD 07/12/2021 3:05 PM Signed Chief Complaint Patient presents with: Recheck HPI Glendy Pelaez is a 61 year old female who presents here today for a diabetic follow up Pt here today for a DM follow up. Notes that her is leaving his job at the [employer] and will be starting his new job at the [employer]. During this time she will be without insurance for 1 month. DM - Recently enrolled in DM Program, spoke with BRUCE and has a VV appt coming up with Rabia this afternoon. Had DM Eye Exam late in 2020, will have records faxed to office. Pt checking sugars TID, FBS ranging from 70-100. On current regimen of Metformin 500 mg 2 tabs po once daily, Humalog 10 units TID (since November) and Tresiba 52 units once daily (since November). Reports hypoglycemic episodes few times per week, symptoms occurring at 70. Denies any neuropathy symptoms. Has discussed reducing Tresiba when increasing Humalog, but she is unable to do this as her sugars are not controlled. Feels she is better controlled on her current regimen. CKD - Does take Lisinopril 5 mg daily for kidney protection. Denies any previous BP issues or checking her BP at home.States this is high today due to using ProAir inhaler daily, multiple times per day. Asthma - Requesting additional refill of Prednisone for a cough. She notes that this does help her asthma symptoms of congestion, tightness and cough. Using her rescue inhaler more (6 x today) in addition to Advair twice daily. Pt states that her symptoms are triggered when going outside. She has not cleared up since having Covid; does not wheeze but chest feels tight. Lipids - On current regimen of Simvastatin 20 mg once daily, denies any issues with medication. HM - Declines Flu shot. Declines Depression symptoms. Would like to postpone IFOBT until next visit when insurance is back in place Past medical history, appointments, medications, allergies reviewed. Previous Medical History PAST MEDICAL HISTORY Diagnosis Date - Asthma - MATILDA III (cervical intraepithelial neoplasia III) - CKD (chronic kidney disease) stage 3, GFR 30-59 ml/min (HCC) - Hyperlipidemia - SCC (squamous cell carcinoma) - Type 2 diabetes mellitus (HCC) Previous Surgical History PAST SURGICAL HISTORY Procedure Laterality Date - PAST SURGICAL HISTORY OF N/A [place] Family History FAMILY HISTORY Problem Relation Age of Onset - Diabetes Mother - Diabetes Father - Diabetes Sister - Diabetes Brother - Heart Attack Maternal Grandmother - Heart Attack Maternal Grandfather - Dementia Paternal Grandmother - Parkinson?s Disease Paternal Grandfather - Diabetes Sister Patient Allergies ALLERGIES Allergen Reactions - Actos [Pioglitazone] Swelling - Demoral [Meperidine] GI Upset Current Medications Current Outpatient Medications on File Prior to Visit Medication Sig - predniSONE (DELTASONE) 20 mg tablet Take 2 tablets by mouth once daily. - flash glucose scanning reader (FREESTYLE SAIRA 14 DAY READER) Inject 1 Each subcutaneously as directed. - flash glucose sensor (FREESTYLE SAIRA 14 DAY SENSOR) kit Use to check blood sugars 4 times daily - insulin lispro (HUMALOG KWIKPEN INSULIN) 100 unit/mL Inject 8 Units subcutaneously three times daily before meals plus sliding scale (add 1 units for every 50 mg/dL above 150 mg/dL). Maximum of 40 units/day - metFORMIN ER (GLUCOPHAGE XR) 500 mg 24 hr tablet Take 2 tablets by mouth daily with breakfast. - insulin degludec (TRESIBA) 200 unit/mL (3 mL) injection Inject 40 Units subcutaneously daily at bedtime. - simvastatin (ZOCOR) 20 mg tablet Take 1 tablet by mouth daily at bedtime. - PROAIR HFA 90 mcg/actuation inhaler Inhale 2 Puffs as instructed every 6 hours as needed for wheezing/shortness of breath. - fluticasone-salmeterol (ADVAIR DISKUS) 500-50 mcg/dose dsdv Inhale 1 Puff as instructed twice daily. Rinse and gargle mouth with water after use. - lisinopril (ZESTRIL, PRINIVIL) 5 mg tablet Take 1 tablet by mouth once daily. - insulin needles, DISPOSABLE, (BD INSULIN PEN NEEDLE UF) 31 gauge x 5/16 Use to inject insulin 4 times daily - acetaminophen (TYLENOL EXTRA STRENGTH) 500 mg tablet Take 2 tablets by mouth every 6 hours as needed for Pain. - [id number]-jzhj- bor (CALTRATE 600-D PLUS MINERALS) 600 mg calcium- 800 unit-50 mg tab Take 1 tablet by mouth once daily. - calcium Carbonate 300 mg, 750mg, (TUMS) 300 mg (750 mg) chewable tablet Take 1 tablet by mouth once daily as needed. - ferrous sulfate (IRON) 325 mg (65 mg iron) (more content not included)... Normal [facility] CNSWon 07-06-2021 CNSW Social Work (ANUSHAWST) GLENDY PELAEZ ([id number]) 1960 F Date Time Provider Department 07/06/21 REY NAZANIN ESTELLA During your visit today, we recorded the following information about you: Nazanin Rey, COMMUNITY LIVING SPECIALIST 07/07/2021 4:37 PM Signed Patient reports that she was diagnosed 20 years ago with diabetes. Multiple family members have diabetes ie mother, step father, siblings Patient reports that she likes to eat 1 package of pop tarts every morning. Patient drinks coffee with her pop tarts. For lunch she likes to eat uzbek yogurt, peanut butter and cheese crackers, apples, carrots. Patient reports that she noticed that when she eats raisins her BS goes up greatly. Patient reports that she does not drink pop. Loves candy Patient reports that she feels like her downfall is that when she has a meal she has to follow that with something sweet. Sw and patient discussed possibility of meeting with dietitian and patient [facility] then see if she feels dietitian meeting would be beneficial. Discussed exercise and patient reports that she does not exercise in the winter. In the summer, she walks at the campgrounds that they camp at for the summer. Biggest concerns for patient is in regards to high A1C and feels I have been stuck in the same place for the last 20 years regarding my diabetes. I don't understand how my mom and cousin have a low A1C and they eat cakes, candy, all the time. Patient reports that she is also concerned about how some diabetes medications can increase weight gain. Patient notes that she has been trying to watch her portions. Goals: Lower A1C score Lose 20 pounds Patient discussed that she could start to walk again at the [employer] like she has in the past. No concerns noted regarding cost of medications, food, housing,transportation. Patient reports that she is looking forward to meeting with Stanislav-Diabetes Ed and Rabia-Pharm. Patient reports that she likes to correspond via [employer]. Allergies As of Date: 07/06/2021 Noted Allergy Reaction ACTOS (PIOGLITAZONE) 01/27/2019 7 - Swelling DEMORAL (MEPERIDINE) 01/27/2019 8 - GI Upset Date Reviewed: 06/24/2021 Reviewed by: Camille Florez Ma - Fully Assessed Prescriptions as of 07/07/2021 - predniSONE (DELTASONE) 20 mg tablet Take 2 tablets by mouth once daily. - flash glucose scanning reader (FREESTYLE SAIRA 14 DAY READER) Inject 1 Each subcutaneously as directed. - flash glucose sensor (FREESTYLE SAIRA 14 DAY SENSOR) kit Use to check blood sugars 4 times daily - insulin lispro (HUMALOG KWIKPEN INSULIN) 100 unit/mL Inject 8 Units subcutaneously three times daily before meals plus sliding scale (add 1 units for every 50 mg/dL above 150 mg/dL). Maximum of 40 units/day - metFORMIN ER (GLUCOPHAGE XR) 500 mg 24 hr tablet Take 2 tablets by mouth daily with breakfast. - insulin degludec (TRESIBA) 200 unit/mL (3 mL) injection Inject 40 Units subcutaneously daily at bedtime. - simvastatin (ZOCOR) 20 mg tablet Take 1 tablet by mouth daily at bedtime. - PROAIR HFA 90 mcg/actuation inhaler Inhale 2 Puffs as instructed every 6 hours as needed for wheezing/shortness of breath. - fluticasone-salmeterol (ADVAIR DISKUS) 500-50 mcg/dose dsdv Inhale 1 Puff as instructed twice daily. Rinse and gargle mouth with water after use. - lisinopril (ZESTRIL, PRINIVIL) 5 mg tablet Take 1 tablet by mouth once daily. - insulin needles, DISPOSABLE, (BD INSULIN PEN NEEDLE UF) 31 gauge x 5/16 Use to inject insulin 4 times daily - acetaminophen (TYLENOL EXTRA STRENGTH) 500 mg tablet Take 2 tablets by mouth every 6 hours as needed for Pain. - [id number]-[id number]- bor (CALTRATE 600-D PLUS MINERALS) 600 mg calcium- 800 unit-50 mg tab Take 1 tablet by mouth once daily. - calcium Carbonate 300 mg, 750mg, (TUMS) 300 mg (750 mg) chewable tablet Take 1 tablet by mouth once daily as needed. - ferrous sulfate (IRON) 325 mg (65 mg iron) tablet Take 325 mg by mouth daily with breakfast. - cetirizine (ZYRTEC) 10 mg tablet Take 10 mg by mouth once daily. - omeprazole (PRILOSEC) 20 mg capsule Take 20 mg by mouth once daily. - Biotin 10,000 mcg cap Take 1 capsule by mouth once daily. - L. acidophilus/dig enz cmb 5 (PROBIOTIC-DIGESTIVE ENZYMES ORAL) Take 1 tablet by mouth once daily. - Cranberry Extract 500 mg cap Take 1 capsule by mouth once daily. Problem List As Of Date 07/06/2021 Noted Resolved Type 2 diabetes mellitus (HCC) [E11.9] Hyperlipidemia [E78.5] Asthma [J45.909] CKD (chronic kidney disease) stage 3, GFR 30-59* Encounter Status:Closed by NAZANIN LE on 07/07/21 Normal [facility] Comp Metabolic Panelon 07-06 Albumin [Mass/Vol] 4.2 g/dL Normal 3.9-4.9 [facility] Comment on above: Performed By: #### Brandy HARRISON CMP ####[facility] [place], [place] [phone] ALP [Catalytic activity/Vol] 81 U/L Normal 34-123 [facility] Comment on above: Performed By: #### Brandy HARRISON, CMP ####[facility] [place], [place] [phone] ALT [Catalytic activity/Vol] 23 U/L Normal 7-38 [facility] Comment on above: Performed By: #### Brandy HARRISON, CMP ####[facility] [place], [place] [phone] Anion gap [Moles/Vol] 7 mmol/L Low 9-18 [facility] Comment on above: Performed By: #### Brandy HARRISON, CMP ####[place] [id number] [place] [phone] AST [Catalytic activity/Vol] 18 U/L Normal 13-35 [facility] Comment on above: Performed By: #### H BAJayne, CMP ####[address] [phone] Bilirubin [Mass/Vol] 0.3 mg/dL Normal 0.2-1.3 [facility] Comment on above: Performed By: #### H BAJayne, CMP ####[place] [phone] Calcium [Mass/Vol] 9.9 mg/dL Normal 8.5-10.2 [facility] Comment on above: Performed By: #### H BA1C, CMP ####[place] [phone] Chloride [Moles/Vol] 104 mmol/L Normal 97-105 [facility] Comment on above: Performed By: #### H BAJayne, CMP ####[place] [phone] CO2 [Moles/Vol] 27 mmol/L Normal 22-30 [facility] Comment on above: Performed By: #### H BA1C, CMP ####[place] [address] [place] [phone] Creatinine [Mass/Vol] 1.14 mg/dL High 0.58-0.96 [facility] Comment on above: Performed By: #### H BA1C, CMP ####[place] [phone] eGFR- Amer. 59 Normal [facility] Comment on above: Performed By: #### H BA1C, CMP ####[place] [address] [place], [place] [phone] eGFR-All Other Races 49 . Normal [facility] Comment on above: Result Comment: eGFR (Estimated GFR) Units of measure: mL/min/1.73 meters squared eGFR is derived from the reexpressed MDRD Study equation using the following parameters: serum creatinine, age, gender and race. The creatinine assay has been calibrated to be traceable to IDMS. An eGFR <60 mL/min/1.73m2 for >3 months is consistent with chronic kidney disease. Refer to KDOQI guidelines for clinical interpretation. In patients with unstable renal function, e.g. those with acute kidney injury, the eGFR may not accurately reflect actual GFR. Note: On 08/13/2021, the eGFR calculation will be updated to the NKF-ASN Task Force recommended 2020 CKD-EPI creatinine equation which does not include a race variable. For more information or to access a 2020 CKD-EPI calculator, visit the National Kidney Foundation website at kidney.org/professionals/kdoqi/gfr_calculator. Performed By: #### H CHRISTY, CMP ####[facility] [place], [place] [phone] Glucose [Mass/Vol] 111 mg/dL High 74-99 [facility] Comment on above: Result Comment: The [place] Diabetes Association (ADA) provides guidance for cutoff values for fasting glucose and random glucose. The ADA defines fasting as no caloric intake for at least 8 hours. Fasting plasma glucose results between 100 to 125 mg/dL indicate increased risk for diabetes (prediabetes). Fasting plasma glucose results greater than or equal to 126 mg/dL meet the criteria for diagnosis of diabetes. In the absence of unequivocal hyperglycemia, results should be confirmed by repeat testing. In a patient with classic symptoms of hyperglycemia or hyperglycemic crisis, random plasma glucose results greater than or equal to 200 mg/dL meet the criteria for diagnosis of diabetes. Reference: Standards of Medical Care in Diabetes 2016, [place] Diabetes Association. Diabetes Care. 2016.39(Suppl 1). Performed By: #### H ROLANDA1C, CMP ####[facility] [address] [place], [place] [phone] Potassium [Moles/Vol] 4.9 mmol/L Normal 3.7-5.1 [facility] Comment on above: Performed By: #### H CHRISTY, CMP ####[facility] [place], [place] [phone] Protein [Mass/Vol] 6.7 g/dL Normal 6.3-8.0 [facility] Comment on above: Performed By: #### H BA1C, CMP ####[address] [phone] Sodium [Moles/Vol] 138 mmol/L Normal 136-144 [facility] Comment on above: Performed By: #### H BA1C, CMP ####[address] [phone] Urea nitrogen [Mass/Vol] 15 mg/dL Normal 7-21 [facility] Comment on above: Performed By: #### H BA1C, CMP ####[address] [phone] Hemoglobin A1con 07-06-2021 Glucose [Mass/Vol] 229 mg/dL Normal [facility] Comment on above: Result Comment: eAG: (Estimated average glucose) is a calculated value from HgbA1c and is career services representative of the average blood glucose level in the last 2-3 month period. Performed By: #### H BA1C, CMP ####[address] [phone] HbA1c (Bld) [Mass fraction] 9.6 % High 4.3-5.6 [facility] Comment on above: Result Comment: [place] Diabetes Association guidelines indicate that patients with HgbA1c in the range 5.7-6.4% are at increased risk for development of diabetes, and intervention by lifestyle modification may be beneficial. HgbA1c greater or equal to 6.5% is considered diagnostic of diabetes. Performed By: #### H BA1C, CMP ####[address] [phone] CNPNon 06-20-2021 CNPN Telephone (PHARMN) ANTONIOGLENDY Robles ([id number]) 1960 F Date Time Provider Department 06/20/21 SEAN GARCIA During your visit today, we recorded the following information about you: IDRIS Barber 06/20/2021 10:51 AM Signed Telephoned the patient to schedule a new pharmacy med/review appt. Left a message. Due to the [facility] office shortage and high primary consult referral volume, one called was placed. If the patient returns the call, an appt with be scheduled. Encounter routed to the clinical pharmacist. Rabia Nolasco RPh 06/23/2021 3:05 PM Signed [facility] message to pt with instructions to schedule. Rabia Nolasco, PharmD, BCACP Primary Care Clinical Pharmacist [facility] Allergies As of Date: 06/20/2021 Noted Allergy Reaction ACTOS (PIOGLITAZONE) 01/27/2019 7 - Swelling DEMORAL (MEPERIDINE) 01/27/2019 8 - GI Upset Date Reviewed: 02/16/2021 Reviewed by: Nubia Scales Ma - Fully Assessed Reason for Visit: New Pharmacy Med-Review [Other] Prescriptions as of 06/23/2021 - flash glucose scanning reader (FREESTYLE SAIRA 14 DAY READER) Inject 1 Each subcutaneously as directed. - flash glucose sensor (FREESTYLE SAIRA 14 DAY SENSOR) kit Use to check blood sugars 4 times daily - insulin lispro (HUMALOG KWIKPEN INSULIN) 100 unit/mL Inject 8 Units subcutaneously three times daily before meals plus sliding scale (add 1 units for every 50 mg/dL above 150 mg/dL). Maximum of 40 units/day - metFORMIN ER (GLUCOPHAGE XR) 500 mg 24 hr tablet Take 2 tablets by mouth daily with breakfast. - insulin degludec (TRESIBA) 200 unit/mL (3 mL) injection Inject 40 Units subcutaneously daily at bedtime. - simvastatin (ZOCOR) 20 mg tablet Take 1 tablet by mouth daily at bedtime. - PROAIR HFA 90 mcg/actuation inhaler Inhale 2 Puffs as instructed every 6 hours as needed for wheezing/shortness of breath. - fluticasone-salmeterol (ADVAIR DISKUS) 500-50 mcg/dose dsdv Inhale 1 Puff as instructed twice daily. Rinse and gargle mouth with water after use. - lisinopril (ZESTRIL, PRINIVIL) 5 mg tablet Take 1 tablet by mouth once daily. - insulin needles, DISPOSABLE, (BD INSULIN PEN NEEDLE UF) 31 gauge x 5/16 Use to inject insulin 4 times daily - acetaminophen (TYLENOL EXTRA STRENGTH) 500 mg tablet Take 2 tablets by mouth every 6 hours as needed for Pain. - iip-K4-[id number]-rydc-oxq-agfq- bor (CALTRATE 600-D PLUS MINERALS) 600 mg calcium- 800 unit-50 mg tab Take 1 tablet by mouth once daily. - calcium Carbonate 300 mg, 750mg, (TUMS) 300 mg (750 mg) chewable tablet Take 1 tablet by mouth once daily as needed. - ferrous sulfate (IRON) 325 mg (65 mg iron) tablet Take 325 mg by mouth daily with breakfast. - cetirizine (ZYRTEC) 10 mg tablet Take 10 mg by mouth once daily. - omeprazole (PRILOSEC) 20 mg capsule Take 20 mg by mouth once daily. - Biotin 10,000 mcg cap Take 1 capsule by mouth once daily. - L. acidophilus/dig enz cmb 5 (PROBIOTIC-DIGESTIVE ENZYMES ORAL) Take 1 tablet by mouth once daily. - Cranberry Extract 500 mg cap Take 1 capsule by mouth once daily. Problem List As Of Date 06/20/2021 Noted Resolved Type 2 diabetes mellitus (HCC) [E11.9] Hyperlipidemia [E78.5] Asthma [J45.909] CKD (chronic kidney disease) stage 3, GFR 30-59* Encounter Status:Closed by RABIA NOLASCO on 06/23/21 [facility] 06-15-2021 MISTYN Telephone (FAMPWS) GLENDY PELAEZ ([id number]) 1960 F Date Time Provider Department 06/15/21 ELOY MILES During your visit today, we recorded the following information about you: Dahiana Pritchett RN 06/15/2021 11:07 AM Signed Spoke to patient regarding joining the Structured DM program. Pt willing and agreeable to join program. Initial nurse/ SW visit scheduled for . Please place order set for Structured DM program. Thank you! BRADY Thomson MD 06/16/2021 11:23 AM Signed Order filed Eloy Miles MD Allergies As of Date: 06/15/2021 Noted Allergy Reaction ACTOS (PIOGLITAZONE) 01/27/2019 7 - Swelling DEMORAL (MEPERIDINE) 01/27/2019 8 - GI Upset Date Reviewed: 02/16/2021 Reviewed by: Nubia Scales Ma - Fully Assessed Reason for Visit: Diabetes [34] Primary Visit Diagnosis:Type 2 diabetes mellitus without complication, unspecified whether long term care pharmacist insulin use (HCC) [E11.9] Order(s):CONSULT TO INT NURSE DIABETES [0928924] Order #: [id number]: 1 APPEALS AND GENERALIST CLERK [CONSULT TO SOCIAL WORK] [] Order #: [id number]: 1 FUTURE CONSULT TO DIABETES EDUCATION [[id number]] Order #: [id number]: 1 FUTURE CONSULT TO PHARMACY [[id number]] Order #: [id number]: 1 REFER BACK TO PCP FOR DM TYPE 2 MAINT [[id number]] Order #: [id number]: 1 FUTURE Prescriptions as of 06/21/2021 - flash glucose scanning reader (FREESTYLE SAIRA 14 DAY READER) Inject 1 Each subcutaneously as directed. - flash glucose sensor (FREESTYLE SAIRA 14 DAY SENSOR) kit Use to check blood sugars 4 times daily - insulin lispro (HUMALOG KWIKPEN INSULIN) 100 unit/mL Inject 8 Units subcutaneously three times daily before meals plus sliding scale (add 1 units for every 50 mg/dL above 150 mg/dL). Maximum of 40 units/day - metFORMIN ER (GLUCOPHAGE XR) 500 mg 24 hr tablet Take 2 tablets by mouth daily with breakfast. - insulin degludec (TRESIBA) 200 unit/mL (3 mL) injection Inject 40 Units subcutaneously daily at bedtime. - simvastatin (ZOCOR) 20 mg tablet Take 1 tablet by mouth daily at bedtime. - PROAIR HFA 90 mcg/actuation inhaler Inhale 2 Puffs as instructed every 6 hours as needed for wheezing/shortness of breath. - fluticasone-salmeterol (ADVAIR DISKUS) 500-50 mcg/dose dsdv Inhale 1 Puff as instructed twice daily. Rinse and gargle mouth with water after use. - lisinopril (ZESTRIL, PRINIVIL) 5 mg tablet Take 1 tablet by mouth once daily. - insulin needles, DISPOSABLE, (BD INSULIN PEN NEEDLE UF) 31 gauge x 5/16 Use to inject insulin 4 times daily - acetaminophen (TYLENOL EXTRA STRENGTH) 500 mg tablet Take 2 tablets by mouth every 6 hours as needed for Pain. - pej-D2-[id number]-qbst-vfe-eyix- bor (CALTRATE 600-D PLUS MINERALS) 600 mg calcium- 800 unit-50 mg tab Take 1 tablet by mouth once daily. - calcium Carbonate 300 mg, 750mg, (TUMS) 300 mg (750 mg) chewable tablet Take 1 tablet by mouth once daily as needed. - ferrous sulfate (IRON) 325 mg (65 mg iron) tablet Take 325 mg by mouth daily with breakfast. - cetirizine (ZYRTEC) 10 mg tablet Take 10 mg by mouth once daily. - omeprazole (PRILOSEC) 20 mg capsule Take 20 mg by mouth once daily. - Biotin 10,000 mcg cap Take 1 capsule by mouth once daily. - L. acidophilus/dig enz cmb 5 (PROBIOTIC-DIGESTIVE ENZYMES ORAL) Take 1 tablet by mouth once daily. - Cranberry Extract 500 mg cap Take 1 capsule by mouth once daily. Problem List As Of Date 06/15/2021 Noted Resolved Type 2 diabetes mellitus (HCC) [E11.9] Hyperlipidemia [E78.5] Asthma [J45.909] CKD (chronic kidney disease) stage 3, GFR 30-59* Encounter Status:Closed by DAHIANA PRITCHETT on 06/21/21 [facility] 06-02-2021 CNPN Telephone (RDXWS) TRAVGLENDY Galicia ([id number]) 1960 F Date Time Provider Department 06/02/21 ELOY MILES RDXWS During your visit today, we recorded the following information about you: Shruthi Philippe, [employer]ifto Tech 06/02/2021 7:41 AM Addendum Please file orders for left diagnostic mammogram and left breast ultrasound. Call back from screening. Thanks. Please disregard.....compared to priors and no additional imaging needed. Dwight Genao APRN.MISTY 06/03/2021 8:20 AM Signed Orders filed. Dwight Genao APRN.ACID BATH MIXER Allergies As of Date: 06/02/2021 Noted Allergy Reaction ACTOS (PIOGLITAZONE) 01/27/2019 7 - Swelling DEMORAL (MEPERIDINE) 01/27/2019 8 - GI Upset Date Reviewed: 02/16/2021 Reviewed by: Nubia Scales Ma - Fully Assessed Reason for Visit: Orders [681] Primary Visit Diagnosis:Abnormal mammogram [R92.8] Order(s):US BREAST LTD LT [[id number]] Order #: [id number] FUTURE SWAPNIL DIAGNOSTIC LT [[id number]] Order #: [id number] FUTURE Prescriptions as of 06/03/2021 - flash glucose scanning reader (FREESTYLE SAIRA 14 DAY READER) Inject 1 Each subcutaneously as directed. - flash glucose sensor (FREESTYLE SAIRA 14 DAY SENSOR) kit Use to check blood sugars 4 times daily - insulin lispro (HUMALOG KWIKPEN INSULIN) 100 unit/mL Inject 8 Units subcutaneously three times daily before meals plus sliding scale (add 1 units for every 50 mg/dL above 150 mg/dL). Maximum of 40 units/day - metFORMIN ER (GLUCOPHAGE XR) 500 mg 24 hr tablet Take 2 tablets by mouth daily with breakfast. - insulin degludec (TRESIBA) 200 unit/mL (3 mL) injection Inject 40 Units subcutaneously daily at bedtime. - simvastatin (ZOCOR) 20 mg tablet Take 1 tablet by mouth daily at bedtime. - PROAIR HFA 90 mcg/actuation inhaler Inhale 2 Puffs as instructed every 6 hours as needed for wheezing/shortness of breath. - fluticasone-salmeterol (ADVAIR DISKUS) 500-50 mcg/dose dsdv Inhale 1 Puff as instructed twice daily. Rinse and gargle mouth with water after use. - lisinopril (ZESTRIL, PRINIVIL) 5 mg tablet Take 1 tablet by mouth once daily. - insulin needles, DISPOSABLE, (BD INSULIN PEN NEEDLE UF) 31 gauge x 16 Use to inject insulin 4 times daily - acetaminophen (TYLENOL EXTRA STRENGTH) 500 mg tablet Take 2 tablets by mouth every 6 hours as needed for Pain. - ank-F8-[id number]-ykcs-flf-bhxv- bor (CALTRATE 600-D PLUS MINERALS) 600 mg calcium- 800 unit-50 mg tab Take 1 tablet by mouth once daily. - calcium Carbonate 300 mg, 750mg, (TUMS) 300 mg (750 mg) chewable tablet Take 1 tablet by mouth once daily as needed. - ferrous sulfate (IRON) 325 mg (65 mg iron) tablet Take 325 mg by mouth daily with breakfast. - cetirizine (ZYRTEC) 10 mg tablet Take 10 mg by mouth once daily. - omeprazole (PRILOSEC) 20 mg capsule Take 20 mg by mouth once daily. - Biotin 10,000 mcg cap Take 1 capsule by mouth once daily. - L. acidophilus/dig enz cmb 5 (PROBIOTIC-DIGESTIVE ENZYMES ORAL) Take 1 tablet by mouth once daily. - Cranberry Extract 500 mg cap Take 1 capsule by mouth once daily. Problem List As Of Date 06/02/2021 Noted Resolved Type 2 diabetes mellitus (HCC) [E11.9] Hyperlipidemia [E78.5] Asthma [J45.909] CKD (chronic kidney disease) stage 3, GFR 30-59* Encounter Status:Closed by DWIGHT GENAO on 06/03/21 [facility] [id number] Author: Mammography Coordinator Service: ? Author Type: Physician Type: Letter Filed: 05/30/2021 11:32 PM Note Text: 2021 PID: [id number] Glendy Pelaez [address] [place] [address] Dear Ms. Pelaez, Your breast imaging exam 2021 showed a possible finding that may require additional imaging studies for a complete evaluation. However, we recognize you have prior imaging studies at facilities other than [facility], and would like the opportunity to compare your recent imaging with those studies to evaluate for any change. At this time, we have requested your prior studies. If/when your prior studies arrive, a final report will be sent to your healthcare provider and/or you. In addition, you will receive a new result letter and or phone call If you need additional imaging. If we do not receive prior studies within 30 days of your exam, you will receive a reminder letter and or phone call to schedule your diagnostic imaging. Your imaging studies and reports are kept on file at [facility] as part of your permanent medical record, and are available for your continuing care. If you have any questions or concerns, please call [phone]. Thank you for choosing [facility] for your imaging needs. Sincerely, Dr. Devlin Interpreting Radiologist [facility] ([employer]) Normal [facility] SCREENINGon 2021 [facility] SCREENING * * *Final Report* * * * * * SEE BOTTOM OF REPORT FOR ADDENDED TEXT * * * DATE OF EXAM: 2021 10:55AM [facility] 0581 - [facility] SCREENING / PROCEDURE REASON: Encounter for screening mammogram for malignant neoplasm of breast * * * * Physician Interpretation * * * * RESULT: THIS REPORT HAS BEEN AMENDED. #[id number] - [facility] SCREENING BILATERAL DIGITAL SCREENING MAMMOGRAM WITH CAD: 2021 HISTORY: Screening Mammogram - patient reports NO breast symptoms / Previous at [facility] for which release is scanned and signed. RESULT: TECHNIQUE: The study was acquired using full field digital technology and interpreted from soft copy. Current study was also evaluated with a Computer Aided Detection (CAD). No prior exams were available for comparison. There are scattered fibroglandular elements in both breasts. There is an asymmetry in the left breast medial region seen on the craniocaudal view only. No other significant masses, calcifications, or other findings are seen in either breast. IMPRESSION: INCOMPLETE: NEEDS ADDITIONAL IMAGING EVALUATION The asymmetry in the left breast is indeterminate. Comparison to prior exams is recommended. SUMMARY: If comparison exams are received, an addendum to this report will be issued. Management recommendations following the comparison will be communicated to the patient. January bernal/rabia:2021 11:05:28 Residential Construction Instructor(s): Tere Chavez RT(R)(M), [facility] letter sent: Comparison Films Needed Mammogram BI-RADS: 0 Incomplete: needs additional imaging evaluation If this report indicates you need additional imaging, and it has NOT yet been performed, please call , to schedule. We sincerely thank you for choosing the [facility] for your breast imaging needs. Multiple national specialty organizations have released breast cancer screening guidelines for women at average risk for developing breast cancer - guidelines that are based on both evidence and opinion, yet differ on when to start and how often to screen for breast cancer. With representation from Breast Imaging, Internal Medicine, Women's Health, Family Medicine, and Medical/Surgical Oncology, the [facility] has carefully reviewed the data and reached the following consensus: 1) All women should engage in shared decision-making with their providers to decide when to start and how often to screen; 2) All women should have the opportunity to start screening mammography at age 40; 3) For women ages 45-55, we recommend annual screening mammograms; 4) For women ages 55 and over, we support both the transition from an annual to a biennial interval if this aligns more with patient's values and preferences, or continuation with annual screening; 5) All women should discuss with their providers when to stop screening mammograms. AMENDMENT: 2021 January Devlin M.D. Prior exams dated 03/13/2019, 12/27/2017, and 03/13/2016 are received for comparison. There has been no significant interval change. Screening mammography in one year is recommended. Amended BI-RADS: 1 Negative letter sent: Normal - Films Compared Breaker Boss: Rabia Transcribe Date/Time: 2021 10:24A Dictated by: JANUARY DEVLIN MD This examination was interpreted and the report reviewed and electronically signed by: JANUARY DEVLIN MD on 2021 11:05AM EST This document has been addended by: JANUARY DEVLIN MD on 2021 4:10PM EST [id number] Normal [facility] CNPHina 02-18-2021 CNPN Telephone (FAMPWS) GLENDY PELAEZ ([id number]) 1960 F Date Time Provider Department 02/18/21 [facility] During your visit today, we recorded the following information about you: Alecia Calhoun RN 02/18/2021 1:03 PM Signed [facility]- asking for maximum daily dose on humalog sliding scale. Insurance will kick it out, without it. Please phone Mariah with reply: [phone] Eloy Miles MD 02/18/2021 1:54 PM Signed New Rx done with max of 40 units/day of humalog MD Martha Tejada Ma 02/18/2021 2:24 PM Signed Mariah notified. Martha Turner Ma Allergies As of Date: 02/18/2021 Noted Allergy Reaction ACTOS (PIOGLITAZONE) 01/27/2019 7 - Swelling DEMORAL (MEPERIDINE) 01/27/2019 8 - GI Upset Date Reviewed: 02/16/2021 Reviewed by: Nubia Scales Ma - Fully Assessed Reason for Visit: Humalog clarification [Other] Visit Diagnosis:Type 2 diabetes mellitus with diabetic polyneuropathy, with long-term current use of insulin ([facility]) [E11.42, Z79.4] Order(s):insulin lispro (HUMALOG KWIKPEN INSULIN) 100 unit/mLInject 8 Units subcutaneously three times daily before meals plus sliding scale (add 1 units for every 50 mg/dL above 150 mg/dL). Maximum of 40 units/dayDisp: 36 mLRfl: 3 Prescriptions as of 02/18/2021 - insulin lispro (HUMALOG KWIKPEN INSULIN) 100 unit/mL Inject 8 Units subcutaneously three times daily before meals plus sliding scale (add 1 units for every 50 mg/dL above 150 mg/dL). Maximum of 40 units/day - metFORMIN ER (GLUCOPHAGE XR) 500 mg 24 hr tablet Take 2 tablets by mouth daily with breakfast. - insulin degludec (TRESIBA) 200 unit/mL (3 mL) injection Inject 40 Units subcutaneously daily at bedtime. - simvastatin (ZOCOR) 20 mg tablet Take 1 tablet by mouth daily at bedtime. - PROAIR HFA 90 mcg/actuation inhaler Inhale 2 Puffs as instructed every 6 hours as needed for wheezing/shortness of breath. - fluticasone-salmeterol (ADVAIR DISKUS) 500-50 mcg/dose dsdv Inhale 1 Puff as instructed twice daily. Rinse and gargle mouth with water after use. - lisinopril (ZESTRIL, PRINIVIL) 5 mg tablet Take 1 tablet by mouth once daily. - flash glucose sensor (FREESTYLE SAIRA 14 DAY SENSOR) kit Use to check blood sugars 4 times daily - insulin needles, DISPOSABLE, (BD INSULIN PEN NEEDLE UF) 31 gauge x 5/16 Use to inject insulin 4 times daily - acetaminophen (TYLENOL EXTRA STRENGTH) 500 mg tablet Take 2 tablets by mouth every 6 hours as needed for Pain. - bee-[id number]-lvj-wkzf- bor (CALTRATE 600-D PLUS MINERALS) 600 mg calcium- 800 unit-50 mg tab Take 1 tablet by mouth once daily. - calcium Carbonate 300 mg, 750mg, (TUMS) 300 mg (750 mg) chewable tablet Take 1 tablet by mouth once daily as needed. - ferrous sulfate (IRON) 325 mg (65 mg iron) tablet Take 325 mg by mouth daily with breakfast. - cetirizine (ZYRTEC) 10 mg tablet Take 10 mg by mouth once daily. - omeprazole (PRILOSEC) 20 mg capsule Take 20 mg by mouth once daily. - Biotin 10,000 mcg cap Take 1 capsule by mouth once daily. - L. acidophilus/dig enz cmb 5 (PROBIOTIC-DIGESTIVE ENZYMES ORAL) Take 1 tablet by mouth once daily. - Cranberry Extract 500 mg cap Take 1 capsule by mouth once daily. Problem List As Of Date 02/18/2021 Noted Resolved Type 2 diabetes mellitus (HCC) [E11.9] Hyperlipidemia [E78.5] Asthma [J45.909] CKD (chronic kidney disease) stage 3, GFR 30-59* Prescriptions ordered this encounter Disp Refills Start End INSULIN LISPRO (U-100) 100 UNIT/ML S* 36 mL 3 02/18/2021 Sig: Inject 8 Units subcutaneously three times daily before meals plus sliding scale (add 1 units for every 50 mg/dL above 150 mg/dL). Maximum of 40 units/day Medications Discontinued During This Encounter Prescriptions - insulin lispro (HUMALOG KWIKPEN INSULIN) 100 unit/mL (Discontinued) Inject 8 Units subcutaneously three times daily before meals plus sliding scale (add 1 units for every 50 mg/dL above 150 mg/dL) Encounter Status:Closed by MARTHA TURNER MA on 02/18/21 [facility] CNOVon 02-16-2021 CNOV Office Visit (FAMPWS ) GLENDY PELAEZ ([id number]) 1960 F Date Time Provider Department 02/16/21 6:00 PM ELOY MILES FAMPWS During your visit today, we recorded the following information about you: Pulse Respiration Blood pressure Weight 78/minute 16/minute 120/72 70.9 kg Eloy Miles MD 02/16/2021 7:55 PM Signed Chief Complaint Patient presents with: Follow Up: diabetes HPI Glendy Pelaez is a 60 year old female who presents here today for follow up. [place] weekends [place] campground, not eating as well there. Campground will close at the end of Feb. Declined flu shot today. No bowel, Gi, or urinary issues. GERD: Controlled with prilosec 20 mg daily. DM: Checking BS 3 x per day. FBS run 50, evenings runs 250. Is taking Metformin 500 mg 2 tablets daily, Tresiba 36 units daily, Humalog 8 units TID and sliding scale. Denies any hypoglycemia issues, she has adjusted her medication as she was having a lot of lows. Denies neuropathy issues. Using Lisinopril 5 mg daily for kidney protection. Has followed with Pharmacist Rabia Nolasco. Lipid: Taking Zocor 20 mg daily. Tries to watch diet, denies much exercise. Asthma: Is using Advair and ProAir inhalers. She states her asthma has been flared up more due to allergies. She is using Zyrtec daily for allergies but it doesn't seem to be working. Has not been using Flonase. Past medical history, appointments, medications, allergies reviewed. Previous Medical History PAST MEDICAL HISTORY Diagnosis Date - Asthma - MATILDA III (cervical intraepithelial neoplasia III) - CKD (chronic kidney disease) stage 3, GFR 30-59 ml/min ([facility]) - Hyperlipidemia - SCC (squamous cell carcinoma) - Type 2 diabetes mellitus (HCC) Previous Surgical History PAST SURGICAL HISTORY Procedure Laterality Date - PAST SURGICAL HISTORY OF N/A 1983 [place] [facility] Family History FAMILY HISTORY Problem Relation Age of Onset - Diabetes Mother - Diabetes Father - Diabetes Sister - Diabetes Brother - Heart Attack Maternal Grandmother - Heart Attack Maternal Grandfather - Dementia Paternal Grandmother - Parkinson?s Disease Paternal Grandfather - Diabetes Sister Patient Allergies ALLERGIES Allergen Reactions - Actos [Pioglitazone] Swelling - Demoral [Meperidine] GI Upset Current Medications Current Outpatient Medications on File Prior to Visit Medication Sig - metFORMIN ER (GLUCOPHAGE XR) 500 mg 24 hr tablet Take 2 tablets by mouth daily with breakfast. - insulin degludec (TRESIBA) 200 unit/mL (3 mL) injection Inject 36 Units subcutaneously daily at bedtime. - insulin lispro (HUMALOG KWIKPEN INSULIN) 100 unit/mL Inject 8 Units subcutaneously three times daily before meals plus sliding scale (add 1 units for every 50 mg/dL above 150 mg/dL) - simvastatin (ZOCOR) 20 mg tablet Take 1 tablet by mouth daily at bedtime. - PROAIR HFA 90 mcg/actuation inhaler Inhale 2 Puffs as instructed every 6 hours as needed for Wheezing/Shortness of Breath. - fluticasone-salmeterol (ADVAIR DISKUS) 500-50 mcg/dose dsdv Inhale 1 Puff as instructed twice daily. Rinse and gargle mouth with water after use. - lisinopril (ZESTRIL, PRINIVIL) 5 mg tablet Take 1 tablet by mouth once daily. - flash glucose sensor (FREESTYLE SAIRA 14 DAY SENSOR) kit Use to check blood sugars 4 times daily - insulin needles, DISPOSABLE, (BD INSULIN PEN NEEDLE UF) 31 gauge x 5/16 Use to inject insulin 4 times daily - acetaminophen (TYLENOL EXTRA STRENGTH) 500 mg tablet Take 2 tablets by mouth every 6 hours as needed for Pain. - [id number]-[id number]-lzab-whm-iltb- bor (CALTRATE 600-D PLUS MINERALS) 600 mg calcium- 800 unit-50 mg tab Take 1 tablet by mouth once daily. - calcium Carbonate 300 mg, 750mg, (TUMS) 300 mg (750 mg) chewable tablet Take 1 tablet by mouth once daily as needed. - ferrous sulfate (IRON) 325 mg (65 mg iron) tablet Take 325 mg by mouth daily with breakfast. - cetirizine (ZYRTEC) 10 mg tablet Take 10 mg by mouth once daily. - omeprazole (PRILOSEC) 20 mg capsule Take 20 mg by mouth once daily. - Biotin 10,000 mcg cap Take 1 capsule by mouth once daily. - L. acidophilus/dig enz cmb 5 (PROBIOTIC-DIGESTIVE ENZYMES ORAL) Take 1 tablet by mouth once daily. - Cranberry Extract 500 mg cap Take 1 capsule by mouth once daily. No current facility-administered medications on file prior to visit. Social History Social History Tobacco Use - Smoking status: Never Smoker - Smokeless tobacco: Never Used Vaping Use - Vaping Use: Never used Substance Use Topics - Alcohol use: Not Currently - Drug use: Never EXAM: BP 120/72 Pulse 78 Resp 16 Wt 70.9 kg (156 lb 6.4 oz) BMI 27.71 kg/m? General Appearance: Well appearing, alert, in no acute distress, well-hydrated, well nourished.. Lungs: Lungs clear to auscultation. No wheezing, rhonchi, rales.. Hea (more content not included)... Normal [facility] Lipid Panel, [place] 021 Cholesterol [Mass/Vol] 163 mg/dL Normal <200 Cl [facility] Comment on above: Result Comment: <200 mg/dL, Desirable 200-239 mg/dL, Borderline high >239 mg/dL, High Performed By: #### L IPB ####[facility], [place] [phone] Cholesterol in HDL [Mass/Vol] 47 mg/dL Normal >39 [facility] Comment on above: Result Comment: 40-5 9 mg/dL, Acceptable >59 mg/dL, High: Negative risk factor for coronary heart disease <40 mg/dL, Low: Positive risk factor for coronary heart disease Performed By: #### L IPB ####[place] [address], [place] [phone] Cholesterol in LDL [Mass/Vol] 91 mg/dL Normal <100 [facility] Comment on above: Result Comment: <100 mg/dL, Optimal 100-129 mg/dL, Near optimal/above optimal 130-159 mg/dL, Borderline high 160-189 mg/dL, High >189 mg/dL, Very high Secondary prevention optimal LDL Cholesterol levels are recommended to be < 70 mg/dL Performed By: #### L IPB ####[place] [address] [place], [place] [phone] Fasting Time 12 hrs Normal [facility] Comment on above: Performed By: #### L IPB ####[facility] [place], [place] [phone] LDL:HDL Ratio 1.94 Normal <2.54 [facility] Comment on above: Result Comment: Refe melvi: 1. National Cholesterol Education Program ATP III Guideline At-A-Glance Quick Desk Reference: National Heart, Lung, and Blood [place]. National Institutes of Health. 2001: NIH Publication No. 01-3305. 2. An International Atherosclerosis Society position paper: global recommendations for the management of dyslipidemia: executive summary, Atherosclerosis. 2014: 232(2):410-413. Performed By: #### L IPB ####[facility], [place] [phone] Non HDL Cholesterol 116 mg/dL Normal <130 [facility] Comment on above: Result Comment: <130 mg/dL, Optimal 130-159 mg/dL, Near optimal/above optimal 160-189 mg/dL, Borderline high 190-219 mg/dL, High >219 mg/dL, Very high Secondary prevention optimal non HDL Cholesterol levels are recommended to be < 100 mg/dL Performed By: #### L IPB ####[place] [address] [address] [place] [phone] TC:HDL Ratio 3.47 Normal <5.10 [facility] Comment on above: Performed By: #### L IPB ####[place] [phone] Triglyceride [Mass/Vol] 124 mg/dL Normal <150 [facility] Comment on above: Result Comment: <150 mg/dL, Normal 150-199 mg/dL, Borderline high 200-499 mg/dL, High >499 mg/dL, Very high Performed By: #### L IPB ####[place] [address] [address] [place] [phone] VLDL Cholesterol 25 mg/dL Normal <30 [facility] Comment on above: Performed By: #### L IPB ####[address] [phone] Remote CMP (for [facility] use only )on 02-05-2021 Albumin [Mass/Vol] 4.2 g/dL Normal 3.9-4.9 [facility] Comment on above: Performed By: #### R CMP, RHBA1C ####[place] [address], [place] [phone] ALP [Catalytic activity/Vol] 92 U/L Normal 34-123 [facility] Comment on above: Performed By: #### R CMP, RHBA1C ####[place] [address], [place] [phone] ALT [Catalytic activity/Vol] 18 U/L Normal 7-38 [facility] Comment on above: Performed By: #### R CMP, RHBA1C ####[place] [phone] Anion gap [Moles/Vol] 12 mmol/L Normal 9-18 [facility] Comment on above: Performed By: #### R CMP, RHBA1C ####[place] [phone] AST [Catalytic activity/Vol] 22 U/L Normal 13-35 [facility] Comment on above: Performed By: #### R CMP, RHBA1C ####[place] [phone] Bilirubin [Mass/Vol] 0.2 mg/dL Normal 0.2-1.3 [facility] Comment on above: Performed By: #### R CMP, RHBA1C ####[place] [phone] Calcium [Mass/Vol] 9.9 mg/dL Normal 8.5-10.2 [facility] Comment on above: Performed By: #### R CMP, RHBA1C ####[place] [phone] Chloride [Moles/Vol] 100 mmol/L Normal 97-105 [facility] Comment on above: Performed By: #### R CMP, RHBA1C ####[address] [phone] CO2 [Moles/Vol] 25 mmol/L Normal 22-30 [facility] Comment on above: Performed By: #### R CMP, RHBA1C ####[address] [phone] Creatinine [Mass/Vol] 1.32 mg/dL High 0.58-0.96 [facility] Comment on above: Performed By: #### R CMP, RHBA1C ####[facility], [place] [phone] eGFR- Amer. 50 Normal [facility] Comment on above: Performed By: #### R CMP, RHBA1C ####[facility] [place], [place] [phone] eGFR-All Other Races 41 . Normal [facility] Comment on above: Result Comment: eGFR (Estimated GFR) Units of measure: mL/min/1.73 meters squared eGFR is derived from the reexpressed MDRD Study equation using the following parameters: serum creatinine, age, gender and race. The creatinine assay has been calibrated to be traceable to IDMS. An eGFR <60 mL/min/1.73m2 for >3 months is consistent with chronic kidney disease. Refer to KDOQI guidelines for clinical interpretation. In patients with unstable renal function, e.g. those with acute kidney injury, the eGFR may not accurately reflect actual GFR. Performed By: #### R HAWA, RHBA1C ####[facility] [place], [place] [phone] Glucose [Mass/Vol] 137 mg/dL High 74-99 [facility] Comment on above: Result Comment: The [place] Diabetes Association (ADA) provides guidance for cutoff values for fasting glucose and random glucose. The ADA defines fasting as no caloric intake for at least 8 hours. Fasting plasma glucose results between 100 to 125 mg/dL indicate increased risk for diabetes (prediabetes). Fasting plasma glucose results greater than or equal to 126 mg/dL meet the criteria for diagnosis of diabetes. In the absence of unequivocal hyperglycemia, results should be confirmed by repeat testing. In a patient with classic symptoms of hyperglycemia or hyperglycemic crisis, random plasma glucose results greater than or equal to 200 mg/dL meet the criteria for diagnosis of diabetes. Reference: Standards of Medical Care in Diabetes 2016, [place] Diabetes Association. Diabetes Care. 2016.39(Suppl 1). Performed By: #### R CMP, RHBA1C ####[facility] [place], [place] [phone] Potassium [Moles/Vol] 5.1 mmol/L Normal 3.7-5.1 [facility] Comment on above: Performed By: #### R CMP, RHBA1C ####[place] [address] [place], [place] [phone] Protein [Mass/Vol] 7.1 g/dL Normal 6.3-8.0 [facility] Comment on above: Performed By: #### R CMP, RHBA1C ####[place] [address], [place] [phone] Sodium [Moles/Vol] 137 mmol/L Normal 136-144 [facility] Comment on above: Performed By: #### R CMP, RHBA1C ####[place] [address] [address] [place], [place] [phone] Urea nitrogen [Mass/Vol] 15 mg/dL Normal 7-21 [facility] Comment on above: Performed By: #### R CMP, RHBA1C ####[place] [address] [place], [place] [phone] Remote HBA1C (for [facility] use on ly)on 02-05-2021 Glucose [Mass/Vol] 223 mg/dL Normal [facility] Comment on above: Result Comment: eAG: (Estimated average glucose) is a calculated value from HgbA1c and is career services representative of the average blood glucose level in the last 2-3 month period. Performed By: #### R CMP, RHBA1C ####[place] [address] [address] [place], [place] [phone] HbA1c (Bld) [Mass fraction] 9.4 % High 4.3-5.6 [facility] Comment on above: Result Comment: [place] Diabetes Association guidelines indicate that patients with HgbA1c in the range 5.7-6.4% are at increased risk for development of diabetes, and intervention by lifestyle modification may be beneficial. HgbA1c greater or equal to 6.5% is considered diagnostic of diabetes. Performed By: #### R CMP, RHBA1C ####[place] [address] [place], [place] [phone] Junior 11-22-2020 CAREN Telephone (FAMPWS) TRAVGLENDY Galicia ([id number]) 1960 F Date Time Provider Department 11/22/20 DWIGHT GENAO During your visit today, we recorded the following information about you: Dwight Genao APRN.CNP 11/22/2020 2:07 PM Signed STAMP Please reach out to patient for overdue appointment for chronic disease management with myself or Dr. Miles, labs are ordered. TIA Camacho Ma 11/22/2020 2:12 PM Signed See outreach encounter. Nubia Scales Ma Allergies As of Date: 11/22/2020 Noted Allergy Reaction ACTOS (PIOGLITAZONE) 01/27/2019 7 - Swelling DEMORAL (MEPERIDINE) 01/27/2019 8 - GI Upset Date Reviewed: 09/01/2020 Reviewed by: Nubia Scales Ma - Fully Assessed Reason for Visit: PHMA/Care Gap Outreach [[id number]] Prescriptions as of 11/22/2020 Sig: METFORMIN ER 500 MG TABLET,EX* Take 2 tablets by mouth daily* INSULIN DEGLUDEC (U-200) 200 * Inject 36 Units subcutaneousl* INSULIN LISPRO (U-100) 100 UN* Inject 8 Units subcutaneously* SIMVASTATIN 20 MG TABLET Take 1 tablet by mouth daily * PROAIR HFA 90 MCG/ACTUATION A* Inhale 2 Puffs as instructed * FLUTICASONE 500 MCG-SALMETERO* Inhale 1 Puff as instructed t* LISINOPRIL 5 MG TABLET Take 1 tablet by mouth once d* FREESTYLE SAIRA 14 DAY SENSOR* Use to check blood sugars 4 t* PEN NEEDLE, DIABETIC 31 GAUGE* Use to inject insulin 4 times* ACETAMINOPHEN 500 MG TABLET Take 2 tablets by mouth every* CALCIUM 600 MG-D3 800 UNIT-MA* Take 1 tablet by mouth once d* CALCIUM CARBONATE 300 MG (750* Take 1 tablet by mouth once d* FERROUS SULFATE 325 MG (65 MG* Take 325 mg by mouth daily wi* CETIRIZINE 10 MG TABLET Take 10 mg by mouth once temitope* OMEPRAZOLE 20 MG CAPSULE,KIERSTEN* Take 20 mg by mouth once temitope* BIOTIN 10,000 MCG CAPSULE Take 1 capsule by mouth once * PROBIOTIC-DIGESTIVE ENZYMES O* Take 1 tablet by mouth once d* CRANBERRY EXTRACT 500 MG CAPS* Take 1 capsule by mouth once * Problem List As Of Date 11/22/2020 Noted Resolved Type 2 diabetes mellitus (HCC) [E11.9] Hyperlipidemia [E78.5] Asthma [J45.909] CKD (chronic kidney disease) stage 3, GFR 30-59* Encounter Status:Closed by NUBIA SCALES MA on 11/22/20 Normal [facility] .GFRon 05-07-2018 GFR 63 ml/min/1.73sqm Normal [facility] ([place]) Comment on above: Result Comment: GFR Population mean for , Non- Americans Ages 20-29 = 116 mL/min/1.73 sq.m. Ages 30-39 = 107 mL/min/1.73 sq.m. Ages 40-49 = 99 mL/min/1.73 sq.m. Ages 50-59 = 93 mL/min/1.73 sq.m. Ages 60-69 = 85 mL/min/1.73 sq.m. Ages 70+ = 75 mL/min/1.73 sq.m.Chronic Kidney Disease: Less than 60 mL/min/1.73 square metersEnd Stage Renal Disease: Less than 15 mL/min/1.73 square meters Performed By: #### B MP, GFR ####[place] [address] GFR Non- 52 ml/min/1.73sqm Normal [facility] ([place]) Comment on above: Result Comment: GFR Population mean for , Non- Americans Ages 20-29 = 116 mL/min/1.73 sq.m. Ages 30-39 = 107 mL/min/1.73 sq.m. Ages 40-49 = 99 mL/min/1.73 sq.m. Ages 50-59 = 93 mL/min/1.73 sq.m. Ages 60-69 = 85 mL/min/1.73 sq.m. Ages 70+ = 75 mL/min/1.73 sq.m.Chronic Kidney Disease: Less than 60 mL/min/1.73 square metersEnd Stage Renal Disease: Less than 15 mL/min/1.73 square meters Performed By: #### B MP, GFR ####[place] [address] BMPon 05-07-2018 Calcium mass conc 9.5 mg/dL Normal 8.4-10.2 [facility] ([place]) Comment on above: Performed By: #### B MP, GFR ####[place] [address] Chloride molar conc 102 mmol/L Normal 98-107 [facility] ([place]) Comment on above: Performed By: #### B MP, GFR ####[place] [address] CO2 molar conc 29 mmol/L Normal 22-29 [facility] ([place]) Comment on above: Performed By: #### B MP, GFR ####[place] [address] Creatinine mass conc 1.09 mg/dL High 0.55-1.02 [facility] ([place]) Comment on above: Performed By: #### B MP, GFR ####[place] [address] Electrolyte Balance 8.0 mEq/L Normal [facility] ([place]) Comment on above: Performed By: #### B MP, GFR ####[place] [address] Glucose mass conc 114 mg/dL High 70-105 [facility] ([place]) Comment on above: Performed By: #### B MP, GFR ####[place] [address] Potassium molar conc 4.4 mmol/L Normal 3.5-5.1 [facility] ([place]) Comment on above: Performed By: #### B MP, GFR ####[address] [address] Sodium molar conc 139 mmol/L Normal 136-145 [facility] ([place]) Comment on above: Performed By: #### B MP, GFR ####[place] [id number] [place] [address] Urea nitrogen mass conc 13 mg/dL Normal 7-18 [facility] ([place]) Comment on above: Performed By: #### B MP, GFR ####[address] [address] Urea nitrogen/Creatinine mass ratio 12 ratio Normal 7-27 [facility] ([place]) Comment on above: Performed By: #### B MP, GFR ####[address] [address] .GFRon 03-21-2018 GFR Non- 44 ml/min/1.73sqm Normal [facility] ([place]) Comment on above: Result Comment: GFR Population mean for , Non- Americans Ages 20-29 = 116 mL/min/1.73 sq.m. Ages 30-39 = 107 mL/min/1.73 sq.m. Ages 40-49 = 99 mL/min/1.73 sq.m. Ages 50-59 = 93 mL/min/1.73 sq.m. Ages 60-69 = 85 mL/min/1.73 sq.m. Ages 70+ = 75 mL/min/1.73 sq.m.Chronic Kidney Disease: Less than 60 mL/min/1.73 square metersEnd Stage Renal Disease: Less than 15 mL/min/1.73 square meters Performed By: #### C MP, GFR, LIPID ####[address] [address] GFR 53 ml/min/1.73sqm Normal [facility] ([place]) Comment on above: Result Comment: GFR Population mean for , Non- Americans Ages 20-29 = 116 mL/min/1.73 sq.m. Ages 30-39 = 107 mL/min/1.73 sq.m. Ages 40-49 = 99 mL/min/1.73 sq.m. Ages 50-59 = 93 mL/min/1.73 sq.m. Ages 60-69 = 85 mL/min/1.73 sq.m. Ages 70+ = 75 mL/min/1.73 sq.m.Chronic Kidney Disease: Less than 60 mL/min/1.73 square metersEnd Stage Renal Disease: Less than 15 mL/min/1.73 square meters Performed By: #### C MP, GFR, LIPID ####[address] [address] CMPon 03-21-2018 Albumin mass conc 4.0 G/dL Normal 3.5-5.0 [facility] ([place]) Comment on above: Performed By: #### C MP, GFR, LIPID ####[place] [address] Albumin/Globulin mass ratio 1.3 {ratio} Normal 1.1-2.5 [facility] ([place]) Comment on above: Performed By: #### C MP, GFR, LIPID ####[place] [address] ALP enzyme act/vol 132 U/L Normal 40-135 [facility] ([place]) Comment on above: Performed By: #### C MP, GFR, LIPID ####[place] [address] ALT enzyme act/vol 31 U/L Normal 10-35 [facility] ([place]) Comment on above: Performed By: #### C MP, GFR, LIPID ####[place] [address] AST enzyme act/vol 15 U/L Normal 10-40 [facility] ([place]) Comment on above: Performed By: #### C MP, GFR, LIPID ####[place] [address] Bili Total 0.3 mg/dL Normal 0.2-1.0 [facility] ([place]) Comment on above: Performed By: #### C MP, GFR, LIPID ####[place] [address] Calcium mass conc 9.3 mg/dL Normal 8.4-10.2 [facility] ([place]) Comment on above: Performed By: #### C MP, GFR, LIPID ####[address] [address] Chloride molar conc 98 mmol/L Normal 98-107 [facility] ([place]) Comment on above: Performed By: #### C MP, GFR, LIPID ####[place] [address] CO2 molar conc 28 mmol/L Normal 22-29 [facility] ([place]) Comment on above: Performed By: #### C MP, GFR, LIPID ####[place] [address] Creatinine mass conc 1.27 mg/dL High 0.55-1.02 [facility] ([place]) Comment on above: Performed By: #### C MP, GFR, LIPID ####[place] [address] Electrolyte Balance 11.0 mEq/L Normal [facility] ([place]) Comment on above: Performed By: #### C MP, GFR, LIPID ####[place] [address] Globulin Calculated mass conc (S) 3.1 G/dL Normal [facility] ([place]) Comment on above: Performed By: #### C MP, GFR, LIPID ####[place] [address] Glucose mass conc 87 mg/dL Normal 70-105 [facility] ([place]) Comment on above: Performed By: #### C MP, GFR, LIPID ####[place] [address] Potassium molar conc 3.9 mmol/L Normal 3.5-5.1 [facility] ([place]) Comment on above: Performed By: #### C MP, GFR, LIPID ####[place] [address] Protein mass conc 7.1 G/dL Normal 6.4-8.2 [facility] ([place]) Comment on above: Performed By: #### C MP, GFR, LIPID ####[place] [address] Sodium molar conc 137 mmol/L Normal 136-145 [facility] ([place]) Comment on above: Performed By: #### C MP, GFR, LIPID ####[facility] [place] [place] [address] Urea nitrogen mass conc 17 mg/dL Normal 7-18 [facility] ([place]) Comment on above: Performed By: #### C MP, GFR, LIPID ####[place] [address] [place] [address] Urea nitrogen/Creatinine mass ratio 13 ratio Normal 7-27 [facility] ([place]) Comment on above: Performed By: #### C MP, GFR, LIPID ####[place] [address] [place] [address] LIPIDon 03-21-2018 Cholesterol in HDL mass conc 40 mg/dL Normal 40-60 [facility] ([place]) Comment on above: Performed By: #### C MP, GFR, LIPID ####[address] [address] Cholesterol in LDL mass conc 119 mg/dL Normal 0-130 [facility] ([place]) Comment on above: Performed By: #### C MP, GFR, LIPID ####[address] [address] Cholesterol mass conc 210 mg/dL High 0-200 [facility] ([place]) Comment on above: Result Comment: Chol esterol Reference Interval:Less than 200 [id number] Borderline high [id number] and above High risk Performed By: #### C MP, GFR, LIPID ####[address] [address] Triglyceride mass conc 256 mg/dL High 0-150 [facility] [facility] ([place]) Comment on above: Result Comment: Trig lyceride Reference Interval:Less than 150 [id number] Borderline high [id number] High [id number] or higher Very high risk Performed By: #### C MP, GFR, LIPID ####[place] [id number] [address] [place] [id number] Vital Signs Date Time Vital Sign Value Performing Clinician Aly rose 03-14-2022 11:49-0400 Body height 160.02 cm [facility] Work Phone: 03-14-2022 11:49-0400 Body weight 73.02 kg [facility] Work Phone: 11-01-2021 08:26-0400 Body temperature 97.9 [degF] Leandro Louie APRN.ACID BATH MIXER Work Phone: [facility] 11-01-2021 08:26-0400 Body weight 71.31 kg Leandro Louie APRN.ACID BATH MIXER Work Phone: [facility] 11-01-2021 08:26-0400 Diastolic blood pressure 78 mm[Hg] Leandro Louie APRN.ACID BATH MIXER Work Phone: [facility] 11-01-2021 08:26-0400 Heart rate 97 /min Leandro Louie APRN.ACID BATH MIXER Work Phone: [facility] 11-01-2021 08:26-0400 Respiratory rate 18 /min Leandro Louie APRN.ACID BATH MIXER Work Phone: [facility] 11-01-2021 08:26-0400 SaO2% (BldA) [Mass fraction] 98 % Leandro Louie APRN.ACID BATH MIXER Work Phone: [facility] 11-01-2021 08:26-0400 Systolic blood pressure 138 mm[Hg] Leandro Louei APRN.ACID BATH MIXER Work Phone: [facility] Encounters Encounter Date Encounter Type Care Provider Facility Start: 09-23-2024 End: 09-23-[address] Thanh Amado MD Work Phone: [facility] Work Phone: Start: 09-23-2024 End: 09-23-2024 Patient encounter procedure Shen Merrill CLINICAL SAFETY MANAGER-C -Laboratory, Specimen Work Phone: Start: 09-23-2024 End: 09-23-2024 ambulatory Thanh Amado Facility:[facility] Start: 09-19-2024 End: 09-19-[address] Thanh Amado MD Work Phone: [facility] Work Phone: Start: 09-19-2024 End: 09-19-[address] Thanh Amado MD -Outpatient Breast Imaging Work Phone: Start: 09-19-2024 End: 09-19-2024 ambulatory [facility] Facility:[facility] Start: 06-23-2024 End: 06-23-[address] Thanh Amado MD -Ultrasound, [facility] Work Phone: Start: 06-23-2024 End: 06-23-2024 ambulatory Chester Ingris Facility:[facility] Start: 06-09-2024 End: 06-09-[address] [facility]: 06-09-2024 End: 06-09-2024 ambulatory Chester Ingris Facility:[facility] Start: 09-14-2023 End: 09-14-2023 ambulatory [facility] Work Phone: Start: 09-14-2023 End: 09-14-2023 Patient encounter procedure [facility]-Outpatient Breast Imaging Work Phone: Start: 06-06-2023 End: 06-06-2023 ambulatory [facility] Work Phone: Start: 06-06-2023 End: 06-06-2023 Patient encounter procedure [facility] Start: 03-12-2023 End: 03-12-2023 [facility] Start: 09-06-2022 End: 09-06-2022 ambulatory [facility] Work Phone: Start: 09-06-2022 End: 09-06-2022 Patient encounter procedure [facility]-Laboratory, Specimen Start: 06-07-2022 End: 06-07-2022 ambulatory [facility] Work Phone: Start: 06-07-2022 End: 06-07-2022 Patient encounter procedure [facility]-Outpatient Breast Imaging Start: 03-14-2022 End: 03-17-2022 ambulatory [facility] Work Phone: Start: 03-14-2022 End: 03-17-2022 Discharged Recurring [facility] Start: 03-06-2022 End: 03-06-2022 Patient encounter procedure [facility]-Laboratory Start: 12-09-2021 ambulatory Eloy olivarez MD Work Phone: [facility] Comment on above: Cancel Appt- change in insurance Start: 11-02-2021 Telephone encounter Nazanin Khan Comment on above: Diabetes Ed Follow U p Start: 11-01-2021 End: 11-01-2021 Patient encounter procedure Leandro Louie PEACE.ACID BATH MIXER Work Phone: [facility] Comment on above: Sinus congestion (Pr imary Dx) Start: 10-28-2021 ambulatory Eloy olivarez MD Work Phone: [facility] Comment on above: Prednisone Start: 10-25-2021 ambulatory Rabia Dubgregoria [facility] Work Phone: [facility] Comment on above: Low Blood sugar Start: 05-07-2018 End: 05-12-2018 Patient encounter procedure Janet Mejia Facility:[facility] Start: 03-21-2018 End: 03-26-2018 Patient encounter procedure Janet Mejia Facility:[facility] Procedures Date Procedure Procedure Detail Performing Clinician Start: 09-19-2024 Screening mammography Hoa Amado MD Work Phone: Start: 06-23-2024 Complete ultrasound of kidneys and bladder Dr. Thanh Amado MD Work Phone: Start: 09-14-2023 Screening mammography Start: 06-07-2022 Screening mammography Start: 07-12-2021 Adult depression screening assessment Eloy Miles MD Work Phone: Start: 2021 Mammography Eloy duval MD Work Phone: Urine culture Plan of Treatment Date Care Activity Detail Author Start: 09-23-2024 Cervical cytology test [facility] Start: 06-25-2023 HPV TEST[address] [facility] Start: 12-10-2022 [address] [facility] Start: 07-12-2022 Adult depression screening assessment DEPRESSION SCREENING [facility] Start: 07-12-2022 ANNUAL PCP TEAM ALLERGY NURSE CHARMAINE DISEASE VISIT ANNUAL PCP TEAM CHRONIC DISEASE VISIT [facility] Start: 07-06-2022 SERUM CREATININE SERUM CREATININE Cl [facility] Start: [address] [facility] Start: 02-16-2022 HIV SCREENING HIV SCREENING [facility] Comment on above: Postponed from 05/26 (Declined at this time) Start: 02-16-2022 Influenza vaccination INFLUENZA (Sea son Ended) [facility] Start: 02-05-2022 Hepatitis B surface antibody level LDL CHOLESTEROL [facility] Start: 10-15-2021 COVID-19 VACCINE (4 - Booster for Moderna series) COVID-19 VACCINE (4 - Booster for Moderna series) [facility] Start: 10-04-2021 Hemoglobin A1c/Hemoglobin.total in Blood HBA1C [facility] Start: 09-01-2021 3 comp foot exam completed DIABETIC FOOT EXAM [facility] Start: 07-21-2021 Hepatitis C antibody , confirmatory test DILATED RETINAL EXAM [facility] Start: 05-27-2021 COLORECTAL CANCER SCREENING COLORECTAL CANCER SCREENING [facility] Start: 05-27-2021 FECAL OCCULT BLOOD FECAL OCCULT BLOO D [facility] Start: 2021 HEMOGLOBIN/HEMATOCRIT HEMOGLOBIN/HEM ATOCRIT [facility] Start: 2021 Hepatitis B screening URINE AL BUMIN:CREATININE RATIO [facility] Start: 05-07-2020 PNEUMOCOCCAL (2 - PCV) PNEUMOCOCCAL (2 - PCV) [facility] Start: 2011 SHINGRIX VACCINE (1 of 2) SHINGRIX VACCINE (1 of 2) [facility] Start: 2006 COLOGUARD (FIT-DNA) COLOGUARD (FIT-D NA) [facility] Start: [address] [facility] Start: [address] COLONOGRAPHY [facility] Start: 2006 SIGMOIDOSCOPY SIGMOIDOSCOPY [facility] Start: 1980 Urine microalbumin profile DTAP,TDAP,TD (1 - Tdap) [facility] Start: [address] [facility] Neisseria gonorrhoea e nucleic acid detection [facility] Path report.final Dx Spec [facility] PCR test for Chlamyd ia trachomatis [facility] Immunizations Immunization Date Immunization Notes Care Provider Ruben george 06-16-2021 COVID-19 vaccine, booster dose (MODERNA) Eloy Miles MD Work Phone: [facility] 05-07-2019 influenza, injectabl e, quadrivalent, contains preservative Eloy Miles MD Work Phone: [facility] 05-07-2019 pneumococcal polysaccharide vaccine, 23 valent Eloy Miles MD Work Phone: [facility] 04-18-2019 influenza, injectabl e, quadrivalent, preservative free [facility] 04-18-2019 influenza, seasonal, injectable [facility] 10-12-2018 tetanus toxoid, redu dena diphtheria toxoid, and acellular pertussis vaccine, adsorbed [facility] Payers Date Payer Category Payer Self-pay [id number] 2021 Unknown [employer]I [employer]BARR[employer] PPO [id number] 2021-Present [phone] [address] [place] [address] PPO [id number] 2018 Private Health Insurance [id number] 1960 Unknown [id number] 1960 Unknown [id number] Private Health Insurance [employer] [id number] Unknown KARI [id number] Unknown [id number] Unknown [id number] Unknown [id number] Unknown [id number] Social History Date Type Detail Facility Start: 01-27-2019 End: 10-03-2019 Tobacco smoking status NHIS Never smoked tobacco [facility] Start: 01-27-2019 Tobacco use and exposure Smoke less tobacco non-user [facility] Start: 07-25-2021 End: 11-01-2021 Alcohol intake Ex-drinker (finding) [facility] Start: 06-24-2021 History SDOH Alcohol Frequency 2 [facility] Start: 06-24-2021 History SDOH Alcohol Std Drinks 98 [facility] Start: 06-24-2021 History SDOH Alcohol Binge 1 [facility] Start: 06-24-2021 History SDOH Social Connections Phone 5 [facility] Start: 06-24-2021 History SDOH Social Connections [facility] 3 [facility] Start: 07-06-2021 History SDOH Physica l Activity DPW 0 [facility] Start: 06-24-2021 History SDOH Financial 4 [facility] Start: [address] [facility] Start: 1960 Sex Assigned At Female C [facility] Start: 10-22-2021 End: 11-01-2021 Exposure to SARS-CoV-2 (event) Not sure [facility] Work Phone: Start: 10-03-2019 End: 10-04-2019 Tobacco smoking status NHIS Unknown if ever smoked [facility] Start: 10-03-2019 None [facility] Start: 07-23-2019 Non-smoker [facility] Start: 09-24-2024 End: 09-29-2024 Sex Female (finding) [facility] Medical Equipment Procedure Code Equipment Code Equipment Origin al Text Equipment Identifier Dates Use to inject insulin 4 times daily Start: 07-12-2021 Comment on above: Use to inject insuli n 4 times daily Clinical Notes 11-22-2020 to 12-12-2021 Telephone Encounter - Dwight Genao APRN.CNP - 12/12/2021 10:05 AM EDTTelephone Encounter - Camille Florez Ma - 12/12/2021 9:35 AM EDTTelephone Encounter - Rabia Nolasco RPh - 11/10/2021 4:18 PM EDT Note Date & Type Note Facility 12-12-2021 Miscellaneous Notes PCP removed. Dwight Genao APRN.CNP FYI .. pt will no longer be following with you as PCP. Can we remove you as PCP? Camille Florez Ma documented in this encounter [facility] 11-10-2021 Miscellaneous Notes Images from the original note were not included. Very limited BG readings since patient is not monitoring BG with CGM 4 times daily as directed. Only 21% capture rate on CGM. Rabia Nolasco PharmD, BCACP Primary Care Clinical Pharmacist [facility] documented in this encounter [facility] 11-02-2021 Miscellaneous Notes Sw and nurse called to check and follow up with patient as part of our diabetes program. Patient reports that she loves the freestyle saira. Patient reports that she is now on a sliding insulin scale. Patient reports that she has been having lows 15 units of humalog and tresiba is down to 30 units. Patient notes that before her lows were at night and now the lows are during the day. Her lows have been down to 40. Concerns now that patient has been a type 2 diabetic and now concerns and we are checking to see if she is a type 1 diabetic. Patient notes that Jonna Duff/Dr. Miles has put in for labs to check and see if this is the case. Patient reports that her sugar when she woke up this morning was 325. Patient notes that she is on prednisone and has an upper respiratory infection. Patient reports that she has been out walking her dog and has been enjoying the warmer weather. documented in this encounter [facility] 11-01-2021 Note HNO ID: [id number] Author: Leandro Louie APRN.ACID BATH MIXER Service: ? Author Type: Nurse Practitioner Type: Progress Notes Filed: 11/01/2021 9:04 AM Note Text: CC: Patient presents with: Cough: cough, sinus and CELAYA x 8 days HPI: Glendy Pelaez is a 61 year old female who presents to the office with complaint of cough, nonproductive, wheezing and sinus symptoms for 8 days. Symptoms are worsening Associated symptoms includes headache. Denies fever, nausea, vomiting and diarrhea. Treatments tried include nothing so far. with no relief of symptoms. Sick contacts: unknown. History of asthma, frequent episodes of bronchitis, chronic bronchitis, bronchiectasis or COPD: No Smoker: No Seasonal/environmental allergies: No The ROS is otherwise negative. The patient's pmh, medications, allergies, and past visits are reviewed. PHYSICAL EXAM: BP 138/78 Pulse 97 Temp 36.6 ?C (97.9 ?F) (Tympanic) Resp 18 Wt 71.3 kg (157 lb 3.2 oz) SpO2 98% BMI 27.85 kg/m? General appearance: alert, cooperative, pleasant, in no acute distress Head: Normocephalic Eyes: EOM's intact, conjunctiva pink and moist, no icterus, sclera white, non-injected Ears: Right ear: External ear/canal- Normal, TM - clear with good landmarks. Left ear: External ear/canal- Normal, TM - clear with good landmarks Oropharynx:moist without lesions, No erythema, exudates or tonsillar hypertrophy. Heart: Negative. RRR without obvious murmur, gallop, or rubs. No ectopy. Lungs: wheezing throughout bilaterally. PAST MEDICAL HISTORY Diagnosis Date - Asthma - MATILDA III (cervical intraepithelial neoplasia III) - CKD (chronic kidney disease) stage 3, GFR 30-59 ml/min ([facility]) - Hyperlipidemia - SCC (squamous cell carcinoma) - Type 2 diabetes mellitus (HCC) PAST SURGICAL HISTORY Procedure Laterality Date - PAST SURGICAL HISTORY OF N/A 1983 [place] ALLERGIES Actos [Pioglitazone] and Demoral [Meperidine] MEDICATIONS flash glucose sensor (FREESTYLE SAIRA 14 DAY SENSOR) kit Use to check blood sugars 4 times daily insulin degludec (TRESIBA) 200 unit/mL (3 mL) injection Inject 30 Units subcutaneously daily at bedtime. insulin lispro (HUMALOG KWIKPEN INSULIN) 100 unit/mL Inject 12 Units subcutaneously three times daily before meals plus sliding scale (add 1 units for every 50 mg/dL above 150 mg/dL). Maximum of 40 units/day insulin needles, DISPOSABLE, (BD INSULIN PEN NEEDLE UF) 31 gauge x 5/16 Use to inject insulin 4 times daily flash glucose scanning reader (FREESTYLE SAIRA 14 DAY READER) Inject 1 Each subcutaneously as directed. metFORMIN ER (GLUCOPHAGE XR) 500 mg 24 hr tablet Take 2 tablets by mouth daily with breakfast. simvastatin (ZOCOR) 20 mg tablet Take 1 tablet by mouth daily at bedtime. PROAIR HFA 90 mcg/actuation inhaler Inhale 2 Puffs as instructed every 6 hours as needed for wheezing/shortness of breath. fluticasone-salmeterol (ADVAIR DISKUS) 500-50 mcg/dose dsdv Inhale 1 Puff as instructed twice daily. Rinse and gargle mouth with water after use. lisinopril (ZESTRIL, PRINIVIL) 5 mg tablet Take 1 tablet by mouth once daily. acetaminophen (TYLENOL EXTRA STRENGTH) 500 mg tablet Take 2 tablets by mouth every 6 hours as needed for Pain. [id number] (CALTRATE 600-D PLUS MINERALS) 600 mg calcium- 800 unit-50 mg tab Take 1 tablet by mouth once daily. calcium Carbonate 300 mg, 750mg, (TUMS) 300 mg (750 mg) chewable tablet Take 1 tablet by mouth once daily as needed. ferrous sulfate (IRON) 325 mg (65 mg iron) tablet Take 325 mg by mouth daily with breakfast. cetirizine (ZYRTEC) 10 mg tablet Take 10 mg by mouth once daily. omeprazole (PRILOSEC) 20 mg capsule Take 20 mg by mouth once daily. Biotin 10,000 mcg cap Take 1 capsule by mouth once daily. L. acidophilus/dig enz cmb 5 (PROBIOTIC-DIGESTIVE ENZYMES ORAL) Take 1 tablet by mouth once daily. Cranberry Extract 500 mg cap Take 1 capsule by mouth once daily. amoxicillin-clavulanic acid (AUGMENTIN) 875-125 mg per tablet Take 1 tablet by mouth twice daily for 5 days. predniSONE (DELTASONE) 20 mg tablet Take 2 tablets by mouth once daily for 4 days. benzonatate (TESSALON PERLES) 100 mg capsule Take 1 capsule by mouth three times daily as needed for cough for up to 5 days. FAMILY HISTORY Problem Relation Age of Onset - Diabetes Mother - Diabetes Father - Diabetes Sister - Diabetes Brother - Heart Attack Maternal Grandmother - Heart Attack Maternal Grandfather - Dementia Paternal Grandmother - Parkinson?s Disease Paternal Grandfather - Diabetes Sister Social History Tobacco Use - Smoking status: Never Smoker - Smokeless tobacco: Never Used Vaping Use - Vaping Use: Never used Substance Use Topics - Alcohol use: Not Currently - Drug use: Never ASSESSMENT/PLAN: 1. Sinus congestion - ICD9: 478.19, ICD10: R09.81 Prescription instructions reviewed with patient as applicable. Augmentin bi (more content not included)... [facility] 11-01-2021 Instructions Leandro Louie APRN.[facility] 11/01/2021 8:44 AM EDT 1.) Get more rest than you usually do - this will speed your recovery. If you push hard with your usual busy schedule, you will be sicker longer. 2.) Drink a lot of water - enough to make you urinate every 2-3 hours (your urine should be a light yellow color). This helps thin the phlegm and sooth the airways. Gatorade (G2) is less in sugar and replaces your electrolytes if not eating well. 3.) Run a cool mist humidifier in your bedroom on high with the door closed. This is a natural way to decongest, and it helps lessen scratchy throats, nasal stuffiness and coughs. 4.) For those without blood pressure concerns, take Sudafed as a decongestant (decreases stuffiness-lets drain), but realize that you will need to take it every 4-6 hours for several days. The lower dose is generally better tolerated (30mg)... Some people can make feel fast heart rate/jittery. You also may try anti-allergy pill like Claritin(loratidine) 10mg or brandi, benadryl (makes sleepy) over the counter as directed to help with drippy nose. Mucinex 600-1200mg twice daily(plain) may help thin secretions so they are easier to cough up. Those with high blood pressure and not with prostate problems can try [id number] Coricidin HBP for congestion. You may find nasal sprays such as Flonase or Nasacort, saline nasal spray and/or Netti Pot may be beneficial 5.) Take ibuprofen or acetominophen every 4-6 hours for pain/aches as needed if not contraindicated for you. Antibiotic as directed per prescription If you should breakout in a rash, stop the medicine and call the office. Any antibiotic has the potential to cause diarrhea due to alteration in the normal bacterial jossy of the gut. This can be reduced by eating yogurt with active cultures or taking probiotics daily while on the medication. If diarrhea becomes severe (watery, large volumes or more than 3-4/day) call the office. Women may experience yeast vaginitis due to alteration in the vaginal jossy. Symptoms include vaginal itching, irritation, and often a clumpy white discharge. If this occurs, there are several effective over the counter remedies available, including one-dose treatments. If these are unsuccessful, call the office. Antibiotics may interfer with control. If you are on oral contraceptives, use another form of protection (condoms, foams, jellies, diaphragm) throught the end of whatever pill pack you are on in 10 days. If you are not improving in 3-5 days or are worsening follow up with PCP documented in this encounter [facility] 11-01-2021 History of Presen t illness Narrative CC: Patient presents with: Cough: cough, sinus and CELAYA x 8 days HPI: Glendy Pelaez is a 61 year old female who presents to the office with complaint of cough, nonproductive, wheezing and sinus symptoms for 8 days. Symptoms are worsening Associated symptoms includes headache. Denies fever, nausea, vomiting and diarrhea. Treatments tried include nothing so far. with no relief of symptoms. Sick contacts: unknown. History of asthma, frequent episodes of bronchitis, chronic bronchitis, bronchiectasis or COPD: No Smoker: No Seasonal/environmental allergies: No The ROS is otherwise negative. The patient's pmh, medications, allergies, and past visits are reviewed. PHYSICAL EXAM: BP 138/78 Pulse 97 Temp 36.6 C (97.9 F) (Tympanic) Resp 18 Wt 71.3 kg (157 lb 3.2 oz) SpO2 98% BMI 27.85 kg/m General appearance: alert, cooperative, pleasant, in no acute distress Head: Normocephalic Eyes: EOM's intact, conjunctiva pink and moist, no icterus, sclera white, non-injected Ears: Right ear: External ear/canal- Normal, TM - clear with good landmarks. Left ear: External ear/canal- Normal, TM - clear with good landmarks Oropharynx:moist without lesions, No erythema, exudates or tonsillar hypertrophy. Heart: Negative. RRR without obvious murmur, gallop, or rubs. No ectopy. Lungs: wheezing throughout bilaterally. PAST MEDICAL HISTORY Diagnosis Date Asthma MATILDA III (cervical intraepithelial neoplasia III) CKD (chronic kidney disease) stage 3, GFR 30-59 ml/min (HCC) Hyperlipidemia SCC (squamous cell carcinoma) Type 2 diabetes mellitus (HCC) PAST SURGICAL HISTORY Procedure Laterality Date PAST SURGICAL HISTORY OF N/A 1983 [place] ALLERGIES Actos [Pioglitazone] and Demoral [Meperidine] MEDICATIONS flash glucose sensor (FREESTYLE SAIRA 14 DAY SENSOR) kit Use to check blood sugars 4 times daily insulin degludec (TRESIBA) 200 unit/mL (3 mL) injection Inject 30 Units subcutaneously daily at bedtime. insulin lispro (HUMALOG KWIKPEN INSULIN) 100 unit/mL Inject 12 Units subcutaneously three times daily before meals plus sliding scale (add 1 units for every 50 mg/dL above 150 mg/dL). Maximum of 40 units/day insulin needles, DISPOSABLE, (BD INSULIN PEN NEEDLE UF) 31 gauge x 5/16 Use to inject insulin 4 times daily flash glucose scanning reader (FREESTYLE SAIRA 14 DAY READER) Inject 1 Each subcutaneously as directed. metFORMIN ER (GLUCOPHAGE XR) 500 mg 24 hr tablet Take 2 tablets by mouth daily with breakfast. simvastatin (ZOCOR) 20 mg tablet Take 1 tablet by mouth daily at bedtime. PROAIR HFA 90 mcg/actuation inhaler Inhale 2 Puffs as instructed every 6 hours as needed for wheezing/shortness of breath. fluticasone-salmeterol (ADVAIR DISKUS) 500-50 mcg/dose dsdv Inhale 1 Puff as instructed twice daily. Rinse and gargle mouth with water after use. lisinopril (ZESTRIL, PRINIVIL) 5 mg tablet Take 1 tablet by mouth once daily. acetaminophen (TYLENOL EXTRA STRENGTH) 500 mg tablet Take 2 tablets by mouth every 6 hours as needed for Pain. [id number] (CALTRATE 600-D PLUS MINERALS) 600 mg calcium- 800 unit-50 mg tab Take 1 tablet by mouth once daily. calcium Carbonate 300 mg, 750mg, (TUMS) 300 mg (750 mg) chewable tablet Take 1 tablet by mouth once daily as needed. ferrous sulfate (IRON) 325 mg (65 mg iron) tablet Take 325 mg by mouth daily with breakfast. cetirizine (ZYRTEC) 10 mg tablet Take 10 mg by mouth once daily. omeprazole (PRILOSEC) 20 mg capsule Take 20 mg by mouth once daily. Biotin 10,000 mcg cap Take 1 capsule by mouth once daily. L. acidophilus/dig enz cmb 5 (PROBIOTIC-DIGESTIVE ENZYMES ORAL) Take 1 tablet by mouth once daily. Cranberry Extract 500 mg cap Take 1 capsule by mouth once daily. amoxicillin-clavulanic acid (AUGMENTIN) 875-125 mg per tablet Take 1 tablet by mouth twice daily for 5 days. predniSONE (DELTASONE) 20 mg tablet Take 2 tablets by mouth once daily for 4 days. benzonatate (TESSALON PERLES) 100 mg capsule Take 1 capsule by mouth three times daily as needed for cough for up to 5 days. FAMILY HISTORY Problem Relation Age of Onset Diabetes Mother Diabetes Father Diabetes Sister Diabetes Brother Heart Attack Maternal Grandmother Heart Attack Maternal Grandfather Dementia Paternal Grandmother Parkinson s Disease Paternal Grandfather Diabetes Sister Social History Tobacco Use Smoking status: Never Smoker Smokeless tobacco: Never Used Vaping Use Vaping Use: Never used Substance Use Topics Alcohol use: Not Currently Drug use: Never ASSESSMENT/PLAN: 1. Sinus congestion - ICD9: 478.19, ICD10: R09.81 Prescription instructions reviewed with patient as applicable. Augmentin bid for 5 days, prednisone daily ( will monitor blood sugars), tessalon pearls PRN. Potential red flag symptoms discussed with the patient. Reviewed appropriate action plan to take if red flag symptoms occur. Patient agreeable to treatment plan. Leandro Louie APRN.MISTY documented in this encounter [facility] 10-28-2021 Miscellaneous Notes Noted. Dwight Genao APRN.CNP Pt advised that symptoms worsening having increased sob, rattling in her chest and using her inhaler more that she should be evaluated. I notified pt that she should go to UC to be evaluated. Please review message and advise. Camille Florez Ma Asked pt additional questions. If getting worse and having sob, pt should be evaluated either by Provider/UC. Wait on pt response. Camille Florez Ma documented in this encounter [facility] 07-12-2021 Note HNO ID: [id number] Author: Rabia Nolasco RPh Service: ? Author Type: Pharmacist Type: Progress Notes Filed: 07/25/2021 9:32 AM Note Text: Primary Care Pharmacy Visit REASON FOR CONSULT: DM GOALS: A1c CONSULTING PROVIDER:?Dr.?Mark Miles Date of Consult:?05/12/19 Glendy Pelaez is a 61 year old female presenting for follow up visit virtually. Patient consents to pharmacy collaborative practice agreement. Last seen by PCP, Dr. Eloy Miles MD on 07/12/21. At last PCP appt, azithromycin and prednisone was tapered down following recent course for bronchitis and pt was instructed to follow up with pharmacy for DM management. Patient used to follow with pharmacy for DM but was lost to follow up due to no shows. INTERIM HISTORY: Pt reports she has self increased Tresiba to 52 units once daily Having many lows and highs, BG fluctuating Still has CGM Needs refill for pen needles Current DM Medications: Metformin ER 500 mg?- 2 tabs daily with meals? Insulin degludec?40?units daily at bedtime - Taking differently: 52 units daily Insulin lispro?8 units TID before meals plus sliding scale - Taking differently: 10 units TID Add 0 units if BS is between 70-150 Add 1 units if BS is between 151-200 Add 2 units if BS is between 201-250 Add 3 units if BS is between 251-300 Add 4 units if BS is between 301-350 Add 5 units if BS is between 351-400 BS > 400 , call your physician ? Past DM Medications: Trulicity- vomiting? Actos - swelling Victoza - vomiting Canagliflozin - self-stopped d/t news reports of ADEs Glipizide - pt felt it was ineffective ? ? Patient?denies?CP, SOB, CELAYA, blurred vision, dizziness or lightheadedness ? Patient?denies?symptoms of hypoglycemia (sweating, anxiety, palpitations, hunger, and tremor) ? Patient?denies?symptoms of hyperglycemia (polyuria, polydipsia, polyphagia) ? Patient?denies?potential medication adverse effects ? Preventative Medications: ? On ATIF/ARB:?No ? On Statin:?Yes ? On ASA:?No GLYCEMIC CONTROL: ? Glucometer present at visit: Yes CGM Report Summary of Professional CGM Findings: 1- CGM recoding is adequate for interpretation. 2- Average glucose is 182 mg/dL. 3- Total frequency of hypoglycemia: 2% 4- Nocturnal hypoglycemia was not noted. 5- Hyperglycemic episodes: 41% 6- Time in target range (70-180 mg/dL): 57% ROS: - Patient denies CP, SOB, CELAYA, blurred vision, dizziness or lightheadedness - Patient denies nausea, vomiting, diarrhea, abdominal pain - Patient denies symptoms of hypoglycemia (sweating, anxiety, palpitations, hunger, and tremor) - Patient denies symptoms of hyperglycemia (polyuria, polydipsia, polyphagia) - Patient denies potential medication adverse effects ? DIET/EXERCISE/SOCIAL Hx: ? Breakfast: poptarts and mixed nuts ? Lunch: sandwhich or bowl of cereal, eggs and toast ? Dinner: meat, potato and vegetables, apple or banana ? Does not snack at ? Water: black, coffee ? Exercise:?mostly sedentary at work, no scheduled activity? ? MEDICATIONS: ? Pill bottles?are not?present. ? Adherence:?denies?missed doses. ? Pharmacy:?[facility]? Rx coverage:?Cigna? ? Affordability:?no concerns? ? Diabetes supplies:?[employer]? ? Organization System:?none ACTIVE PROBLEM LIST Type 2 Diabetes Mellitus (Hcc) Hyperlipidemia Asthma Ckd (Chronic Kidney Disease) Stage 3, Gfr 30-59 Ml/Min ([facility]) PAST MEDICAL HISTORY Diagnosis Date - Asthma - MATILDA III (cervical intraepithelial neoplasia III) - CKD (chronic kidney disease) stage 3, GFR 30-59 ml/min ([facility]) - Hyperlipidemia - SCC (squamous cell carcinoma) - Type 2 diabetes mellitus (HCC) ALLERGIES Allergen Reactions - Actos [Pioglitazone] Swelling - Demoral [Meperidine] GI Upset Current Outpatient Medications Medication Sig - predniSONE (DELTASONE) 10 mg tablet Take 4 tabs daily x 3 days, then 3 tabs x 3 days, 2 tabs x 3 days, then 1 tab x3 days with food. - flash glucose scanning reader (FREESTYLE SAIRA 14 DAY READER) Inject 1 Each subcutaneously as directed. - flash glucose sensor (FREESTYLE SAIRA 14 DAY SENSOR) kit Use to check blood sugars 4 times daily - insulin lispro (HUMALOG KWIKPEN INSULIN) 100 unit/mL Inject 8 Units subcutaneously three times daily before meals plus sliding scale (add 1 units for every 50 mg/dL above 150 mg/dL). Maximum of 40 units/day - metFORMIN ER (GLUCOPHAGE XR) 500 mg 24 hr tablet Take 2 tablets by mouth daily with breakfast. - insulin degludec (TRESIBA) 200 unit/mL (3 mL) injection Inject 40 Units subcutaneously daily at bedtime. - simvastatin (ZOCOR) 20 mg tablet Take 1 tablet by mouth daily at bedtime. - PROAIR HFA 90 mcg/actuation inhaler Inhale 2 Puffs as instructed every 6 hours as needed for wheezing/shortness of breath. - fluticasone-salmeterol (ADVAIR DISKUS) 500-50 mcg/dose dsdv Inhale 1 Puff a (more content not included)... [facility] 07-12-2021 Note HNO ID: [id number] Author: Eloy Miles MD Service: ? Author Type: Physician Type: Progress Notes Filed: 07/12/2021 3:05 PM Note Text: Chief Complaint Patient presents with: Recheck HPI Glendy Pelaez is a 61 year old female who presents here today for a diabetic follow up Pt here today for a DM follow up. Notes that her is leaving his job at the [employer] and will be starting his new job at the [employer]. During this time she will be without insurance for 1 month. DM - Recently enrolled in DM Program, spoke with BRUCE and has a VV appt coming up with Rabia this afternoon. Had DM Eye Exam late in 2020, will have records faxed to office. Pt checking sugars TID, FBS ranging from 70-100. On current regimen of Metformin 500 mg 2 tabs po once daily, Humalog 10 units TID (since November) and Tresiba 52 units once daily (since November). Reports hypoglycemic episodes few times per week, symptoms occurring at 70. Denies any neuropathy symptoms. Has discussed reducing Tresiba when increasing Humalog, but she is unable to do this as her sugars are not controlled. Feels she is better controlled on her current regimen. CKD - Does take Lisinopril 5 mg daily for kidney protection. Denies any previous BP issues or checking her BP at home.States this is high today due to using ProAir inhaler daily, multiple times per day. Asthma - Requesting additional refill of Prednisone for a cough. She notes that this does help her asthma symptoms of congestion, tightness and cough. Using her rescue inhaler more (6 x today) in addition to Advair twice daily. Pt states that her symptoms are triggered when going outside. She has not cleared up since having Covid; does not wheeze but chest feels tight. Lipids - On current regimen of Simvastatin 20 mg once daily, denies any issues with medication. HM - Declines Flu shot. Declines Depression symptoms. Would like to postpone IFOBT until next visit when insurance is back in place Past medical history, appointments, medications, allergies reviewed. Previous Medical History PAST MEDICAL HISTORY Diagnosis Date - Asthma - MATILDA III (cervical intraepithelial neoplasia III) - CKD (chronic kidney disease) stage 3, GFR 30-59 ml/min ([facility]) - Hyperlipidemia - SCC (squamous cell carcinoma) - Type 2 diabetes mellitus (HCC) Previous Surgical History PAST SURGICAL HISTORY Procedure Laterality Date - PAST SURGICAL HISTORY OF N/A 1983 [place] Family History FAMILY HISTORY Problem Relation Age of Onset - Diabetes Mother - Diabetes Father - Diabetes Sister - Diabetes Brother - Heart Attack Maternal Grandmother - Heart Attack Maternal Grandfather - Dementia Paternal Grandmother - Parkinson?s Disease Paternal Grandfather - Diabetes Sister Patient Allergies ALLERGIES Allergen Reactions - Actos [Pioglitazone] Swelling - Demoral [Meperidine] GI Upset Current Medications Current Outpatient Medications on File Prior to Visit Medication Sig - predniSONE (DELTASONE) 20 mg tablet Take 2 tablets by mouth once daily. - flash glucose scanning reader (SeeSpace SAIRA 14 DAY READER) Inject 1 Each subcutaneously as directed. - flash glucose sensor (PhotozeenSTYLE SAIRA 14 DAY SENSOR) kit Use to check blood sugars 4 times daily - insulin lispro (HUMALOG KWIKPEN INSULIN) 100 unit/mL Inject 8 Units subcutaneously three times daily before meals plus sliding scale (add 1 units for every 50 mg/dL above 150 mg/dL). Maximum of 40 units/day - metFORMIN ER (GLUCOPHAGE XR) 500 mg 24 hr tablet Take 2 tablets by mouth daily with breakfast. - insulin degludec (TRESIBA) 200 unit/mL (3 mL) injection Inject 40 Units subcutaneously daily at bedtime. - simvastatin (ZOCOR) 20 mg tablet Take 1 tablet by mouth daily at bedtime. - PROAIR HFA 90 mcg/actuation inhaler Inhale 2 Puffs as instructed every 6 hours as needed for wheezing/shortness of breath. - fluticasone-salmeterol (ADVAIR DISKUS) 500-50 mcg/dose dsdv Inhale 1 Puff as instructed twice daily. Rinse and gargle mouth with water after use. - lisinopril (ZESTRIL, PRINIVIL) 5 mg tablet Take 1 tablet by mouth once daily. - insulin needles, DISPOSABLE, (BD INSULIN PEN NEEDLE UF) 31 gauge x 5/16 Use to inject insulin 4 times daily - acetaminophen (TYLENOL EXTRA STRENGTH) 500 mg tablet Take 2 tablets by mouth every 6 hours as needed for Pain. - [id number] (CALTRATE 600-D PLUS MINERALS) 600 mg calcium- 800 unit-50 mg tab Take 1 tablet by mouth once daily. - calcium Carbonate 300 mg, 750mg, (TUMS) 300 mg (750 mg) chewable tablet Take 1 tablet by mouth once daily as needed. - ferrous sulfate (IRON) 325 mg (65 mg iron) tablet Take 325 mg by mouth daily with breakfast. - cetirizine (ZYRTEC) 10 mg tablet Take 10 mg by mouth once daily. - omeprazole (PRILOSEC) 20 mg capsule Take 20 mg by mouth once daily. - Biotin 10,000 mcg cap Take 1 capsule by mouth once daily. - L. ac (more content not included)... [facility] 07-06-2021 Note HNO ID: [id number] Author: MARLENE Espino Service: ? Author Type: [place] Machine Feeder Type: Progress Notes Filed: 07/07/2021 4:37 PM Note Text: Patient reports that she was diagnosed 20 years ago with diabetes. Multiple family members have diabetes ie mother, step father, siblings Patient reports that she likes to eat 1 package of pop tarts every morning. Patient drinks coffee with her pop tarts. For lunch she likes to eat uzbek yogurt, peanut butter and cheese crackers, apples, carrots. Patient reports that she noticed that when she eats raisins her BS goes up greatly. Patient reports that she does not drink pop. Loves candy Patient reports that she feels like her downfall is that when she has a meal she has to follow that with something sweet. Sw and patient discussed possibility of meeting with dietitian and patient notes that she will see Stanislav-Diabetes Ed and then see if she feels dietitian meeting would be beneficial. Discussed exercise and patient reports that she does not exercise in the winter. In the summer, she walks at the campgrounds that they camp at for the summer. Biggest concerns for patient is in regards to high A1C and feels I have been stuck in the same place for the last 20 years regarding my diabetes. I don't understand how my mom and cousin have a low A1C and they eat cakes, candy, all the time. Patient reports that she is also concerned about how some diabetes medications can increase weight gain. Patient notes that she has been trying to watch her portions. Goals: Lower A1C score Lose 20 pounds Patient discussed that she could start to walk again at the [place] like she has in the past. No concerns noted regarding cost of medications, food, housing,transportation. Patient reports that she is looking forward to meeting with Stanislav-Diabetes Ed and [facility]ia[facility]Pharm. Patient reports that she likes to correspond via [employer]. [facility] 06-24-2021 Note HNO ID: [id number] Author: Eloy Miles MD Service: ? Author Type: Physician Type: Progress Notes Filed: 06/24/2021 4:17 PM Note Text: Chief Complaint Patient presents with: Sinus Problem: Congestion and cough HPI:This Team Access Model visit is a virtual encounter. It required patient-provider interaction for the medical decision making as documented below. Patient was offered a virtual/telemedicine appointment in lieu of an office visit due to recommendations to reduce patient exposure to COVID-19. Patient is aware of limitations of performing the visit without a face to face visit in the office setting and agrees. Pt completing a virtual visit today for c/o cold symptoms. Pt reports that she's been sick twice over the past couple weeks starting at [place]. She did receive the Moderna Booster shot on 06/16/21, felt tired for a day or so, but then was OK. Most recent symptoms started yesterday. She reports nasal drainage, cough and chills were yesterday. She now has sinus congestion, chest congestion and cough, chest tightness, no wheezing. Denies fever today, temp was 98.2. She states her drainage is yellow. Has used her inhaler for the cough. Denies any other symptoms or sick contacts. Travel intake - Symptoms of sinus infection, head/chest congestion, cough, yellow phlegm. No fever, no sob. Using inhalers for cough. Started yesterday. Sick week of adriana, week of . Had booster shot on 06/16/21 and started with drainage, chill and cough x 1 day ago. Past medical history, appointments, medications, allergies reviewed. Previous Medical History PAST MEDICAL HISTORY Diagnosis Date - Asthma - MATILDA III (cervical intraepithelial neoplasia III) - CKD (chronic kidney disease) stage 3, GFR 30-59 ml/min (HCC) - Hyperlipidemia - SCC (squamous cell carcinoma) - Type 2 diabetes mellitus (HCC) Previous Surgical History PAST SURGICAL HISTORY Procedure Laterality Date - PAST SURGICAL HISTORY OF N/A 1982 [place] Family History FAMILY HISTORY Problem Relation Age of Onset - Diabetes Mother - Diabetes Father - Diabetes Sister - Diabetes Brother - Heart Attack Maternal Grandmother - Heart Attack Maternal Grandfather - Dementia Paternal Grandmother - Parkinson?s Disease Paternal Grandfather - Diabetes Sister Patient Allergies ALLERGIES Allergen Reactions - Actos [Pioglitazone] Swelling - Demoral [Meperidine] GI Upset Current Medications Current Outpatient Medications on File Prior to Visit Medication Sig - flash glucose scanning reader (PhotozeenSTYLE SAIRA 14 DAY READER) Inject 1 Each subcutaneously as directed. - flash glucose sensor (FREESTYLE SAIRA 14 DAY SENSOR) kit Use to check blood sugars 4 times daily - insulin lispro (HUMALOG KWIKPEN INSULIN) 100 unit/mL Inject 8 Units subcutaneously three times daily before meals plus sliding scale (add 1 units for every 50 mg/dL above 150 mg/dL). Maximum of 40 units/day - metFORMIN ER (GLUCOPHAGE XR) 500 mg 24 hr tablet Take 2 tablets by mouth daily with breakfast. - insulin degludec (TRESIBA) 200 unit/mL (3 mL) injection Inject 40 Units subcutaneously daily at bedtime. - simvastatin (ZOCOR) 20 mg tablet Take 1 tablet by mouth daily at bedtime. - PROAIR HFA 90 mcg/actuation inhaler Inhale 2 Puffs as instructed every 6 hours as needed for wheezing/shortness of breath. - fluticasone-salmeterol (ADVAIR DISKUS) 500-50 mcg/dose dsdv Inhale 1 Puff as instructed twice daily. Rinse and gargle mouth with water after use. - lisinopril (ZESTRIL, PRINIVIL) 5 mg tablet Take 1 tablet by mouth once daily. - insulin needles, DISPOSABLE, (BD INSULIN PEN NEEDLE UF) 31 gauge x 5/16 Use to inject insulin 4 times daily - acetaminophen (TYLENOL EXTRA STRENGTH) 500 mg tablet Take 2 tablets by mouth every 6 hours as needed for Pain. - [id number] (CALTRATE 600-D PLUS MINERALS) 600 mg calcium- 800 unit-50 mg tab Take 1 tablet by mouth once daily. - calcium Carbonate 300 mg, 750mg, (TUMS) 300 mg (750 mg) chewable tablet Take 1 tablet by mouth once daily as needed. - ferrous sulfate (IRON) 325 mg (65 mg iron) tablet Take 325 mg by mouth daily with breakfast. - cetirizine (ZYRTEC) 10 mg tablet Take 10 mg by mouth once daily. - omeprazole (PRILOSEC) 20 mg capsule Take 20 mg by mouth once daily. - Biotin 10,000 mcg cap Take 1 capsule by mouth once daily. - L. acidophilus/dig enz cmb 5 (PROBIOTIC-DIGESTIVE ENZYMES ORAL) Take 1 tablet by mouth once daily. - Cranberry Extract 500 mg cap Take 1 capsule by mouth once daily. No current facility-administered medications on file prior to visit. Social History Social History Tobacco Use - Smoking status: Never Smoker - Smokeless tobacco: Never Used Vaping Use - Vaping Use: Never used Substance Use Topics - Alcohol use: Not Currently - Drug use: Never EXAM: There were no vitals taken for this visit. General (more content not included)... [facility] 2021 Note HNO ID: [id number] Author: Sarah Montiel OPPRTUNITY Service: ? Author Type: Rattling Machine Tender Type: Progress Notes Filed: 2021 10:57 AM Note Text: Radiology Service Progress Note PATIENT NAME: Glendy Pelaez DATE OF SERVICE: 2021 TIME: 10:56 AM PATIENT IDENTITY VERIFICATION COMPLETED USING TWO (2) IDENTIFIERS: Name and Date of confirmed by patient verbally. FALL SCREENING: Has the patient had 2 falls in the last year or 1 fall with injury or currently using an Ambulatory Assistive Device (Walker, Cane, Wheelchair, Crutches, etc.)? No PATIENT GENDER DATA: Female. status: : No status: NO. PATIENT RELEVANT IMPLANT DATA REVIEWED: Not Applicable RADIOLOGY DEPARTMENT: Mammography PERIPHERAL IV DATA: Not applicable SIGNED BY: Sarah Montiel OPPRTUNITY 2021 10:56 AM [facility] 02-16-2021 Note HNO ID: [id number] Author: Eloy Miles MD Service: ? Author Type: Physician Type: Progress Notes Filed: 02/16/2021 7:55 PM Note Text: Chief Complaint Patient presents with: Follow Up: diabetes HPI Glendy Pelaez is a 60 year old female who presents here today for follow up. Has been spending weekends at [employer], not eating as well there. Campground will close at the end of Feb. Declined flu shot today. No bowel, Gi, or urinary issues. GERD: Controlled with prilosec 20 mg daily. DM: Checking BS 3 x per day. FBS run 50, evenings runs 250. Is taking Metformin 500 mg 2 tablets daily, Tresiba 36 units daily, Humalog 8 units TID and sliding scale. Denies any hypoglycemia issues, she has adjusted her medication as she was having a lot of lows. Denies neuropathy issues. Using Lisinopril 5 mg daily for kidney protection. Has followed with Pharmacist Rabia Nolasco. Lipid: Taking Zocor 20 mg daily. Tries to watch diet, denies much exercise. Asthma: Is using Advair and ProAir inhalers. She states her asthma has been flared up more due to allergies. She is using Zyrtec daily for allergies but it doesn't seem to be working. Has not been using Flonase. Past medical history, appointments, medications, allergies reviewed. Previous Medical History PAST MEDICAL HISTORY Diagnosis Date - Asthma - MATILDA III (cervical intraepithelial neoplasia III) - CKD (chronic kidney disease) stage 3, GFR 30-59 ml/min ([facility]) - Hyperlipidemia - SCC (squamous cell carcinoma) - Type 2 diabetes mellitus (HCC) Previous Surgical History PAST SURGICAL HISTORY Procedure Laterality Date - PAST SURGICAL HISTORY OF N/A [address] [place] Family History FAMILY HISTORY Problem Relation Age of Onset - Diabetes Mother - Diabetes Father - Diabetes Sister - Diabetes Brother - Heart Attack Maternal Grandmother - Heart Attack Maternal Grandfather - Dementia Paternal Grandmother - Parkinson?s Disease Paternal Grandfather - Diabetes Sister Patient Allergies ALLERGIES Allergen Reactions - Actos [Pioglitazone] Swelling - Demoral [Meperidine] GI Upset Current Medications Current Outpatient Medications on File Prior to Visit Medication Sig - metFORMIN ER (GLUCOPHAGE XR) 500 mg 24 hr tablet Take 2 tablets by mouth daily with breakfast. - insulin degludec (TRESIBA) 200 unit/mL (3 mL) injection Inject 36 Units subcutaneously daily at bedtime. - insulin lispro (HUMALOG KWIKPEN INSULIN) 100 unit/mL Inject 8 Units subcutaneously three times daily before meals plus sliding scale (add 1 units for every 50 mg/dL above 150 mg/dL) - simvastatin (ZOCOR) 20 mg tablet Take 1 tablet by mouth daily at bedtime. - PROAIR HFA 90 mcg/actuation inhaler Inhale 2 Puffs as instructed every 6 hours as needed for Wheezing/Shortness of Breath. - fluticasone-salmeterol (ADVAIR DISKUS) 500-50 mcg/dose dsdv Inhale 1 Puff as instructed twice daily. Rinse and gargle mouth with water after use. - lisinopril (ZESTRIL, PRINIVIL) 5 mg tablet Take 1 tablet by mouth once daily. - flash glucose sensor (FREESTYLE SAIRA 14 DAY SENSOR) kit Use to check blood sugars 4 times daily - insulin needles, DISPOSABLE, (BD INSULIN PEN NEEDLE UF) 31 gauge x 5/16 Use to inject insulin 4 times daily - acetaminophen (TYLENOL EXTRA STRENGTH) 500 mg tablet Take 2 tablets by mouth every 6 hours as needed for Pain. - [id number] (CALTRATE 600-D PLUS MINERALS) 600 mg calcium- 800 unit-50 mg tab Take 1 tablet by mouth once daily. - calcium Carbonate 300 mg, 750mg, (TUMS) 300 mg (750 mg) chewable tablet Take 1 tablet by mouth once daily as needed. - ferrous sulfate (IRON) 325 mg (65 mg iron) tablet Take 325 mg by mouth daily with breakfast. - cetirizine (ZYRTEC) 10 mg tablet Take 10 mg by mouth once daily. - omeprazole (PRILOSEC) 20 mg capsule Take 20 mg by mouth once daily. - Biotin 10,000 mcg cap Take 1 capsule by mouth once daily. - L. acidophilus/dig enz cmb 5 (PROBIOTIC-DIGESTIVE ENZYMES ORAL) Take 1 tablet by mouth once daily. - Cranberry Extract 500 mg cap Take 1 capsule by mouth once daily. No current facility-administered medications on file prior to visit. Social History Social History Tobacco Use - Smoking status: Never Smoker - Smokeless tobacco: Never Used Vaping Use - Vaping Use: Never used Substance Use Topics - Alcohol use: Not Currently - Drug use: Never EXAM: BP 120/72 Pulse 78 Resp 16 Wt 70.9 kg (156 lb 6.4 oz) BMI 27.71 kg/m? General Appearance: Well appearing, alert, in no acute distress, well-hydrated, well nourished.. Lungs: Lungs clear to auscultation. No wheezing, rhonchi, rales.. Heart: RRR without murmur, gallop, or rubs. No ectopy. Health Maintenance List SPIROMETRY Never done HIV SCREENING Never done DTAP,TDAP,TD(1 - Tdap) Never done SHINGRIX VACCINE(1 of 2) Never done MAMMOGRAM due on 05/01/2021 INFLUENZA(1) due on 02/16/2021 (more content not included)... [facility] 11-22-2020 Note HNO ID: [id number] Author: Maryann Olmedo RN Service: ? Author Type: ? Type: Progress Notes Filed: 11/22/2020 7:37 PM Note Text: Patient returned call. Transferred to event host for appointment. Maryann Olmedo RN [facility] [facility] Note HNO ID: [id number] Author: Nubia Scales Ma Service: ? Author Type: ? Type: Progress Notes Filed: 11/22/2020 2:14 PM Note Text: POPULATION HEALTH NAVIGATION OUTREACH Action/FYI Pt outreach. 11/22/20-message left for pt to call back. Overdue for appt. Contact made with patient or family member? YES Pt identified by name and : YES Outreach Outcome/Action Unable to reach patient: Left message Reason for Outreach Care Gap or Scheduling/Wellness visits Payer: Payor: JOANNA / Plan: JOANNA OAP / Product Type: Open Access / Care Gap Reviewed:: Follow-up appointment Reminder: Reminder note to check Health Maintenance for items below Health Maintenance items due: SPIROMETRY Never done HIV SCREENING Never done DTAP,TDAP,TD(1 - Tdap) Never done SHINGRIX VACCINE(1 of 2) Never done Nubia Scales Ma November 22, 2020 2:13 PM [facility] 11-22-2020 Note Patient Outreach (FA MPWS) TRAVGLENDY ([id number]) 1960 F Date Time Provider Department 11/22/20 NUBIA SCALES) JUICEWS During your visit today, we recorded the following information about you: Nubia Scales Ma 11/22/2020 2:14 PM Signed POPULATION HEALTH NAVIGATION OUTREACH Action/FYI Pt outreach. 11/22/20-message left for pt to call back. Overdue for appt. Contact made with patient or family member? YES Pt identified by name and : YES Outreach Outcome/Action Unable to reach patient: Left message Reason for Outreach Care Gap or Scheduling/Wellness visits Payer: Payor: CIGNA / Plan: CIGNA OAP / Product Type: Open Access / Care Gap Reviewed:: Follow-up appointment Reminder: Reminder note to check Health Maintenance for items below Health Maintenance items due: SPIROMETRY Never done HIV SCREENING Never done DTAP,TDAP,TD(1 - Tdap) Never done SHINGRIX VACCINE(1 of 2) Never done Nubia Scales Ma November 22, 2020 2:13 PM Maryann Olmedo RN 11/22/2020 7:37 PM Signed Patient returned call. Transferred to event host for appointment. Maryann Olmedo RN Allergies As of Date: 11/22/2020 Noted Allergy Reaction ACTOS (PIOGLITAZONE) 01/27/2019 7 - Swelling DEMORAL (MEPERIDINE) 01/27/2019 8 - GI Upset Date Reviewed: 09/01/2020 Reviewed by: Nubia Scales Ma - Fully Assessed Reason for Visit: Appointment [[id number]] Cmt: care gap/outreach Prescriptions as of 11/22/2020 Sig: METFORMIN ER 500 MG TABLET,EX* Take 2 tablets by mouth daily* INSULIN DEGLUDEC (U-200) 200 * Inject 36 Units subcutaneousl* INSULIN LISPRO (U-100) 100 UN* Inject 8 Units subcutaneously* SIMVASTATIN 20 MG TABLET Take 1 tablet by mouth daily * PROAIR HFA 90 MCG/ACTUATION A* Inhale 2 Puffs as instructed * FLUTICASONE 500 MCG-SALMETERO* Inhale 1 Puff as instructed t* LISINOPRIL 5 MG TABLET Take 1 tablet by mouth once d* FREESTYLE SAIRA 14 DAY SENSOR* Use to check blood sugars 4 t* PEN NEEDLE, DIABETIC 31 GAUGE* Use to inject insulin 4 times* ACETAMINOPHEN 500 MG TABLET Take 2 tablets by mouth every* CALCIUM 600 MG-D3 800 UNIT-MA* Take 1 tablet by mouth once d* CALCIUM CARBONATE 300 MG (750* Take 1 tablet by mouth once d* FERROUS SULFATE 325 MG (65 MG* Take 325 mg by mouth daily wi* CETIRIZINE 10 MG TABLET Take 10 mg by mouth once temitope* OMEPRAZOLE 20 MG CAPSULE,KIERSTEN* Take 20 mg by mouth once temitope* BIOTIN 10,000 MCG CAPSULE Take 1 capsule by mouth once * PROBIOTIC-DIGESTIVE ENZYMES O* Take 1 tablet by mouth once d* CRANBERRY EXTRACT 500 MG CAPS* Take 1 capsule by mouth once * Problem List As Of Date 11/22/2020 Noted Resolved Type 2 diabetes mellitus (HCC) [E11.9] Hyperlipidemia [E78.5] Asthma [J45.909] CKD (chronic kidney disease) stage 3, GFR 30-59* Encounter Status:Closed by NUBIA SCALES MA on 11/22/20 [facility] Evaluation note Diagnosis Sinus congestion- Primary Other diseases of nasal cavity and sinuses documented in this encounter [facility] noteNo assessment information availableWMercy Health St. [facility] Work Phone: Reason for referral (narrative)No reason for referral information availableWMercy Health St. [facility] Hospital Work Phone: Summary Purpose Family History No Family History Records Found Relationship Condition Age at Onset Recorded Date/T fernando Unknown Family History?Diabetes Unknown Apr l 2019 10:44pm Family History?Diabetes Unknown Apri l 2019 10:44pm Relationship Condition Age at Onset Recorded Date/T fernando Unknown Family History?Diabetes Unknown Apr l 2019 9:44pm Family History?Diabetes Unknown Apri l 2019 9:44pm Advance Directives No Advanced Directives Records Found Advance Directive Response Recorded Date/ Time Living Will No October 03, 2019 10:57pm Power of Teacher Adult Education No October 02 10:57pm Advance Directive Response Recorded Date/ Time Living Will No October 03, 2019 9:57pm Power of Teacher Adult Education No October 02 9:57pm Chief Complaint and Reason for Visit Chief Complaint E ORDERS ALSO TYPE 2 DM Chief Complaint E ORDERS ALSO TYPE 2 DM SCREENING Chief Complaint SCREENING Chief Complaint EORDER Chief Complaint Admit Date Chronic kidney disease, stage 3 unspecif ied June 23, 2024 12:39pm SCREENING September 19, 2024 7:10 am Additional Source Comments INFORMATION SOURCE (unrecogn ized section and content) DATE CREATED AUTHOR 05/27/2018 [facility] ([place]) DATE CREATED AUTHOR AUTHOR'S ORGANIZ ATION 11/04/2021 [facility] DATE CREATED AUTHOR AUTHOR'S ORGANIZ ATION 10/02/2024 [facility] Source Comments (unrecognize d section and content) In the event this informatio n is protected by the Federal Confidentiality of Alcohol and Drug Abuse Patient Records regulations: The Federal rules restrict any use of the information to criminally investigate or prosecute any alcohol or drug abuse patient.[facility] Hospital[facility] the event this information is protected by the Federal Confidentiality of Alcohol and Drug Abuse Patient Records regulations: The Federal rules restrict any use of the information to criminally investigate or prosecute any alcohol or drug abuse patient.[facility] Hospital[facility] the event this information is protected by the Federal Confidentiality of Alcohol and Drug Abuse Patient Records regulations: The Federal rules restrict any use of the information to criminally investigate or prosecute any alcohol or drug abuse patient.[facility] HospitalIn the event this information is protected by the [facility] Confidentiality of Alcohol and Drug Abuse Patient Records regulations: The Federal rules restrict any use of the information to criminally investigate or prosecute any alcohol or drug abuse patient.[facility] Hospital[facility] the event this information is protected by the Federal Confidentiality of Alcohol and Drug Abuse Patient Records regulations: The Federal rules restrict any use of the information to criminally investigate or prosecute any alcohol or drug abuse patient.[facility] Care Teams (unrecognized sec tion and content) Performance Improvement Specialist Relationship Specialty Start Date End Date Eloy Miles MD [address] [place], [place] [id number] PCP - General Family Practice 05/28/19 Rabia Nolasco [facility] [address] [place], [place] [id number] Pharmacist Pharmacy 04/12/20 Performance Improvement Specialist Relationship Specialty Start Date End Date Eloy Miles MD [address] [place], [place] [id number] PCP - General Family Practice 05/28/19 Rabia Nolasco, [facility] [address] [facility] [place] [address] Pharmacist Pharmacy 04/12/20 Performance Improvement Specialist Relationship Specialty Start Date End Date Eloy Miles MD [address] [facility] [place] [address] PCP - General Family Practice 05/28/19 Rabia Nolasco, [facility] [address] [facility] [place] [address] Pharmacist Pharmacy 04/12/20 Performance Improvement Specialist Relationship Specialty Start Date End Date Eloy Miles MD [address] [facility] [place] [address] PCP - General Family Practice 05/28/19 Rabia Nolasco, [facility] [address] [facility] [place] [address] Pharmacist Pharmacy 04/12/20 Performance Improvement Specialist Relationship Specialty Start Date End Date Eloy Miles MD [address] [facility] [place] [address] PCP - General Family Practice 05/28/19 12/11/21 Rabia Nolasco, [facility] [address] [facility] [place] [address] Pharmacist Pharmacy 04/12/20 Team Status: Active Member Role Status Dates Dr. Eloy Miles MD Family Provider Active Dr. Jamin Amado MD Primary Care Provider Activ e Team Status: Inactive Member Role Status Dates Dr. Jamin Amado MD Primary Care Provider, Atte nding Provider Active Team Status: Inactive Member Role Status Dates Dr. Jamin Amado MD Primary Care Provider, Attending Provider, Referring Provider Active Team Status: Active Member Role Status Dates Dr. Thanh Amado MD Primary Care Provider Acti ve Team Status: Inactive Member Role Status Dates Dr. Thanh Amado MD Primary Care Provider Acti ve Start: June 09, 2024 End: June 09, 2024 Dr. Thanh Amado MD Attending Provider Active Start: June 09, 2024 End: June 09, 2024 Dr. Thanh Amado MD Referring Provider Active Start: June 09, 2024 End: June 09, 2024 Team Status: Inactive Member Role Status Dates Dr. Thanh Amado MD Primary Care Provider Acti ve Start: June 23, 2024 End: June 23, 2024 Dr. Thanh Amado MD Attending Provider Active Start: June 23, 2024 End: June 23, 2024 Dr. Thanh Amado MD Referring Provider Active Start: June 23, 2024 End: June 23, 2024 Team Status: Inactive Member Role Status Dates Dr. Thanh Amado MD Primary Care Provider Acti ve Start: September 19, 2024 End: September 19, 2024 Dr. Thanh Amado MD Attending Provider Active Start: September 19, 2024 End: September 19, 2024 Dr. Thanh Amado MD Referring Provider Active Start: September 19, 2024 End: September 19, 2024 Team Status: Active Member Role Status Dates Dr. Thanh Amado MD Primary Care Provider Acti ve Start: September 23, 2024 Shen Merrill NP, CLINICAL SAFETY MANAGER-C Attending Provider Active Start: September 23, 2024 Team Status: Inactive Member Role Status Dates Dr. Thanh Amado MD Primary Care Provider Acti ve Start: September 23, 2024 End: September 23, 2024 Shen Merrill CLINICAL SAFETY MANAGER, CLINICAL SAFETY MANAGER-C Attending Provider Active Start: September 23, 2024 End: September 23, 2024 Reason for Visit (unrecogniz ed section and content) Reason Comments Cough cough, sinus and CELAYA x 8 days Reason Comments Diabetes Ed Follow Up Goals (unrecognized section and content) Goals may be documented in a n alternate sectionGoals may be documented in an alternate sectionGoals may be documented in an alternate sectionGoals may be documented in an alternate sectionGoals may be documented in an alternate sectionGoals may be documented in an alternate sectionGoals may be documented in an alternate section FOR RECORDS PERTAINING TO PATIENTS WHO ARE OR HAVE BEEN ENROLLED IN A CHEMICAL DEPENDENCY/SUBSTANCEABUSE PROGRAM, SOME INFORMATION MAY BE OMITTED. This clinical summary was aggregated from multiple sources. Caution should be exercised in using it in the provision of clinical care. This summary normalizes information from multiple sources, and as a consequence, information in this document may materially change the coding, format and clinical context of patient data. In addition, data may be omitted in some cases. CLINICAL DECISIONS SHOULD BE BASED ON THE PRIMARY CLINICAL RECORDS. [employer] [facility]. provides no warranty or guarantee of the accuracy or completeness of information in this document.
[2025-05-06 09:01] LABS: Hematocrit 36.4 % (37-47); Hemoglobin 11.8 g/dL (12.0-15.0); Immature Granulocytes Count 0.020 X10^3/uL (0.0-0.0); Mean Corp Hgb Conc 32.4 g/dL (32-36); Mean Corpuscular Volume 94.1 fL (81-99); Mean Platelet Vol. 11.2 fl (6.2-12.0); NRBC Flagged by Analyzer 0 % (0-5); Platelet Count 218 K/mm3 (150-450); RBC Distribution Width CV 11.9 % (11.6-14.6); RBC Distribution Width SD 41.1 fl (35.1-43.9); Red Blood Count 3.87 M/mm3 (4.2-5.4); White Blood Count 8.3 K/mm3 (4.4-11.0)
[2025-05-06 09:38] LABS: PTHIN 77 pg/mL (11-61)
[2025-05-06 09:53] LABS: AST(SGOT) 19 U/L (<=31); Alanine Aminotransfer ALT/SGPT 15 U/L (<=34); Albumin, Serum 4.4 g/dL (3.4-4.8); Alkaline Phosphatase 83 U/L (35-104); Anion Gap 10 (5-15); BUN 19 mg/dL (4-19); BUN/Creat Ratio 15.3 RATIO (10-20); Calcium,Total 9.4 mg/dL (7.6-11.0); Carbon Dioxide 25.4 mmol/L (21.0-32.0); Chloride 101 mmol/L (98-108); Globulin 2.9 g/dL (2.2-4.2); Glucose 131 mg/dL (70-99); Iron 60 ug/dL (50-170); Potassium 4.6 mmol/L (3.3-5.1); Troponin T High Sensitivity 15 ng/L (<=14)
[2025-05-06 10:21] LABS: Cholesterol 133 mg/dL (<=200); Low Density Lipoprotein Calc. 65 mg/dL; Triglycerides 109 mg/dL; Very Low Density Lipoprotein 22 mg/dL (5-40); cholesterol:hdl ratio screen 2.77
[2025-05-06 10:22] LABS: Vitamin B12 2882 pg/mL (180-914); Vitamin D,25 Hydroxy 30.0 ng/mL (30-100)
[2025-05-07 14:09] LABS: PROEL- A/G Ratio 1.3 (0.7-1.7); PROEL- Albumin 3.8 g/dL (2.9-4.4); PROEL- Alpha-1 Globulin 0.2 g/dL (0.0-0.4); PROEL- Alpha-2 Globulin 0.9 g/dL (0.4-1.0); PROEL- Beta Globulin 1.0 g/dL (0.7-1.3); PROEL- Gamma Globulin 0.8 g/dL (0.4-1.8); PROEL- Globulin, Total 2.9 g/dL (2.2-3.9); PROEL- TOTAL PROTEIN 6.7 g/dL (6.0-8.5); PROEL-M-Spike Not Observed g/dL (Not Observed)
[2025-05-08 08:10] LABS: ANTINUCLEAR ANTIBODIES DIRECT Negative (Negative)
== END | disposition home or self-care (01) ==
PROVIDERS: PCP Family Medicine; Referring Provider Family Medicine; Visit Provider Family Medicine
DX: R07.9 Chest pain, unspecified (principal); E11.22 Type 2 diabetes mellitus with diabetic chronic kidney disease
CPT/HCPCS: 36415; 80053; 80061; 82306; 82607; 83036; 83540; 83970; 84165; 84443; 84484; 85025; 86038; 93005

== ENCOUNTER → 2025-05-12 | Outpatient (CLI) | payer OTHER, SELFPAY ==
--- OUTSIDE RECORDS SUMMARY | 2025-05-12 06:15 | XMS RPT_ITS | CCD ---
Author Organization [facility] ion Partnership [facility] Care Team Providers Care Store Shopper Name Role Phone Janet Mejia Unavailable Unavailable LIZZ CAMARILLO Unavailable Unavailable Janet Mejia Unavailable Unavailable LIZZ CAMARILLO Unavailable Unavailable Eloy Miles MD Primary Care Provider [phone] Leia Rabia hoyt Unavailable Eloy Miles MD Primary Care Provider Dr. Thanh Amado MD Primary Care Provider Dr. Thanh Amado MD Attending Provider [phone] Dr. Thanh Amado MD Referring [facility] Shen CHINCHILLA Attending Provider Thanh Amado Attending Unavailable Thanh Amado Referring Unavailable Thanh Amado Primary Care Unavailable Thanh Amado Attending Unavailable Thanh Amado Referring Unavailable Thanh Amado Primary Care Unavailable Thanh Amado Referring Unavailable Thanh Amado Primary Care Unavailable Thanh Amado Attending Unavailable Thanh Amado [facility] Attending Unavailable Allergies Allergy Classification Reported Allergen(s) Allergy Type Date of Onset Reaction(s) Facility (12 sources) Meperidine Drug Allergy 01-27-2019 GI Upset [facility] (5 sources) pioglitazone Drug Allergy 01-27-2019 Swelling [facility] (1 source) Meperidine Drug Allergy 10-03-2019 [facility] Repository Medications Current Medications Medication Drug [...] Comment on above: [facility] for 5 days. [...] Comment on above: Take 1 capsule by [facility] three times daily as needed for cough [...] Comment on above: Take 2 tablets by [facility] daily with breakfast. predniSONE 20 mg oral tablet (2 sources) Start: 2 End: 2 take 2 tablets by mouth once daily predniSONE (DELTASONE) 20 mg tablet Take 2 tablets by mouth once daily for 4 days. 8 tablet 0 11/01/2021 11/05/2021 Active Comment on above: Take 2 tablets by [facility] once daily for 4 days. simvastatin 20 [...] every 6 hours as needed for Pain. [id number] 200 actuat albuterol 0.09 mg/actuat metered dose [...] take 1 tablet by mouth once daily [id number] op-marcelo-bor (CALTRATE 600-D PLUS MINERALS) 600 mg [...] on above: Take 1 capsule by mo [facility] once daily. ferrous sulfate 325 mg [...] polyneuropathy, with long-term current use of insulin ([facility]) Inject 1 Each subcutaneously as directed. 1 Each 0 04/08/2021 Active Comment on above: Inject 1 Each subcut aneously as directed. flash glucose sensor (FREESTYLE SAIRA 14 DAY SENSOR) kit (5 sources) Start: 10-25-2021 flash glucose sensor (FREESTYLE SAIRA 14 DAY SENSOR) kit Indications: Type 2 diabetes mellitus with diabetic polyneuropathy, with long-term current use of insulin ([facility]) Use to check blood sugars 4 times [...] Start: 02-16-2021 take 1 puff(s) by mo [facility] twice daily fluticasone-salmeterol (ADVAIR DISKUS) 500-50 [...] CT/NG/T RF HPVon ADEQ Comment Normal . [facility] Comment on above: Order Comment: Speci men Comment: [id number] Specimen Comment: Source.............Cervix;Endocervix Specimen Comment: No. of containers..01 ThinPrep Vial Result Comment: Sati sfactory for evaluation. Endocervical and/or squamous metaplastic cells (endocervical component) are present. Performed By: #### L 7400.0325 #### [facility] [address] [place], [place], [id number] CHLAMY,NUC ACID Negative Normal Negative [facility] Comment on above: Order Comment: Speci men Comment: [id number] Specimen Comment: Source.............Cervix;Endocervix Specimen Comment: No. of containers..01 ThinPrep Vial Performed By: #### L 7400.0325 #### [facility] [address] [place], [address] COMM [address] Normal . [facility] Comment on above: Order Comment: Speci men Comment: [id number] Specimen Comment: Source.............Cervix;Endocervix Specimen Comment: No. of containers..01 ThinPrep Vial Performed By: #### L 7400.0325 #### [facility] [address] [place], [address] COMMENT Comment Normal . [facility] Comment on above: Order Comment: Speci men Comment: [id number] Specimen Comment: Source.............Cervix;Endocervix Specimen Comment: No. of containers..01 ThinPrep Vial Result Comment: This liquid based ThinPrep(R) pap test was screened with the use of an image guided system. Performed By: #### L 7400.0325 #### [facility] [address] [place], [place], [address] DIAG Comment Normal . [facility] Comment on above: Order Comment: Speci men Comment: [id number] Specimen Comment: Source.............Cervix;Endocervix Specimen Comment: No. of containers..01 ThinPrep Vial Result Comment: NEGA TIVE FOR INTRAEPITHELIAL LESION OR MALIGNANCY. THIS SPECIMEN WAS RESCREENED PART OF OUR PROTOZOOLOGY TEACHER PROGRAM. Performed By: #### L 7400.0325 #### [facility] [address] [place], [address] GC BY NUC ACID Negative Normal Negative [facility] Comment on above: Order Comment: Speci men Comment: [id number] Specimen Comment: Source.............Cervix;Endocervix Specimen Comment: No. of containers..01 ThinPrep Vial Performed By: #### L 7400.0325 #### [facility] [address] [place], [address] PAPSMR Comment Normal . [facility] Comment on above: Order Comment: Speci men Comment: [id number] Specimen Comment: Source.............Cervix;Endocervix Specimen Comment: No. of [...] occur. Performed By: #### L 7400.0325 #### [facility] [address] [place], [address] PERFORM Comment Normal . [facility] Comment on above: Order Comment: Speci men Comment: [id number] Specimen Comment: Source.............Cervix;Endocervix Specimen Comment: No. of containers..01 ThinPrep Vial Result Comment: Antonella Cardozo, Information Assoc (ASCP) Performed By: #### L 7400.0325 #### [facility] [address] [place], [place], [address] QC REV Comment Normal . [facility] Comment on above: Order Comment: Speci men Comment: [id number] Specimen Comment: Source.............Cervix;Endocervix Specimen Comment: No. of containers..01 ThinPrep Vial Result Comment: Stephania Caballero, Regional Office Coordinator (ASCP) Performed By: #### L 7400.0325 #### [facility] [address] [place], [place], [address] TRICH VAG FLIP Negative Normal Negative [facility] Comment on above: Order Comment: Speci men Comment: [id number] Specimen Comment: Source.............Cervix;Endocervix Specimen Comment: No. of containers..01 ThinPrep Vial Result Comment: Perf ormed at: [facility] - [address] [id number] [employer]: Frances Hoang MD, Phone: [phone] Performed at: [facility] [employer] [address] [place], [place] [id number] [employer]: Carlos Smith MD, Phone: [phone] Performed at: =G - [facility] [id number] [employer]: Frances Hoang MD, Phone: [phone] Performed By: #### L 7400.0325 #### [facility] [address] [place], [address] Breast imaging reportOrdered By: Rosalva Aguanunu on 09-19-2024 Study report [facility] Imaging Services [address] [place], [place] [id number] SCRN MAMM (CAD)W/NOLA BILAT MR#: [id number] Acct: [id number] Name: GLENDY PELAEZ Rep #: [id number] : 1960 F 64 From: Karen Che MD PCP: Dr. Thanh Amado MD Status: REG CLI Study:SCRN MAMM (CAD)W/NOLA BILAT Date of Exa m: 09/19/24 Exam# [id number] Ordering Dr: Ramon Amado MD EXAM: SCRN [...] be mailed to the patient. Reading Location: [facility] CC: Dr. Thanh Amado MD ~ Matrix Plater: Signed [facility] SCRN MAMM (CAD)W/NOLA BILATo n 09-19-2024 SCRN MAMM (CAD)W/NOLA BILAT [facility] Imaging Services [address] [place], [place] [id number] SCRN MAMM (CAD)W/NOLA BILAT MR#: [id number] Acct: [id number] Name: GLENDY PELAEZ Rep #: [id number] : 1960 F 64 From: Rosalva Che MD PCP: Dr. Thanh Amado MD Status: REG CLI Study: SCRN MAMM (CAD)W/NOLA BILAT Date of Exam: 10/10 Exam# [id number] Ordering Dr: Thanh Amado EXAM: SCRN MAMM [...] be mailed to the patient. Reading Location: [facility] CC: Dr. Thanh Amado MD Matrix Plater: Signed Normal [facility] Kidney and Bladderon 025 Kidney and Bladder [facility] Imaging Services [address] [place], [place] [address] Kidney and Bladder MR#: [id number] Acct: [id number] Name: GLENDY PELAEZ Rep #: [id number] : 1960 F 64 From: Alex Rod MD PCP: Dr. Thanh Amado MD Status: REG CLI Study: Kidney and Bladder Date of Exam: 06/23/24 Exam# [id number] Ordering Dr: Thanh Amado [id number] STUDY: RENAL ULTRASOUND - COMPLETE REASON FOR [...] EST , CC: Dr. Thanh Amado MD Matrix Plater: Signed Normal [facility] [id number] DOrdered By: Ramon Amado on 06-09-2024 Vitamin D 25-Hydroxy 29.7 ng/mL [facility] Comment on above: Vitamin D 25(OH) Sta tus Range Deficiency <20 ng/mL (50nmol/L) Insufficiency 20 - 30 ng/mL (50 - 75 nmol/L) Sufficiency 30 - 100 ng/mL (75 - 250 nmol/L) Toxicity >100 ng/mL (>250 nmol/L) Albumin to globulin ratioOrd ered By: Thanh Amado on 06-09-2024 Albumin/Globulin [Mass ratio] 0.9 {ratio} 0.9-2.4 [facility] Bilirubin, totalOrdered By: Thanh Amado on 06-09-2024 Bilirubin [Mass/Vol] 0.50 mg/dL 0.20-1.00 [facility] Comment on above: For patients on eltr ombopag therapy, use of Dimension [place] TBIL is not recommended. Blood urea nitrogen (BUN)/cr eatinine ratioOrdered By: Thanh Amado on 06-09-2024 Urea nitrogen/Creatinine [Mass ratio] 10.8 mg/mg 10-20 [facility] Carbon dioxide measurementOr dered By: Thanh Amado on 06-09-2024 CO2 [Moles/Vol] 26.0 mmol/L 21.0-32.0 [facility] Chloride measurementOrdered By: Thanh Amado on 06-09-2024 Chloride [Moles/Vol] 108 mmol/L High 98-107 [facility] Comprehensive Metabolic Prof ilon 06-09-2024 Albumin [Mass/Vol] 3.4 g/dL Normal 3.2-5.0 [facility] Comment on above: Performed By: #### L 501.9547, L503.0105, L506.1000, L500.4050, L500.4100 #### [facility] [address] [place], [address] Albumin/Globulin [Mass ratio] 0.9 {ratio} Normal 0.9-2.4 [facility] Comment on above: Performed By: #### L 501.9520, L503.0105, L506.1000, L500.4050, L500.4100 #### [facility] [address] [place], [address] ALK P 89 U/L Normal 45-117 [facility] Comment on above: Performed By: #### L 501.9520, L503.0105, L506.1000, L500.4050, L500.4100 #### [facility] [address] [place], [address] ALT [Catalytic activity/Vol] 21 U/L Normal 13-56 [facility] Comment on above: Performed By: #### L 501.9520, L503.0105, L506.1000, L500.4050, L500.4100 #### [facility] [address] [place], [address] AST [Catalytic activity/Vol] 16 U/L Normal 15-37 [facility] Comment on above: Performed By: #### L 501.9520, L503.0105, L506.1000, L500.4050, L500.4100 #### [facility] [address] [place], [address] Bilirubin [Mass/Vol] 0.50 mg/dL Normal 0.20-1.00 [facility] Comment on above: Result Comment: For patients on eltrombopag therapy, use of Dimension [place] TBIL is not recommended. Performed By: #### L 501.9520, L503.0105, L506.1000, L500.4050, L500.4100 #### [facility] [address] [place], [address] BUN/CRE 10.8 RATIO Normal 10-20 [facility] Comment on above: Performed By: #### L 501.9520, L503.0105, L506.1000, L500.4050, L500.4100 #### [facility] [address] [place], [address] CA,Total 9.6 mg/dL Normal 8.5-10.1 [facility] Comment on above: Performed By: #### L 501.9520, L503.0105, L506.1000, L500.4050, L500.4100 #### [facility] [address] [place], [address] Chloride [Moles/Vol] 108 mmol/L High 98-107 [facility] Comment on above: Performed By: #### L 501.9520, L503.0105, L506.1000, L500.4050, L500.4100 #### [facility] [address] [place], [address] CO2 [Moles/Vol] 26.0 mmol/L Normal 21.0-32.0 [facility] Comment on above: Performed By: #### L 501.9520, L503.0105, L506.1000, L500.4050, L500.4100 #### [facility] [address] [place], [address] Creatinine [Mass/Vol] 1.67 mg/dL High 0.55-1.02 [facility] Comment on above: Result Comment: The validity of the calculated GFR GFRAA in patients over 70 years has not been determined. Clinical correlation is essential. Performed By: #### L 501.9520, L503.0105, L506.1000, L500.4050, L500.4100 #### [facility] [address] [place], [address] EST GFR - AA 40 mL/min Low >60 [facility] Comment on above: Result Comment: Afri can Pakistani GFR Calc Performed By: #### L 501.9520, L503.0105, L506.1000, L500.4050, L500.4100 #### [facility] [address] [place], [address] GAP 5 Normal 5-15 [facility] Comment on above: Performed By: #### L 501.9520, L503.0105, L506.1000, L500.4050, L500.4100 #### [facility] [address] [place], [address] GFR/1.73 sq M.predicted among non-blacks MDRD (S/P/Bld) [Vol rate/Area] 33 mL/min/{1.73_m2} Low >60 [facility] Comment on above: Result Comment: Non- GFR Calc Performed By: #### L 501.9520, L503.0105, L506.1000, L500.4050, L500.4100 #### [facility] [address] [place], [address] Globulin (S) [Mass/Vol] 3.8 g/dL Normal 2.2-4.2 [facility] Comment on above: Performed By: #### L 501.9520, L503.0105, L506.1000, L500.4050, L500.4100 #### [facility] [address] [place], [address] Glucose [Mass/Vol] 102 mg/dL Normal 74-106 [facility] Comment on above: Result Comment: Fast ing Glucose result from 100 to 125 mg/dL suggests IMPAIRED HOMEOSTASIS per A.D.A. criteria. Performed By: #### L 501.9520, L503.0105, L506.1000, L500.4050, L500.4100 #### [facility] [address] [place], [address] Potassium [Moles/Vol] 5.0 mmol/L Normal 3.5-5.1 [facility] Comment on above: Performed By: #### L 501.9520, L503.0105, L506.1000, L500.4050, L500.4100 #### [facility] [address] [place], [address] Sodium [Moles/Vol] 140 mmol/L Normal 136-145 [facility] Comment on above: Performed By: #### L 501.9520, L503.0105, L506.1000, L500.4050, L500.4100 #### [facility] [address] [place], [address] T PROT 7.2 g/dL Normal 6.4-8.2 [facility] Comment on above: Performed By: #### L 501.9520, L503.0105, L506.1000, L500.4050, L500.4100 #### [facility] [address] [place], [address] Urea nitrogen [Mass/Vol] 18 mg/dL Normal 7-18 [facility] Comment on above: Performed By: #### L 501.9520, L503.0105, L506.1000, L500.4050, L500.4100 #### [facility] [address] [place], [address] Estimated glomerular filtrat ion rate (GFR) AmericanOrdered By: Thanh Amado on 06-09-2024 Estimated GFR (MDRD) Amer 40 mL/min Low >60 [facility] Comment on above: GFR Calc Glomerular filtration rate ( GFR) estimationOrdered By: Thanh Amado on 06-09-2024 Estimated GFR (MDRD) Non-Af Amer 33 mL/min Low >60 [facility] Comment on above: Non- GFR Calc Glucose measurementOrdered B y: Thanh Amado on 06-09-2024 Glucose [Mass/Vol] 102 mg/dL 74-106 [facility] Comment on above: Fasting Glucose resu lt from 100 to 125 mg/dL suggests IMPAIRED HOMEOSTASIS per A.D.A. criteria. High density lipoprotein (HD L) measurementOrdered By: Thanh Amado on 06-09-2024 Cholesterol in HDL [Mass/Vol] 53 mg/dL >40 [facility] Comment on above: The drugs N-Acetylcy steine and Metamizole may falsely depress this assay. Reference Range HDL <40 mg/dL Low HDL Cholesterol HDL >or= 60 mg/dL High HDL Cholesterol Laboratory - Chemistry and C hemistry - challengeOrdered By: Thanh Amado on 06-09-2024 AST [Catalytic activity/Vol] 16 U/L 15-37 [facility] Lipid Profileon 06-09-2024 Cholesterol [Mass/Vol] 122 mg/dL Normal 200 [facility] Comment on above: Result Comment: <200 mg/dL Desirable 200-240 mg/dL Borderline >240 mg/dL High Risk Performed By: #### L 501.9520, L503.0105, L506.1000, L500.4050, L500.4100 #### [facility] [address] [place], [address] Cholesterol in HDL [Mass/Vol] 53 mg/dL Normal [facility] Comment on above: Result Comment: The drugs N-Acetylcysteine and Metamizole may falsely depress this assay. Reference Range HDL <40 mg/dL Low HDL Cholesterol HDL >or= 60 mg/dL High HDL Cholesterol Performed By: #### L 501.9520, L503.0105, L506.1000, L500.4050, L500.4100 #### [facility] [address] [place], [address] Cholesterol in LDL [Mass/Vol] 46 mg/dL Normal 0-130 [facility] Comment on above: Performed By: #### L 501.9520, L503.0105, L506.1000, L500.4050, L500.4100 #### [facility] [address] [place], [address] Cholesterol in VLDL [Mass/Vol] 23 mg/dL Normal 5-40 [facility] Comment on above: Performed By: #### L 501.9520, L503.0105, L506.1000, L500.4050, L500.4100 #### [facility] [address] [place], [address] Triglyceride [Mass/Vol] 115 mg/dL Normal [facility] Comment on above: Result Comment: The drugs N-Acetylcysteine and Metamizole may falsely depress this assay. Serum Triglycerides Reference Interval Normal <150 mg/dL Borderline high 150 - 199 mg/dL High 200 - 499 mg/dL Very High > or = 500 mg/dL Performed By: #### L 501.9520, L503.0105, L506.1000, L500.4050, L500.4100 #### [facility] [address] [place], [address] Low density lipoprotein (LDL ) cholesterol measurementOrdered By: Thanh Amado on 06-09-2024 Cholesterol in LDL [Mass/Vol] 46 mg/dL 0-130 [facility] Potassium measurementOrdered By: Thanh Amado on 06-09-2024 Potassium [Moles/Vol] 5.0 mmol/L 3.5-5.1 [facility] Serum anion gap measurementO rdered By: Thanh Amado on 06-09-2024 Anion gap [Moles/Vol] 5 mmol/L 5-15 [facility] Serum globulin measurementOr dered By: Thanh Amado on 06-09-2024 Globulin (S) [Mass/Vol] 3.8 g/dL 2.2-4.2 [facility] Serum or plasma alanine ribeiro otransferase (ALT) measurementOrdered By: Thanh Amado on 06-09-2024 ALT [Catalytic activity/Vol] 21 U/L 13-56 [facility] Serum or plasma albumin norris urement (mass/volume)Ordered By: Thanh Amado on 06-09-2024 Albumin [Mass/Vol] 3.4 g/dL 3.2-5.0 [facility] Serum or plasma alkaline mica sphatase measurementOrdered By: Thanh Amado on 06-09-2024 ALP [Catalytic activity/Vol] 89 U/L 45-117 [facility] Serum or plasma calcium norris urement (mass/volume)Ordered By: Thanh Amado on 06-09-2024 Calcium [Mass/Vol] 9.6 mg/dL 8.5-10.1 [facility] Serum or plasma cholesterol measurement (mass/volume)Ordered By: Thanh Amado on 06-09-2024 Cholesterol [Mass/Vol] 122 mg/dL <200 [facility] Comment on above: <200 mg/dL Desirable 200-240 mg/dL Borderline >240 mg/dL High Risk Serum or plasma creatinine m easurement (mass/volume)Ordered By: Thanh Amado on 06-09-2024 Creatinine [Mass/Vol] 1.67 mg/dL High 0.55-1.02 [facility] Comment on above: The validity of the calculated GFR & GFRAA in patients over 70 years has not been determined. Clinical correlation is essential. Serum or plasma urea nitroge n measurement (mass/volume)Ordered By: Thanh Amado on 06-09-2024 Urea nitrogen [Mass/Vol] 18 mg/dL 7-18 [facility] Sodium levelOrdered By: Alice Amado on 06-09-2024 Sodium [Moles/Vol] 140 mmol/L 136-145 [facility] TSH QnOrdered By: Jamin Amado on 06-09-2024 Thyroid Stimulating Hormone (TSH) 1.990 uIU/mL 0.358-3.[address] [facility] Thyroid Stim Hormone (TSH)on 06-09-2024 TSH 1.990 uIU/mL Normal 0.358-3.[address] [facility] Comment on above: Performed By: #### L 501.9520, L503.0105, L506.1000, L500.4050, L500.4100 #### [facility] [place], [address] Total proteinOrdered By: Kelly Amado on 06-09-2024 Protein [Mass/Vol] 7.2 g/dL 6.4-8.2 [facility] Triglycerides measurementOrd ered By: Thanh Amado on 06-09-2024 Triglyceride [Mass/Vol] 115 mg/dL <199 [facility] Comment on above: The drugs N-Acetylcy steine and Metamizole may falsely depress this assay.Serum Triglycerides Reference Interval Normal <150 mg/dL Borderline high 150 - 199 mg/dL High 200 - 499 mg/dL Very High > or = 500 mg/dL Very low density lipoprotein (VLDL) cholesterol measurementOrdered By: Thanh Amado on 06-09-2024 VLDL Cholesterol 23 mg/dL 5-40 [facility] Vitamin B12on 06-09-2024 Cobalamin (Vitamin B12) [Mass/Vol] 1169 pg/mL High 211-911 [facility] Comment on above: Performed By: #### L 501.9520, L503.0105, L506.1000, L500.4050, L500.4100 #### [facility] [address] [place], [place], [address] Vitamin B12 measurementOrder ed By: Thanh Amado on 06-09-2024 Cobalamin (Vitamin B12) [Mass/Vol] 1169 pg/mL High 211-911 [facility] Vitamin D,25 Hydroxyon 06-09 Vitamin D 25-OH 29.7 ng/mL Normal [facility] Comment on above: Result Comment: Shayla min D 25(OH) Status Range Deficiency <20 ng/mL (50nmol/L) Insufficiency 20 - 30 ng/mL (50 - 75 nmol/L) Sufficiency 30 - 100 ng/mL (75 - 250 nmol/L) Toxicity >100 ng/mL (>250 nmol/L) Performed By: #### L 501.9520, L503.0105, L506.1000, L500.4050, L500.4100 #### [facility] [address] [place], [address] Basophil percentageOrdered B y: Jamin Amado on 06-06-2023 Chloride [Moles/Vol] 108 mmol/L 98-107 [facility] Glucose [Mass/Vol] 91 mg/dL 74-106 [facility] Potassium [Moles/Vol] 5.1 mmol/L 3.5-5.1 [facility] Sodium [Moles/Vol] 139 mmol/L 136-145 [facility] Laboratory - Chemistry and C hemistry - challengeOrdered By: Jamin Amado on 06-06-2023 CO2 [Moles/Vol] 28.0 mmol/L 21.0-32.0 [facility] Cobalamin (Vitamin B12) [Mass/Vol] 642 pg/mL 211-911 [facility] Urea nitrogen/Creatinine [Mass ratio] 9.6 mg/mg 10- [facility] No Panel InformationOrdered By: Jamin Amado on 06-06-2023 Estimated GFR (MDRD) Amer 51 mL/min >60 [facility] Comment on above: GFR Calc Estimated GFR (MDRD) Non-Af Amer 42 mL/min >60 [facility] Comment on above: Non- GFR Calc Serum or plasma calcium norris urement (mass/volume)Ordered By: Jamin Amado on 06-06-2023 Calcium [Mass/Vol] 9.7 mg/dL 8.5-10.1 [facility] Serum or plasma creatinine m easurement (mass/volume)Ordered By: Jamin Amado on 06-06-2023 Creatinine [Mass/Vol] 1.35 mg/dL 0.55-1.02 [facility] Comment on above: The validity of the calculated GFR & GFRAA in patients over 70 years has not been determined. Clinical correlation is essential. Serum or plasma urea nitroge n measurement (mass/volume)Ordered By: Jamin Amado on 06-06-2023 Urea nitrogen [Mass/Vol] 13 mg/dL 7-18 [facility] Thin prep Papanicolaou smear with manual screeningOrdered By: Jamin Amado on 06-06-2023 Thin prep Papanicolaou smear with manual screening 3 5-15 [facility] Basophil percentageOrdered B y: Jamin Amado on 03-12-2023 Bilirubin [Mass/Vol] 0.40 mg/dL 0.20-1.00 [facility] Comment on above: For patients on eltr ombopag therapy, use of Dimension [place] TBIL is not recommended. Chloride [Moles/Vol] 107 mmol/L 98-107 [facility] Cholesterol [Mass/Vol] 159 mg/dL <200 [facility] Comment on above: <200 mg/dL Desirable 200-240 mg/dL Borderline >240 mg/dL High Risk Glucose [Mass/Vol] 34 mg/dL 74-106 [facility] Comment on above: Glucose result less than 50 mg/dL suggests HYPOGLYCEMIA. Potassium [Moles/Vol] 4.0 mmol/L 3.5-5.1 [facility] Protein [Mass/Vol] 7.1 g/dL 6.4-8.2 [facility] Sodium [Moles/Vol] 139 mmol/L 136-145 [facility] Triglyceride [Mass/Vol] 132 mg/dL <199 [facility] Comment on above: The drugs N-Acetylcy steine and Metamizole may falsely depress this assay.Serum Triglycerides Reference Interval Normal <150 mg/dL Borderline high 150 - 199 mg/dL High 200 - 499 mg/dL Very High > or = 500 mg/dL Laboratory - Chemistry and C hemistry - challengeOrdered By: Jamin Amado on 03-12-2023 ALP [Catalytic activity/Vol] 87 U/L 45-117 [facility] ALT [Catalytic activity/Vol] 33 U/L 13-56 [facility] CO2 [Moles/Vol] 27.0 mmol/L 21.0-32.0 [facility] Cobalamin (Vitamin B12) [Mass/Vol] 258 pg/mL 211-911 [facility] Globulin (S) [Mass/Vol] 3.5 g/dL 2.2-4.2 [facility] Urea nitrogen/Creatinine [Mass ratio] 23.3 mg/mg 10-20 [facility] No Panel InformationOrdered By: Jamin Amado on 03-12-2023 Estimated GFR (MDRD) Amer 45 mL/min >60 [facility] Comment on above: GFR Calc Estimated GFR (MDRD) Non-Af Amer 37 mL/min >60 [facility] Comment on above: Non- GFR Calc Thyroid Stimulating Hormone (TSH) 0.58 uIU/mL 0.358-3.74 [facility] Vitamin D 25-Hydroxy 35.8 ng/mL [facility] Comment on above: Vitamin D 25(OH) Sta tus Range Deficiency <20 ng/mL (50nmol/L) Insufficiency 20 - 30 ng/mL (50 - 75 nmol/L) Sufficiency 30 - 100 ng/mL (75 - 250 nmol/L) Toxicity >100 ng/mL (>250 nmol/L) Serum or plasma albumin norris urement (mass/volume)Ordered By: Jamin Amado on 03-12-2023 Albumin [Mass/Vol] 3.6 g/dL 3.2-5.0 [facility] Serum or plasma albumin/glob ulin mass ratioOrdered By: Jamin Amado on 03-12-2023 Albumin/Globulin [Mass ratio] 1.0 {ratio} 0.9-2.4 [facility] Serum or plasma calcium norris urement (mass/volume)Ordered By: Jamin Amado on 03-12-2023 Calcium [Mass/Vol] 9.5 mg/dL 8.5-10.1 [facility] Serum or plasma cholesterol in HDL measurement (mass/volume)Ordered By: Jamin Amado on 03-12-2023 Cholesterol in HDL [Mass/Vol] 59 mg/dL >40 [facility] Comment on above: The drugs N-Acetylcy steine and Metamizole may falsely depress this assay. Reference Range HDL <40 mg/dL Low HDL Cholesterol HDL >or= 60 mg/dL High HDL Cholesterol Serum or plasma cholesterol in VLDL measurement (mass/volume)Ordered By: Jamin Amado on 03-12-2023 Cholesterol in VLDL [Mass/Vol] 26 mg/dL 5-40 [facility] Serum or plasma creatinine m easurement (mass/volume)Ordered By: Jamin mAado on 03-12-2023 Creatinine [Mass/Vol] 1.50 mg/dL 0.55-1.02 [facility] Comment on above: The validity of the calculated GFR & GFRAA in patients over 70 years has not been determined. Clinical correlation is essential. Serum or plasma low density lipoprotein (LDL) cholesterol measurement (mass/volume)Ordered By: Jamin Amado on 03-12-2023 Cholesterol in LDL [Mass/Vol] 74 mg/dL 0-130 [facility] Serum or plasma urea nitroge n measurement (mass/volume)Ordered By: Jamin Amado on 03-12-2023 Urea nitrogen [Mass/Vol] 35 mg/dL 7-18 [facility] Thin prep Papanicolaou smear with manual screeningOrdered By: Jamin Amado on 03-12-2023 Thin prep Papanicolaou smear with manual screening 10 U/L 15-37 [facility] Thin prep Papanicolaou smear with manual screening 5 5-15 [facility] Culture, urineOrdered By: Dr Moises Amado on 09-08-2022 Bacteria identified Cx Nom (U) Escherichia coli [facility] Basophil percentageOrdered B y: Dr. Amado on 09-06-2022 Basophil percentage 25-50 SEEN /hpf 0-5 [facility] Bilirubin Test strip Ql (U)O rdered By: Dr. Amado on 09-06-2022 Bilirubin Ql (U) Negative Negative [facility] Ketones Test strip Ql (U)Ord ered By: Dr. Amado on 09-06-2022 Ketones Ql (U) Negative Negative [facility] Mucus LM Ql (Urine sed)Order ed By: Dr. Amado on 09-06-2022 Mucus Ql (Urine sed) 0 SEEN /hpf [facility] Nitrite Test strip Ql (U)Ord ered By: Dr. Amado on 09-06-2022 Nitrite Ql (U) Negative Negative [facility] Protein Test strip Ql (U)Ord ered By: Dr. Amado on 09-06-2022 Protein Ql (U) 15 mg/dl Negative [facility] Squamous epithelial cells de tection in urine sediment by light microscopyOrdered By: Dr. Amado on 09-06-2022 Epithelial cells.squamous LM Ql (Urine sed) 0-5 SEEN /hpf 5-10 [facility] Urine blood detectionOrdered By: Dr. Amado on 09-06-2022 RBC Ql (U) 25 /ul Negative [facility] RBC Ql (U) 0 SEEN /hpf 0-5 [facility] Urine clarityOrdered By: Dr. Amado on 09-06-2022 Clarity (U) Sl. Cloudy Clear [facility] Urine color determinationOrd ered By: Dr. Amado on 09-06-2022 Color (U) Yellow Yellow [facility] Urine glucose detectionOrder ed By: Dr. Amado on 03-22-2023 Glucose Ql (U) 1000 mg/dl Normal [facility] Urine leukocyte esterase det ection by dipstickOrdered By: Dr. Amado on 09-06-2022 Leukocyte esterase Test strip Ql (U) 100 /ul Negative [facility] Urine pHOrdered By: Dr. Shaniqua ospina on 09-06-2022 pH (U) 5.0 [pH] 5.0 - 8.0 [facility] Urine sediment bacteria coun t by microscopy (number/high power field)Ordered By: Dr. Amado on 09-06-2022 Bacteria LM.HPF (Urine sed) [#/Area] 1 /[HPF] None Seen [facility] Urine specific gravity measu rementOrdered By: Dr. Amado on 09-06-2022 Specific gravity (U) [Rel density] 1.015 1.002-1.[address] [facility] Urobilinogen Auto test strip Ql (U)Ordered By: Dr. Amado on 09-06-2022 Urobilinogen Ql (U) Normal mg/dl Normal [facility] Absolute lymphocyte counton 03-06-2022 Lymphocytes Auto (Unsp spec) [#/Vol] 2.73 10*3/uL 0.83-4.51 [facility] Work Phone: Basophil percentageon 2021 Basophils/100 WBC (Bld) 0.5 % 0-1 [facility] Work Phone: Bilirubin [Mass/Vol] 0.40 mg/dL 0.20-1.00 [facility] Work Phone: Comment on above: For patients on eltr ombopag therapy, use of Dimension [place] TBIL is not recommended. Chloride [Moles/Vol] 106 mmol/L 98-107 [facility] Work Phone: Cholesterol [Mass/Vol] 142 mg/dL <200 [facility] Work Phone: [phone] Comment on above: <200 mg/dL Desirable 200-240 mg/dL Borderline >240 mg/dL High Risk Eosinophils/100 WBC (Bld) 5.2 % 0-5 [facility] Work Phone: Glucose [Mass/Vol] 136 mg/dL 74-106 [facility] Work Phone: Comment on above: Fasting Glucose resu lt greater than or equal to 126 mg/dL suggests DIABETES MELLITUS per A.D.A. criteria. Neutrophils (Bld) [#/Vol] 4.3 10*3/uL 2.0-7.7 [facility] Work Phone: Neutrophils/100 WBC (Bld) 55.1 % 47-70 [facility] Work Phone: Potassium [Moles/Vol] 4.3 mmol/L 3.5-5.1 [facility] Work Phone: Protein [Mass/Vol] 6.9 g/dL 6.4-8.2 [facility] Work Phone: Sodium [Moles/Vol] 141 mmol/L 136-145 [facility] Work Phone: Triglyceride [Mass/Vol] 206 mg/dL <199 [facility] Work Phone: Comment on above: The drugs N-Acetylcy steine and Metamizole may falsely depress this assay.Serum Triglycerides Reference Interval Normal <150 mg/dL Borderline high 150 - 199 mg/dL High 200 - 499 mg/dL Very High > or = 500 mg/dL WBC (Bld) [#/Vol] 7.9 10*3/uL 4.4-11.0 [facility] Work Phone: Blood erythrocytes count (nu mber/volume)on 03-06-2022 RBC (Bld) [#/Vol] 3.87 10*6/uL 4.2-5.4 [facility] Work Phone: Blood hemoglobin measurement (mass/volume)on 03-06-2022 Hemoglobin (Bld) [Mass/Vol] 11.3 g/dL 12.0-15.0 [facility] Work Phone: Blood lymphocytes/100 leukoc yteson 03-06-2022 Lymphocytes/100 WBC (Bld) 34.6 % 19-41 [facility] Work Phone: Blood monocytes/100 leukocyt eson 03-06-2022 Monocytes/100 WBC (Bld) 4.3 % 0-10 [facility] Work Phone: Blood platelet mean volumeon 03-06-2022 Platelet mean volume (Bld) [Entitic vol] 11.6 fL 6.2-12.0 [facility] Work Phone: Determination of erythrocyte mean corpuscular volume (MCV)on 03-06-2022 MCV (RBC) [Entitic vol] 93.0 fL 81-99 [facility] Work Phone: Hematocrit Auto (Bld) [Volum e fraction]on 03-06-2022 Hematocrit (Bld) [Volume fraction] 36.0 % 37-47 [facility] Work Phone: [phone] Laboratory - Chemistry and C hemistry - challengeon 03-06-2022 ALP [Catalytic activity/Vol] 95 U/L 45-117 [facility] Work Phone: ALT [Catalytic activity/Vol] 24 U/L 13-56 [facility] Work Phone: CO2 [Moles/Vol] 27.0 mmol/L 21.0-32.0 [facility] Work Phone: Cobalamin (Vitamin B12) [Mass/Vol] 278 pg/mL 211-911 [facility] Work Phone: Globulin (S) [Mass/Vol] 3.6 g/dL 2.2-4.2 [facility] Work Phone: Urea nitrogen/Creatinine [Mass ratio] 11.5 mg/mg 10-20 [facility] Work Phone: Laboratory - Hematology and Cell countson 03-06-2022 Erythrocyte distribution width (RBC) [Entitic vol] 42.6 fL 35.1-43.9 [facility] Work Phone: Erythrocyte distribution width (RBC) [Ratio] 12.6 % 11.6-14.6 [facility] Work Phone: Immature granulocytes/100 WBC (Bld) 0.300 % 0.0-0.9 [facility] Work Phone: Comment on above: IG% - Immature Granu locytes (promyelocytes, myelocytes and metamyelocytes) > 1% indicates that a LEFT SHIFT is Present. MCH (RBC) [Entitic mass] 29.2 pg 27.0-32.0 [facility] Work Phone: Nucleated RBC/100 WBC (Bld) [Ratio] 0 % 0-5 [facility] Work Phone: MCHC Auto (RBC) [Mass/Vol]on 03-06-2022 MCHC (RBC) [Mass/Vol] 31.4 g/dL 32-36 [facility] Work Phone: No Panel Informationon 03-06 Miscellaneous Test See comment [facility] Work Phone: Comment on above: TEST RESULT LIMITSIn sulin AntibodiesInsulin Antibodies <5.0 uU/mLThis test is also known as insulin autoantibody or IAA.This test was developed and its performance characteristicsdetermined by [facility]. It has not been cleared or approvedby the Food and Drug Administration.Reference Range:<5.0 Negative> or = 5.0 Positive __ TESTING PERFORMED AT [facility]. ORIGINAL REPORT ON FILE IN LAB CONTAINS ADDITIONAL TEST SITE INFORMATION. C-Peptide 1.3 ng/mL 1.1-4.4 [facility] Work Phone: Comment on above: C-Peptide reference interval is for fasting patients. Estimated GFR (MDRD) Amer 50 mL/min >60 [facility] Work Phone: Comment on above: GFR Calc Estimated GFR (MDRD) Non-Af Amer 41 mL/min >60 [facility] Work Phone: Comment on above: Non- GFR Calc Ionized Calcium 5.3 mg/dL 4.5-5.6 [facility] Work Phone: Comment on above: Performed at: [address] [id number] Director: Ahsan Mckeon PhD, Phone: [phone] Thyroid Stimulating Hormone (TSH) 3.01 uIU/mL 0.358-3.74 [facility] Work Phone: Vitamin D 25-Hydroxy 25.2 ng/mL [facility] Work Phone: Comment on above: Vitamin D 25(OH) Sta tus Range Deficiency <20 ng/mL (50nmol/L) Insufficiency 20 - 30 ng/mL (50 - 75 nmol/L) Sufficiency 30 - 100 ng/mL (75 - 250 nmol/L) Toxicity >100 ng/mL (>250 nmol/L) Platelets bldon 03-06-2022 Platelets (Bld) [#/Vol] 255 10*3/uL 150-450 [facility] Work Phone: Serum or plasma albumin norris urement (mass/volume)on 03-06-2022 Albumin [Mass/Vol] 3.3 g/dL 3.2-5.0 [facility] Work Phone: Serum or plasma albumin/glob ulin mass ratioon 03-06-2022 Albumin/Globulin [Mass ratio] 0.9 {ratio} 0.9-2.4 [facility] Work Phone: Serum or plasma calcium norris urement (mass/volume)on 03-06-2022 Calcium [Mass/Vol] 9.0 mg/dL 8.5-10.1 [facility] Work Phone: Serum or plasma cholesterol in HDL measurement (mass/volume)on 03-06-2022 Cholesterol in HDL [Mass/Vol] 39 mg/dL >40 [facility] Work Phone: Comment on above: The drugs N-Acetylcy steine and Metamizole may falsely depress this assay. Reference Range HDL <40 mg/dL Low HDL Cholesterol HDL >or= 60 mg/dL High HDL Cholesterol Serum or plasma cholesterol in VLDL measurement (mass/volume)on 03-06-2022 Cholesterol in VLDL [Mass/Vol] 41 mg/dL 5-40 [facility] Work Phone: Serum or plasma creatinine m easurement (mass/volume)on 03-06-2022 Creatinine [Mass/Vol] 1.39 mg/dL 0.55-1.02 [facility] Work Phone: Comment on above: The validity of the calculated GFR & GFRAA in patients over 70 years has not been determined. Clinical correlation is essential. Serum or plasma low density lipoprotein (LDL) cholesterol measurement (mass/volume)on 03-06-2022 Cholesterol in LDL [Mass/Vol] 62 mg/dL 0-130 [facility] Work Phone: Serum or plasma urea nitroge n measurement (mass/volume)on 03-06-2022 Urea nitrogen [Mass/Vol] 16 mg/dL 7-18 [facility] Work Phone: Thin prep Papanicolaou smear with manual screeningon 03-06-2022 Thin prep Papanicolaou smear with manual screening 13 U/L 15-37 [facility] Work Phone: Thin prep Papanicolaou smear with manual screening 8 5-15 [facility] Work Phone: CNPNon 11-02-2021 [facility] Telephone (ANUSHALiveRamp) GLENDY PELAEZ ([id number]) 1960 F Date Time Provider Department 11/02/21 NAZANIN LE During your visit today, we recorded the following information about you: Nazanin Le, FINANCIAL REPORTING ACCOUNTANT 11/02/2021 10:02 AM Signed Sw and nurse called to check and follow up with patient as part of our diabetes program. Patient reports that she "loves" the freestyle saira. Patient reports that she [...] INSULIN PEN NEEDLE UF) 31 gauge x 5/16" Use to inject insulin 4 times daily [...] 6 hours as needed for Pain. - [id number]- bor (CALTRATE 600-D PLUS MINERALS) 600 mg [...] Encounter Status:Closed by NAZANIN LE on 11/02/21 Normal [facility] CNOVon 11-01-2021 CNOV Office Visit (UCWSTR ) GLENDY PELAEZ ([id number]) 1960 F Date Time Provider Department 11/01/21 8:30 AM [facility] During your visit today, we recorded the following information about you: Temperature Pulse Respiration Blood pressure 97.9 degrees 97/minute 18/minute 138/78 Weight 71.3 kg Leandro Louie APRN.CNP 11/01/2021 9:04 AM Addendum CC: Patient presents [...] INSULIN PEN NEEDLE UF) 31 gauge x 5/16" Use to inject insulin 4 times daily [...] every 6 hours as needed for Pain. [id number]- bor (CALTRATE 600-D PLUS MINERALS) 600 mg [...] Smoker - (more content not included)... [facility]END[facility]EL[facility] ([id number]) 1960 F Date Time Provider Department 09/15/21 [facility] During your visit today, we recorded the following information about you: Rabia Nolasco RPh 09/15/2021 4:02 PM Signed Patient report she [...] Nolasco, PharmD, BCACP Primary Care Clinical Pharmacist [facility] Eloy Miles MD 09/19/2021 5:15 PM Signed Labs ordered Eloy Miles MD Allergies As of Date: 09/15/2021 Noted Allergy Reaction ACTOS (PIOGLITAZONE) 01/27/2019 7 - Swelling DEMORAL (MEPERIDINE) 01/27/2019 8 - GI Upset Date Reviewed: 07/25/2021 Reviewed by: Rabia Nolasco [facility] - Fully Assessed Reason for Visit: Diabetes [34] Primary Visit Diagnosis:Type 2 diabetes mellitus with diabetic polyneuropathy, with long-term current use of insulin (HCC) [E11.42, Z79.4] Order(s):C-PEPTIDE BLD [SQCPEPT] Order #: [id number] FUTURE GLUTAMIC AC DECARBOXYLASE AB [SQGADCAB] Order #: [id number] FUTURE Prescriptions as of 09/20/2021 - insulin degludec (TRESIBA) 200 unit/mL (3 mL) injection Inject 40 Units subcutaneously daily at bedtime. - insulin needles, DISPOSABLE, (BD INSULIN PEN NEEDLE UF) 31 gauge x 5/16" Use to inject insulin 4 times daily [...] 6 hours as needed for Pain. - [id number]- bor (CALTRATE 600-D PLUS MINERALS) 600 mg [...] Encounter Status:Closed by RABIA NOLASCO on 09/20/21 [facility] CNOVon 07-12-2021 CNOV Office Visit (FAMPWS ) GLENDY PELAEZ ([id number]) 1960 F Date Time Provider Department 07/12/21 10:40 AM ELOY MILES During your visit today, we recorded the following information about you: Pulse Respiration Blood pressure Weight 84/minute 16/minute 142/80 71 kg Eloy Miles MD 07/12/2021 3:05 PM Signed Chief Complaint Patient presents with: Recheck HPI Glendycourtney Pelaez is a 61 year old female who presents here today for a diabetic follow up Pt here today for a DM follow up. Notes that her is leaving his job at the [employer] and will be starting his new job [...] once daily. - flash glucose scanning reader (LiveProfileSTYLE SAIRA 14 DAY READER) Inject 1 Each [...] INSULIN PEN NEEDLE UF) 31 gauge x 5/16" Use to inject insulin 4 times daily - acetaminophen (TYLENOL EXTRA STRENGTH) 500 mg tablet Take 2 tablets by mouth every 6 hours as needed for Pain. - [id number]- bor (CALTRATE 600-D PLUS MINERALS) 600 mg calcium- 800 unit-50 mg tab Take 1 tablet by mouth once daily. - calcium Carbonate 300 mg, 750mg, (TUMS) 300 mg (750 mg) chewable tablet Take 1 tablet by mouth once daily as needed. - ferrous sulfate (IRON) 325 mg (65 mg iron) (more content not included)... Normal [facility] CNSWon 07-06-2021 CNSW Social Work (ANUSHAWST) GLENDY PELAEZ ([id number]) 1960 F Date Time Provider Department 07/06/21 RADHANAZANIN ESTELLA During your visit today, we recorded the following information about you: Nazanin Avelinakaylee, FINANCIAL REPORTING ACCOUNTANT 07/07/2021 4:37 PM Signed Patient reports that she was diagnosed 20 years ago with diabetes. Multiple family members have diabetes ie mother, step father, siblings Patient reports that she likes to eat 1 package of pop tarts every morning. Patient drinks coffee with her pop tarts. For lunch she likes to eat arabic yogurt, peanut butter and cheese crackers, apples, [...] and patient [facility] and then see if she feels dietitian meeting would be beneficial. Discussed exercise and patient reports that she does not exercise in the winter. In the summer, she walks at the campgrounds that they camp at for the summer. Biggest concerns for patient is in regards to high A1C and feels" I have been stuck in the same place for the last 20 years regarding my diabetes. I don't understand how my mom and cousin have a low A1C and they eat cakes, candy, all the time." Patient reports that she is also concerned about how some diabetes medications can increase weight gain. Patient notes that she has been trying to watch her portions. Goals: Lower A1C score Lose 20 pounds Patient discussed that she could start to walk again at the [facility] like she has in the past. No concerns noted regarding cost of medications, food, housing,transportation. Patient reports that she is looking forward to meeting with Stanislav-Diabetes Ed and [facility]ia[facility]Pharm. Patient reports that she likes to correspond via [employer]. Allergies As of Date: 07/06/2021 Noted Allergy [...] INSULIN PEN NEEDLE UF) 31 gauge x 5/16" Use to inject insulin 4 times daily - acetaminophen (TYLENOL EXTRA STRENGTH) 500 mg tablet Take 2 tablets by mouth every 6 hours as needed for Pain. - [id number]- bor (CALTRATE 600-D PLUS MINERALS) 600 mg [...] Status:Closed by NAZANIN LE on 07/07/21 Normal [facility] Comp Metabolic Panelon 07-06 Albumin [Mass/Vol] 4.2 g/dL Normal 3.9-4.9 [facility] Comment on above: Performed By: #### H CHRISTY, CMP ####[facility] [place], [place] [phone] ALP [Catalytic activity/Vol] 81 U/L Normal 34-123 [facility] Comment on above: Performed By: #### H ROLANDA1C, CMP ####[facility] [address] [place], [place] [phone] ALT [Catalytic activity/Vol] 23 U/L Normal 7-38 [facility] Comment on above: Performed By: #### H BA1C, CMP ####[facility] [place], [place] [phone] Anion gap [Moles/Vol] 7 mmol/L Low 9-18 [facility] Comment on above: Performed By: #### H BA1C, CMP ####[place] [address] [address] [place], [place] [phone] AST [Catalytic activity/Vol] 18 U/L Normal 13-35 [facility] Comment on above: Performed By: #### H BAJayne, CMP ####[place] [address] [address] [place], [place] [phone] Bilirubin [Mass/Vol] 0.3 mg/dL Normal 0.2-1.3 [facility] Comment on above: Performed By: #### H BAJayne, CMP ####[place] [phone] Calcium [Mass/Vol] 9.9 mg/dL Normal 8.5-10.2 [facility] Comment on above: Performed By: #### H BAJayne, CMP ####[place] [phone] Chloride [Moles/Vol] 104 mmol/L Normal 97-105 [facility] Comment on above: Performed By: #### H BAJayne, CMP ####[place] [address] [address] [phone] CO2 [Moles/Vol] 27 mmol/L Normal 22-30 [facility] Comment on above: Performed By: #### H BA1C, CMP ####[place] [address] [address] [phone] Creatinine [Mass/Vol] 1.14 mg/dL High 0.58-0.96 [facility] Comment on above: Performed By: #### H BA1C, CMP ####[place] [address] [address] [phone] eGFR- Amer. 59 Normal [facility] Comment on above: Performed By: #### H BA1C, CMP ####[place] [address] [address] [place], [place] [phone] eGFR-All Other Races 49 . Normal [facility] Comment on above: Result Comment: eGFR (Estimated [...] [email or web address]. Performed By: #### H CHRISTY, CMP ####[facility] [address] [place], [place] [phone] Glucose [Mass/Vol] 111 mg/dL High 74-99 [facility] Comment on above: Result Comment: The [place] Diabetes Association (ADA) provides guidance for cutoff [...] Standards of Medical Care in Diabetes 2016, [place] Diabetes Association. Diabetes Care. 2016.39(Suppl 1). Performed By: #### H CHRISTY, CMP ####[facility] [place], [place] [phone] Potassium [Moles/Vol] 4.9 mmol/L Normal 3.7-5.1 [facility] Comment on above: Performed By: #### H BA1C, CMP ####[address] [phone] Protein [Mass/Vol] 6.7 g/dL Normal 6.3-8.0 [facility] Comment on above: Performed By: #### H BA1C, CMP ####[place] [phone] Sodium [Moles/Vol] 138 mmol/L Normal 136-144 [facility] Comment on above: Performed By: #### H BA1C, CMP ####[place] [phone] Urea nitrogen [Mass/Vol] 15 mg/dL Normal 7-21 [facility] Comment on above: Performed By: #### H BA1C, CMP ####[place] [phone] Hemoglobin A1con 07-06-2021 Glucose [Mass/Vol] 229 mg/dL Normal [facility] Comment on above: Result Comment: eAG: (Estimated average glucose) is a calculated value from HgbA1c and is credit and collections representative of the average blood glucose level in the last 2-3 month period. Performed By: #### H BA1C, CMP ####[address] [phone] HbA1c (Bld) [Mass fraction] 9.6 % High 4.3-5.6 [facility] Comment on above: Result Comment: Amer [place] Diabetes Association guidelines indicate that patients with HgbA1c in the range 5.7-6.4% are at increased risk for development of diabetes, and intervention by lifestyle modification may be beneficial. HgbA1c greater or equal to 6.5% is considered diagnostic of diabetes. Performed By: #### H BA1C, CMP ####[address] [phone] CNPNon 06-20-2021 CNPN Telephone (PHARMN) ANTONIOGLENDY Robles ([id number]) 1960 F Date Time Provider Department 06/20/21 SEAN GARCIA During your visit today, we recorded the following information about you: IDRIS Barber 06/20/2021 10:51 AM Signed Telephoned the patient to schedule a new pharmacy med/review appt. Left a message. Due to the PSS office shortage and high primary consult referral volume, one called was placed. If the patient returns the call, an appt with be scheduled. Encounter routed to the clinical pharmacist. Rabia Nolasco RPh 06/23/2021 3:05 PM Signed Sent [employer] message to pt with instructions to schedule. Rabia Nolasco, PharmD, BCACP Primary Care Clinical Pharmacist [facility] Allergies As of Date: 06/20/2021 Noted Allergy [...] INSULIN PEN NEEDLE UF) 31 gauge x 5/16" Use to inject insulin 4 times daily - acetaminophen (TYLENOL EXTRA STRENGTH) 500 mg tablet Take 2 tablets by mouth every 6 hours as needed for Pain. - [id number]-frfr-mlf-kmha- bor (CALTRATE 600-D PLUS MINERALS) 600 mg [...] Encounter Status:Closed by RABIA NOLASCO on 06/23/21 [facility] TRAVGLENDY ([id number]) 1960 F Date Time Provider Department 06/15/21 [...] 2 diabetes mellitus without complication, unspecified whether snf insulin use (HCC) [E11.9] Order(s):CONSULT TO INT NURSE DIABETES [9545651] Order #: [id number]: 1 CUTLERY GRINDER [CONSULT TO SOCIAL WORK] [] Order #: [id number]: 1 FUTURE CONSULT TO DIABETES EDUCATION [[id number]] Order #: [id number]: 1 FUTURE CONSULT TO PHARMACY [[id number]] Order #: [id number]: 1 REFER BACK TO PCP FOR DM TYPE 2 MAINT [[id number]] Order #: [id number]: 1 FUTURE Prescriptions as of 06/21/2021 - [...] INSULIN PEN NEEDLE UF) 31 gauge x 5/16" Use to inject insulin 4 times daily - acetaminophen (TYLENOL EXTRA STRENGTH) 500 mg tablet Take 2 tablets by mouth every 6 hours as needed for Pain. - [id number]-[id number]-tafo-wds-puot- bor (CALTRATE 600-D PLUS MINERALS) 600 mg [...] Encounter Status:Closed by DAHIANA PRITCHETT on 06/21/21 Normal [facility] 06-02-2021 CNPN Telephone (RDXWS) GLENDY PELAEZ ([id number]) 1960 F Date Time Provider Department 06/02/21 ELOY MILES RDXWS During your visit today, we recorded the following information about you: Shruthi Philippe, [employer] Tech 06/02/2021 7:41 AM Addendum Please file orders for left diagnostic mammogram and left breast ultrasound. Call back from screening. Thanks. Please disregard.....compared to priors and no additional imaging needed. Dwight Genao APRN.CNP 06/03/2021 8:20 AM Signed Orders filed. Dwight Genao APRN.[facility] Allergies As of Date: 06/02/2021 Noted Allergy Reaction ACTOS (PIOGLITAZONE) 01/27/2019 7 - Swelling DEMORAL (MEPERIDINE) 01/27/2019 8 - GI Upset Date Reviewed: 02/16/2021 Reviewed by: Nubia Scales Ma - Fully Assessed Reason for Visit: Orders [681] Primary Visit Diagnosis:Abnormal mammogram [R92.8] Order(s):US BREAST LTD LT [[id number]] Order #: [id number] FUTURE SWAPNIL DIAGNOSTIC LT [[id number]] Order #: [id number] FUTURE Prescriptions as of 06/03/2021 - flash [...] INSULIN PEN NEEDLE UF) 31 gauge x 5/16" Use to inject insulin 4 times daily - acetaminophen (TYLENOL EXTRA STRENGTH) 500 mg tablet Take 2 tablets by mouth every 6 hours as needed for Pain. - nfj-R8-[id number]-cauu-rbq-xuxj- bor (CALTRATE 600-D PLUS MINERALS) 600 mg [...] stage 3, GFR 30-59* Encounter Status:Closed by DWIGTH GENAO on 06/03/21 [facility] [id number] Author: Mammography Coordinator Service: ? Author Type: Physician Type: Letter Filed: 05/30/2021 11:32 PM Note Text: 2021 PID: [id number] Glendy Pelaez [address] [place] [address] Dear Ms. Pelaez, Your breast imaging exam 2021 showed a possible finding that may require additional imaging studies for a complete evaluation. However, we recognize you have prior imaging studies at facilities other than [facility], and would like the opportunity to compare [...] and reports are kept on file at [facility] as part of your permanent medical record, and are available for your continuing care. If you have any questions or concerns, please call [phone]. Thank you for choosing [facility] for your imaging needs. Sincerely, Dr. Devlin Interpreting Radiologist [facility] ([employer]) Normal [facility] SCREENINGon 2021 [facility] SCREENING * * *Final Report* * * * * * SEE BOTTOM OF REPORT FOR ADDENDED TEXT * * * DATE OF EXAM: 2021 10:55AM [facility] 0581 - [facility] SCREENING / PROCEDURE REASON: Encounter for screening mammogram for malignant neoplasm of breast * * * * Physician Interpretation * * * * RESULT: THIS REPORT HAS BEEN AMENDED. #[id number] - [facility] SCREENING BILATERAL DIGITAL SCREENING MAMMOGRAM WITH CAD: 2021 HISTORY: Screening Mammogram - patient reports NO breast symptoms / Previous at [facility] for which release is scanned and signed. [...] communicated to the patient. January bernal/rabia:2021 11:05:28 Cnc Machine Programmer(s): Tere Chavez RT(R)(M), [facility] letter sent: Comparison Films Needed Mammogram BI-RADS: 0 Incomplete: needs additional imaging evaluation If this report indicates you need additional imaging, and it has NOT yet been performed, please call , to schedule. We sincerely thank you for choosing the [facility] for your breast imaging needs. Multiple national specialty organizations have released breast cancer screening guidelines for women at average risk for developing breast cancer - guidelines that are based on both evidence and opinion, yet differ on when to start and how often to screen for breast cancer. With representation from Breast Imaging, Internal Medicine, Women's Health, Family Medicine, and Medical/Surgical Oncology, the [facility] has carefully reviewed the data and reached [...] Negative letter sent: Normal - Films Compared Matrix Plater: Rabia Transcribe Date/Time: 2021 10:24A Dictated by: JANUARY DEVLIN MD This examination was interpreted and the report reviewed and electronically signed by: JANUARY DEVLIN MD on 2021 11:05AM EST This document has been addended by: JANUARY DEVLIN MD on 2021 4:10PM EST [id number] Normal [facility] 02-18-2021 [facility] GLENDY PELAEZ ([id number]) 1960 F Date Time Provider Department 02/18/21 ELOY MILES During your visit today, we recorded the following information about you: Alecia Calhoun RN 02/18/2021 1:03 PM Signed Mariah- Jarad Aid- asking for maximum daily dose on humalog sliding scale. Insurance will kick it out, without it. Please phone Mariah with reply: [phone] Eloy Miles MD 02/18/2021 1:54 PM Signed [...] polyneuropathy, with long-term current use of insulin ([facility]) [E11.42, Z79.4] Order(s):insulin lispro (HUMALOG KWIKPEN INSULIN) [...] INSULIN PEN NEEDLE UF) 31 gauge x 5/16" Use to inject insulin 4 times daily - acetaminophen (TYLENOL EXTRA STRENGTH) 500 mg tablet Take 2 tablets by mouth every 6 hours as needed for Pain. - [id number]-[id number]-kugf-wsv-hnwb- bor (CALTRATE 600-D PLUS MINERALS) 600 mg [...] Status:Closed by MARTHA TURNER MA on 02/18/21 [facility] CNOVnatalie 02-16-2021 CNOV Office Visit (FAMPWS ) GLENDY PELAEZ ([id number]) 1960 F Date Time Provider Department 02/16/21 6:00 PM ELOY MILES During your visit today, we recorded the following information about you: Pulse Respiration Blood pressure Weight 78/minute 16/minute 120/72 70.9 kg Eloy Miles MD 02/16/2021 7:55 PM Signed Chief Complaint Patient presents with: Follow Up: diabetes HPI Glendy Grayson Trav is a 60 year old female who presents here today for follow up. Has been spending weekends at [employer], not eating as well there. Campground will [...] kidney disease) stage 3, GFR 30-59 ml/min ([facility]) - Hyperlipidemia - SCC (squamous cell carcinoma) [...] INSULIN PEN NEEDLE UF) 31 gauge x 5/16" Use to inject insulin 4 times daily - acetaminophen (TYLENOL EXTRA STRENGTH) 500 mg tablet Take 2 tablets by mouth every 6 hours as needed for Pain. - pav-P9-[id number]-itex-hmm-fvut- bor (CALTRATE 600-D PLUS MINERALS) 600 mg [...] rales.. Hea (more content not included)... Normal [facility] Lipid Panel, Basicon 021 Cholesterol [Mass/Vol] 163 mg/dL Normal <200 [facility] Comment on above: Result Comment: <200 mg/dL, Desirable 200-239 mg/dL, Borderline high >239 mg/dL, High Performed By: #### L IPB ####[facility] [place], [place] [phone] Cholesterol in HDL [Mass/Vol] 47 mg/dL Normal >39 [facility] Comment on above: Result Comment: 40-5 9 mg/dL, Acceptable >59 mg/dL, High: Negative risk factor for coronary heart disease <40 mg/dL, Low: Positive risk factor for coronary heart disease Performed By: #### L IPB ####[place] [id number] [place], [place] [phone] Cholesterol in LDL [Mass/Vol] 91 mg/dL Normal <100 [facility] Comment on above: Result Comment: <100 mg/dL, Optimal 100-129 mg/dL, Near optimal/above optimal 130-159 mg/dL, Borderline high 160-189 mg/dL, High >189 mg/dL, Very high Secondary prevention optimal LDL Cholesterol levels are recommended to be < 70 mg/dL Performed By: #### L IPB ####[place] [id number] [place], [place] [phone] Fasting Time 12 hrs Normal [facility] Comment on above: Performed By: #### L IPB ####[address] [phone] LDL:HDL Ratio 1.94 Normal <2.54 [facility] Comment on above: Result Comment: Refe rence: 1. National Cholesterol Education Program ATP III Guideline At-A-Glance Quick Desk Reference: National Heart, Lung, and Blood [place]. National Institutes of Health. 2001: NIH Publication No. 01-3305. 2. An International Atherosclerosis Society position paper: global recommendations for the management of dyslipidemia: executive summary, Atherosclerosis. 2014: 232(2):410-413. Performed By: #### L IPB ####[place] [address] [place], [place] [phone] Non HDL Cholesterol 116 mg/dL Normal <130 [facility] Comment on above: Result Comment: <130 mg/dL, Optimal 130-159 mg/dL, Near optimal/above optimal 160-189 mg/dL, Borderline high 190-219 mg/dL, High >219 mg/dL, Very high Secondary prevention optimal non HDL Cholesterol levels are recommended to be < 100 mg/dL Performed By: #### L IPB ####[place] [phone] TC:HDL Ratio 3.47 Normal <5.10 [facility] Comment on above: Performed By: #### L IPB ####[place] [phone] Triglyceride [Mass/Vol] 124 mg/dL Normal <150 [facility] Comment on above: Result Comment: <150 mg/dL, Normal 150-199 mg/dL, Borderline high 200-499 mg/dL, High >499 mg/dL, Very high Performed By: #### L IPB ####[place] [phone] VLDL Cholesterol 25 mg/dL Normal <30 [facility] Comment on above: Performed By: #### L IPB ####[place] [phone] Remote CMP (for [facility] use only )on 02-05-2021 Albumin [Mass/Vol] 4.2 g/dL Normal 3.9-4.9 [facility] Comment on above: Performed By: #### R CMP, RHBA1C ####[place] [phone] ALP [Catalytic activity/Vol] 92 U/L Normal 34-123 [facility] Comment on above: Performed By: #### R CMP, RHBA1C ####[place] [phone] ALT [Catalytic activity/Vol] 18 U/L Normal 7-38 [facility] Comment on above: Performed By: #### R CMP, RHBA1C ####[facility] [place], [place] [phone] Anion gap [Moles/Vol] 12 mmol/L Normal 9-18 [facility] Comment on above: Performed By: #### R CMP, RHBA1C ####[place] [address] [place], [place] [phone] AST [Catalytic activity/Vol] 22 U/L Normal 13-35 [facility] Comment on above: Performed By: #### R CMP, RHBA1C ####[place] [address] [place], [place] [phone] Bilirubin [Mass/Vol] 0.2 mg/dL Normal 0.2-1.3 [facility] Comment on above: Performed By: #### R CMP, RHBA1C ####[place] [address] [place], [place] [phone] Calcium [Mass/Vol] 9.9 mg/dL Normal 8.5-10.2 [facility] Comment on above: Performed By: #### R CMP, RHBA1C ####[place] [address] [place], [place] [phone] Chloride [Moles/Vol] 100 mmol/L Normal 97-105 [facility] Comment on above: Performed By: #### R CMP, RHBA1C ####[place] [address] [address] [place], [place] [phone] CO2 [Moles/Vol] 25 mmol/L Normal 22-30 [facility] Comment on above: Performed By: #### R CMP, RHBA1C ####[facility] [place], [place] [phone] Creatinine [Mass/Vol] 1.32 mg/dL High 0.58-0.96 [facility] Comment on above: Performed By: #### R CMP, RHBA1C ####[facility] [address] [place], [place] [phone] eGFR- Amer. 50 Normal [facility] Comment on above: Performed By: #### R CMP, RHBA1C ####[facility] [place], [place] [phone] eGFR-All Other Races 41 . Normal [facility] Comment on above: Result Comment: eGFR (Estimated [...] reflect actual GFR. Performed By: #### R CMP, RHBA1C ####[facility] [place], [place] [phone] Glucose [Mass/Vol] 137 mg/dL High 74-99 [facility] Comment on above: Result Comment: The [place] Diabetes Association (ADA) provides guidance for cutoff [...] Standards of Medical Care in Diabetes 2016, [place] Diabetes Association. Diabetes Care. 2016.39(Suppl 1). Performed By: #### R CMP, RHBA1C ####[facility] [place], [place] [phone] Potassium [Moles/Vol] 5.1 mmol/L Normal 3.7-5.1 [facility] Comment on above: Performed By: #### R CMP, RHBA1C ####[facility] [place], [place] [phone] Protein [Mass/Vol] 7.1 g/dL Normal 6.3-8.0 [facility] Comment on above: Performed By: #### R CMP, RHBA1C ####[place] [address] [address] [place], [place] [phone] Sodium [Moles/Vol] 137 mmol/L Normal 136-144 [facility] Comment on above: Performed By: #### R CMP, RHBA1C ####[place] [address] [address] [place], [place] [phone] Urea nitrogen [Mass/Vol] 15 mg/dL Normal 7-21 [facility] Comment on above: Performed By: #### R CMP, RHBA1C ####[place] [address] [place], [place] [phone] Remote HBA1C (for [facility] use on ly)on 02-05-2021 Glucose [Mass/Vol] 223 mg/dL Normal [facility] Comment on above: Result Comment: eAG: (Estimated average glucose) is a calculated value from HgbA1c and is credit and collections representative of the average blood glucose level in the last 2-3 month period. Performed By: #### R CMP, RHBA1C ####[place] [address] [address] [place], [place] [phone] HbA1c (Bld) [Mass fraction] 9.4 % High 4.3-5.6 [facility] Comment on above: Result Comment: Amer ican Diabetes Association guidelines indicate that patients with HgbA1c in the range 5.7-6.4% are at increased risk for development of diabetes, and intervention by lifestyle modification may be beneficial. HgbA1c greater or equal to 6.5% is considered diagnostic of diabetes. Performed By: #### R CMP, RHBA1C ####[place] [address] [place], [place] [phone] Junior 11-22-2020 CAREN Telephone (FAMWillisWS) TRAVGLENDY Grayson ([id number]) 1960 F Date Time Provider Department 11/22/20 [...] Assessed Reason for Visit: PHMA/Care Gap Outreach [3699] Prescriptions as of 11/22/2020 Sig: METFORMIN ER [...] by NUBIA SCALES MA on 11/22/20 Normal [facility] .GFRon 05-07-2018 GFR 63 ml/min/1.73sqm Normal [facility] ([place]) Comment on above: Result Comment: GFR [...] meters Performed By: #### B MP, GFR ####[place] [address] GFR Non- 52 ml/min/1.73sqm Normal [facility] ([place]) Comment on above: Result Comment: GFR Population [...] meters Performed By: #### B MP, GFR ####[place] [address] BMPon 05-07-2018 Calcium mass conc 9.5 mg/dL Normal 8.4-10.2 [facility] ([place]) Comment on above: Performed By: #### Santos MP, GFR ####[place] [address] Chloride molar conc 102 mmol/L Normal 98-107 [facility] ([place]) Comment on above: Performed By: #### Santos MP, GFR ####[place] [address] CO2 molar conc 29 mmol/L Normal 22-29 [facility] ([place]) Comment on above: Performed By: #### Santos MP, GFR ####[place] [address] Creatinine mass conc 1.09 mg/dL High 0.55-1.02 [facility] ([place]) Comment on above: Performed By: #### Santos MP, GFR ####[place] [address] Electrolyte Balance 8.0 mEq/L Normal [facility] ([place]) Comment on above: Performed By: #### Santos MP, GFR ####[place] [address] Glucose mass conc 114 mg/dL High 70-105 [facility] ([place]) Comment on above: Performed By: #### B MP, GFR ####[place] [address] Potassium molar conc 4.4 mmol/L Normal 3.5-5.1 [facility] ([place]) Comment on above: Performed By: #### B MP, GFR ####[facility] [place] [address] Sodium molar conc 139 mmol/L Normal 136-145 [facility] ([place]) Comment on above: Performed By: #### B MP, GFR ####[place] [address] [place] [phone] Urea nitrogen mass conc 13 mg/dL Normal 7-18 [facility] ([place]) Comment on above: Performed By: #### B MP, GFR ####[place] [address] [place] [phone] Urea nitrogen/Creatinine mass ratio 12 ratio Normal 7-27 [facility] ([place]) Comment on above: Performed By: #### B MP, GFR ####[address] [address] .GFRon 03-21-2018 GFR Non- 44 ml/min/1.73sqm Normal [facility] ([place]) Comment on above: Result Comment: GFR Population [...] Performed By: #### C MP, GFR, LIPID ####[place] [address] [place] [address] GFR 53 ml/min/1.73sqm Normal [facility] ([place]) Comment on above: Result Comment: GFR Population [...] Performed By: #### C MP, GFR, LIPID ####[place] [address] CMPon 03-21-2018 Albumin mass conc 4.0 G/dL Normal 3.5-5.0 [facility] ([place]) Comment on above: Performed By: #### C MP, GFR, LIPID ####[place] [address] Albumin/Globulin mass ratio 1.3 {ratio} Normal 1.1-2.5 [facility] ([place]) Comment on above: Performed By: #### C MP, GFR, LIPID ####[place] [address] ALP enzyme act/vol 132 U/L Normal 40-135 [facility] ([place]) Comment on above: Performed By: #### C MP, GFR, LIPID ####[place] [address] ALT enzyme act/vol 31 U/L Normal 10-35 [facility] ([place]) Comment on above: Performed By: #### C MP, GFR, LIPID ####[place] [address] AST enzyme act/vol 15 U/L Normal 10-40 [facility] ([place]) Comment on above: Performed By: #### C MP, GFR, LIPID ####[place] [id number] Bili Total 0.3 mg/dL Normal 0.2-1.0 [facility] ([place]) Comment on above: Performed By: #### C MP, GFR, LIPID ####[place] [address] Calcium mass conc 9.3 mg/dL Normal 8.4-10.2 [facility] ([place]) Comment on above: Performed By: #### C MP, GFR, LIPID ####[place] [address] Chloride molar conc 98 mmol/L Normal 98-107 [facility] ([place]) Comment on above: Performed By: #### C MP, GFR, LIPID ####[address] [address] CO2 molar conc 28 mmol/L Normal 22-29 [facility] ([place]) Comment on above: Performed By: #### C MP, GFR, LIPID ####[place] [address] Creatinine mass conc 1.27 mg/dL High 0.55-1.02 [facility] ([place]) Comment on above: Performed By: #### C MP, GFR, LIPID ####[place] [address] Electrolyte Balance 11.0 mEq/L Normal [facility] ([place]) Comment on above: Performed By: #### C MP, GFR, LIPID ####[place] [address] Globulin Calculated mass conc (S) 3.1 G/dL Normal [facility] ([place]) Comment on above: Performed By: #### C MP, GFR, LIPID ####[place] [address] Glucose mass conc 87 mg/dL Normal 70-105 [facility] ([place]) Comment on above: Performed By: #### C MP, GFR, LIPID ####[place] [address] Potassium molar conc 3.9 mmol/L Normal 3.5-5.1 [facility] ([place]) Comment on above: Performed By: #### C MP, GFR, LIPID ####[place] [address] Protein mass conc 7.1 G/dL Normal 6.4-8.2 [facility] ([place]) Comment on above: Performed By: #### C MP, GFR, LIPID ####[place] [address] Sodium molar conc 137 mmol/L Normal 136-145 [facility] ([place]) Comment on above: Performed By: #### C MP, GFR, LIPID ####[address] [address] Urea nitrogen mass conc 17 mg/dL Normal 7-18 [facility] ([place]) Comment on above: Performed By: #### C MP, GFR, LIPID ####[address] [address] Urea nitrogen/Creatinine mass ratio 13 ratio Normal 7-27 [facility] ([place]) Comment on above: Performed By: #### C MP, GFR, LIPID ####[address] [address] LIPIDon 03-21-2018 Cholesterol in HDL mass conc 40 mg/dL Normal 40-60 [facility] ([place]) Comment on above: Performed By: #### C MP, GFR, LIPID ####[address] [address] Cholesterol in LDL mass conc 119 mg/dL Normal 0-130 [facility] ([place]) Comment on above: Performed By: #### C MP, GFR, LIPID ####[address] [address] Cholesterol mass conc 210 mg/dL High 0-200 [facility] ([place]) Comment on above: Result Comment: Chol esterol Reference Interval:Less than 200 [id number] Borderline high [id number] and above High risk Performed By: #### C MP, GFR, LIPID ####[address] [address] Triglyceride mass conc 256 mg/dL High 0-150 [facility] ([place]) Comment on above: Result Comment: Trig lyceride Reference Interval:Less than 150 [id number] Borderline high [id number] High [id number] or higher Very high risk Performed By: #### C MP, GFR, LIPID ####[address] [address] Vital Signs Date Time Vital Sign Value Performing Clinician Aly rose 03-14-2022 11:49-0400 Body height 160.[address] [facility] Work Phone: 03-14-2022 11:49-0400 Body weight 73.[address] [facility] Work Phone: 11-01-2021 08:26-0400 Body temperature 97.9 [degF] Leandro Louie APRN.ABLE BODIED TANKERMAN Work Phone: [facility] 11-01-2021 08:26-0400 Body weight 71.31 kg Leandro Louie APRN.ABLE [employer]ODIED TANKERMAN Work Phone: [facility] 11-01-2021 08:26-0400 Diastolic blood pressure 78 mm[Hg] Leandro Louie APRN.ABLE [employer]ODIED TANKERMAN Work Phone: [facility] 11-01-2021 08:26-0400 Heart rate 97 /min Leandro Louie APRN.ABLE [employer]ODIED TANKERMAN Work Phone: [facility] 11-01-2021 08:26-0400 Respiratory rate 18 /min Leandro Louie APRN.ABLE BODIED TANKERMAN Work Phone: [facility] 11-01-2021 08:26-0400 SaO2% (BldA) [Mass fraction] 98 % Leandro Louie APRN.ABLE [employer]ODIED TANKERMAN Work Phone: [facility] 11-01-2021 08:26-0400 Systolic blood pressure 138 mm[Hg] Leandro Louie APRN.ABLE [employer]ODIED TANKERMAN Work Phone: [facility] Encounters Encounter Date Encounter Type Care Provider Facility Start: 09-23-2024 End: 09-23-[address] Thanh Amado MD Work Phone: [facility] Work Phone: Start: 09-23-2024 End: 09-23-2024 Patient encounter procedure Shen Merrill PRINCIPAL IOS DEVELOPER-C -Laboratory, Specimen Work Phone: Start: 09-23-2024 End: 09-23-2024 ambulatory Thanh Amado Facility:[facility] Start: 09-19-2024 End: 09-19-[address] Thanh Amado MD Work Phone: [facility] Work Phone: Start: 09-19-2024 End: 09-19-[address] Thanh Amado MD -Outpatient Breast Imaging Work Phone: Start: 09-19-2024 End: 09-19-2024 [facility] Start: 06-23-2024 End: 06-23-[address] Thanh Amado MD -Ultrasound, [facility] Work Phone: Start: 06-23-2024 End: 06-23-2024 [facility] Start: 06-09-2024 End: 06-09-[address] [facility] Start: 06-09-2024 End: 06-09-2024 [facility] Start: 09-14-2023 End: 09-14-[address] [facility] Work Phone: Start: 09-14-2023 End: 09-14-[address] [facility]-Outpatient Breast Imaging Work Phone: Start: 06-06-2023 End: 06-06-[address] [facility] Work Phone: Start: 06-06-2023 End: 06-06-[address] [facility] Start: 03-12-2023 End: 03-12-[address] [facility]: Start: 09-06-2022 End: 09-06-[address] [facility] Work Phone: Start: 09-06-2022 End: 09-06-[address] [facility]-Laboratory, Specimen Start: 06-07-2022 End: 06-07-[address] [facility] Work Phone: Start: 06-07-2022 End: 06-07-[address] [facility]Outpatient Breast Imaging Start: 03-14-2022 End: 03-17-[address] [facility] Work Phone: Start: 03-14-2022 End: 03-17-[address] [facility] Start: 03-06-2022 End: 03-06-[address] [facility]Labor[facility] Start: 12-09-2021 ambulatory Eloy olivarez MD Work Phone: [facility] [place] Comment on above: Cancel Appt- change in insurance Start: 11-02-2021 Telephone encounter Nazanin Alston [facility] Comment on above: Diabetes Ed Follow U p Start: 11-01-2021 End: 11-01-2021 Patient encounter procedure Leandro Louie PEACE.ABLE BODIED TANKERMAN Work Phone: [facility] Comment on above: Sinus congestion (Pr imary Dx) Start: 10-28-2021 ambulatory Eloy olivarez MD Work Phone: [facility] [place] Comment on above: Prednisone Start: 10-25-2021 ambulatory Keti Dubgregoria RPh Work Phone: [facility] Comment on above: Low Blood sugar Start: 05-07-2018 End: 05-12-2018 Patient encounter procedure Janet Mjeia Facility:[facility] Start: 03-21-2018 End: 03-26-2018 Patient encounter procedure Janet Mejia Facility:[facility] Procedures Date Procedure Procedure Detail Performing Clinician [...] Detail Author Start: 09-23-[address] [facility] Start: 12-10-2022 HPV TESTING HPV TESTING [facility] Start: 12-10-2022 PAP TESTING PAP TESTING [facility] Start: 07-12-2022 Adult depression screening assessment DEPRESSION SCREENING [facility] Start: 07-12-2022 ANNUAL PCP TEAM MEDICAL SERVICE TECHNICIAN CHARMAINE DISEASE VISIT ANNUAL PCP TEAM CHRONIC DISEASE VISIT [facility] Start: 07-06-2022 SERUM CREATININE SERUM CREATININE [facility] Start: 2022 Mammography MAMMOGRAM [facility] Start: 02-16-2022 HIV SCREENING HIV SCREENING [facility] Comment on above: Postponed from 05/26 (Declined at this time) Start: 02-16-2022 Influenza vaccination INFLUENZA (Sea son Ended) [facility] Start: 02-05-2022 Hepatitis B surface antibody level LDL CHOLESTEROL [facility] Start: 10-15-2021 COVID-19 VACCINE (4 - Booster for Moderna series) COVID-19 VACCINE (4 - Booster for Moderna series) [facility] Start: 10-04-2021 Hemoglobin A1c/Hemoglobin.total in Blood HBA1C [facility] Start: 09-01-2021 3 comp foot exam completed DIABETIC FOOT EXAM [facility] Start: 07-21-2021 Hepatitis C antibody , confirmatory test DILATED RETINAL EXAM [facility] Start: 05-27-2021 COLORECTAL CANCER SCREENING COLORECTAL CANCER SCREENING [facility] Start: 05-27-2021 FECAL OCCULT BLOOD FECAL OCCULT BLOO D [facility] Start: 2021 HEMOGLOBIN/HEMATOCRIT HEMOGLOBIN/HEM ATOCRIT [facility] Start: 2021 Hepatitis B screening URINE AL BUMIN:CREATININE RATIO [facility] Start: 05-07-2020 PNEUMOCOCCAL (2 - PCV) PNEUMOCOCCAL (2 - PCV) [facility] Start: 2011 SHINGRIX VACCINE (1 of 2) SHINGRIX VACCINE (1 of 2) [facility] Start: 2006 COLOGUARD (FIT-DNA) COLOGUARD (FIT-D NA) [facility] Start: 2006 Colonoscopy COLONOSCOPY [facility] Start: [address] COLONOGRAPHY [facility] Start: 2006 SIGMOIDOSCOPY SIGMOIDOSCOPY [facility] Start: 1980 Urine microalbumin profile DTAP,TDAP,TD (1 - Tdap) [facility] Start: 1979 SPIROMETRY SPIROMETRY [facility] Neisseria gonorrhoea e nucleic acid detection [facility] Path report.final Dx Spec [facility] PCR test for Chlamyd ia trachomatis [facility] Immunizations Immunization Date Immunization Notes Care Provider Ruben george 06-16-2021 COVID-19 vaccine, booster dose (MODERNA) Eloy Miles MD Work Phone: [facility] 05-07-2019 influenza, injectabl e, quadrivalent, contains preservative Eloy Miles MD Work Phone: [facility] 05-07-2019 pneumococcal polysaccharide vaccine, 23 valent Eloy Miles MD Work Phone: [facility] 04-18-2019 influenza, injectabl e, quadrivalent, preservative free [facility] 04-18-2019 influenza, seasonal, injectable [facility] 10-12-2018 tetanus toxoid, redu dena diphtheria toxoid, and acellular pertussis vaccine, adsorbed [facility] Payers Date Payer Category Payer Self-pay [id number] 2021 Unknown KARI ALBARRAN PPO [id number] 2021-Present [phone] [address] [place] [address] PPO [id number] 2018 Private Health Insurance [id number] 1960 Unknown [id number] 1960 Unknown [id number] Private Health Insurance [employer] [id number] Unknown KARI [id number] Unknown [id number] Unknown [id number] Unknown [id number] Unknown [id number] Social History Date Type Detail Facility Start: 01-27-2019 End: 10-03-2019 Tobacco smoking status NHIS Never smoked tobacco [facility] Start: 01-27-2019 Tobacco use and exposure Smoke less tobacco non-user [facility] Start: 07-25-2021 End: 11-01-2021 Alcohol intake Ex-drinker (finding) [facility] Start: 06-24-2021 History SDOH Alcohol Frequency 2 [facility] Start: 06-24-2021 History SDOH Alcohol Std Drinks 98 [facility] Start: 06-24-2021 History SDOH Alcohol Binge 1 [facility] Start: 06-24-2021 History SDOH Social Connections Phone 5 [facility] Start: 06-24-2021 History SDOH Social Connections Sikhism 3 [facility] Start: 07-06-2021 History SDOH Physica l Activity DPW 0 [facility] Start: 06-24-2021 History SDOH Financial 4 [facility] Start: 2020 Education 12 [facility] Start: 1960 Sex Assigned At Female C [facility] Start: 10-22-2021 End: 11-01-2021 Exposure to SARS-CoV-2 (event) Not sure [facility] Work Phone: Start: 10-03-2019 End: 10-04-2019 Tobacco smoking status NHIS Unknown if ever smoked [facility] Start: 10-03-2019 None [facility] Start: 07-23-2019 Non-smoker [facility] Start: 09-24-2024 End: 09-29-2024 Sex Female (finding) [facility] Medical Equipment Procedure Code Equipment Code [...] Camille Florez Ma documented in this encounter [facility] 11-10-2021 Miscellaneous Notes Images from the original note were not included. Very limited BG readings since patient is not monitoring BG with CGM 4 times daily as directed. Only 21% capture rate on CGM. Rabia Nolasco PharmD, BCACP Primary Care Clinical Pharmacist [facility] documented in this encounter [facility] 11-02-2021 Miscellaneous Notes Sw and nurse called to check and follow up with patient as part of our diabetes program. Patient reports that she "loves" the freestyle saira. Patient reports that she [...] the warmer weather. documented in this encounter [facility] 11-01-2021 Note HNO ID: [id number] Author: Leandro Louie APRN.ABLE BODIED TANKERMAN Service: ? Author Type: Nurse Practitioner Type: [...] INSULIN PEN NEEDLE UF) 31 gauge x 5/16" Use to inject insulin 4 times daily [...] every 6 hours as needed for Pain. [id number] (CALTRATE 600-D PLUS MINERALS) 600 mg calcium- [...] applicable. Augmentin bi (more content not included)... [facility] 11-01-2021 Instructions Leandro Louie APRN.[facility] 11/01/2021 8:44 AM EDT 1.) Get [...] and not with prostate problems can try [id number]-[id number] Coricidin HBP for congestion. You may find [...] up with PCP documented in this encounter [facility] 11-01-2021 History of Presen t illness Narrative [...] INSULIN PEN NEEDLE UF) 31 gauge x 5/16" Use to inject insulin 4 times daily [...] every 6 hours as needed for Pain. [id number] (CALTRATE 600-D PLUS MINERALS) 600 mg calcium- [...] Patient agreeable to treatment plan. Leandro Louie APRN.CNP documented in this encounter [facility] 10-28-2021 Miscellaneous Notes Noted. Dwight Genao APRN.CNP [...] Camille Florez Ma documented in this encounter [facility] 07-12-2021 Note HNO ID: [id number] Author: Rabia Nolasco RPh Service: ? Author [...] bottles?are not?present. ? Adherence:?denies?missed doses. ? Pharmacy:?[facility] [place]? Rx coverage:?Cigna? ? Affordability:?no concerns? ? Diabetes supplies:?[facility]? ? Organization System:?none ACTIVE PROBLEM LIST Type 2 Diabetes Mellitus (Hcc) Hyperlipidemia Asthma Ckd (Chronic Kidney Disease) Stage 3, Gfr 30-59 Ml/Min ([facility]) PAST MEDICAL HISTORY Diagnosis Date - Asthma [...] 1 Puff a (more content not included)... [facility] 07-12-2021 Note HNO ID: [id number] Author: Eloy Miles MD Service: ? Author Type: Physician Type: Progress Notes Filed: 07/12/2021 3:05 PM Note Text: Chief Complaint Patient presents with: Recheck HPI Glendy Pelaez is a 61 year old female who presents here today for a diabetic follow up Pt here today for a DM follow up. Notes that her is leaving his job at the [employer] and will be starting his new job at the [employer]. During this time she will be [...] kidney disease) stage 3, GFR 30-59 ml/min ([facility]) - Hyperlipidemia - SCC (squamous cell carcinoma) [...] once daily. - flash glucose scanning reader ([employer] SAIRA 14 DAY READER) Inject 1 Each subcutaneously as directed. - flash glucose sensor (LiveProfileSTYLE SAIRA 14 DAY SENSOR) kit Use to [...] INSULIN PEN NEEDLE UF) 31 gauge x 5/16" Use to inject insulin 4 times daily - acetaminophen (TYLENOL EXTRA STRENGTH) 500 mg tablet Take 2 tablets by mouth every 6 hours as needed for Pain. - [id number] (CALTRATE 600-D PLUS MINERALS) 600 mg calcium- [...] - L. ac (more content not included)... [facility] 07-06-2021 Note HNO ID: [id number] Author: MARLENE Espino Service: ? Author Type: Kitchen Steward/Stewardess Type: Progress Notes Filed: 07/07/2021 4:37 PM Note Text: Patient reports that she was diagnosed 20 years ago with diabetes. Multiple family members have diabetes ie mother, step father, siblings Patient reports that she likes to eat 1 package of pop tarts every morning. Patient drinks coffee with her pop tarts. For lunch she likes to eat arabic yogurt, peanut butter and cheese crackers, apples, [...] is in regards to high A1C and feels" I have been stuck in the same place for the last 20 years regarding my diabetes. I don't understand how my mom and cousin have a low A1C and they eat cakes, candy, all the time." Patient reports that she is also concerned about how some diabetes medications can increase weight gain. Patient notes that she has been trying to watch her portions. Goals: Lower A1C score Lose 20 pounds Patient discussed that she could start to walk again at the [facility] like she has in the past. No concerns noted regarding cost of medications, food, housing,transportation. Patient reports that she is looking forward to meeting with Stanislav-Diabetes Ed and Rabia-Pharm. Patient reports that she likes to correspond via [employer]. [facility] 06-24-2021 Note HNO ID: [id number] Author: Eloy Miles MD Service: ? Author [...] over the past couple weeks starting at [place]. She did receive the Moderna Booster shot [...] for cough. Started yesterday. Sick week of , week of . Had booster shot on [...] Medication Sig - flash glucose scanning reader (LiveProfileSTYLE SAIRA 14 DAY READER) Inject 1 Each [...] INSULIN PEN NEEDLE UF) 31 gauge x 5/16" Use to inject insulin 4 times daily - acetaminophen (TYLENOL EXTRA STRENGTH) 500 mg tablet Take 2 tablets by mouth every 6 hours as needed for Pain. - [id number] (CALTRATE 600-D PLUS MINERALS) 600 mg calcium- [...] this visit. General (more content not included)... [facility] 2021 Note HNO ID: [id number] Author: Jayshree Reyes[employer]olar [employer] Ara Service: ? Author Type: Puppy Walker Type: Progress Notes Filed: 2021 10:57 AM [...] DATA: Not applicable SIGNED BY: Sarah Montiel [employer] 2021 10:56 AM [facility] 02-16-2021 Note HNO ID: [id number] Author: Eloy Miles MD Service: ? Author Type: Physician Type: Progress Notes Filed: 02/16/2021 7:55 PM Note Text: Chief Complaint Patient presents with: Follow Up: diabetes HPI Glendy Pelaez is a 60 year old female who presents here today for follow up. Has been spending weekends at [employer], not eating as well there. [employer] will close at the end of Feb. [...] kidney disease) stage 3, GFR 30-59 ml/min ([facility]) - Hyperlipidemia - SCC (squamous cell carcinoma) - Type 2 diabetes mellitus (HCC) Previous Surgical History PAST SURGICAL HISTORY Procedure Laterality Date - PAST SURGICAL HISTORY OF N/A [address] [place] [address] Family History FAMILY HISTORY Problem [...] INSULIN PEN NEEDLE UF) 31 gauge x 5/16" Use to inject insulin 4 times daily - acetaminophen (TYLENOL EXTRA STRENGTH) 500 mg tablet Take 2 tablets by mouth every 6 hours as needed for Pain. - [id number] (CALTRATE 600-D PLUS MINERALS) 600 mg calcium- [...] due on 02/16/2021 (more content not included)... [facility] 11-22-2020 Note HNO ID: [id number] Author: Maryann Olmedo RN Service: ? Author Type: ? Type: Progress Notes Filed: 11/22/2020 7:37 PM Note Text: Patient returned call. Transferred to perfect bind machine operator for appointment. Maryann Olmedo RN [facility] 11-22-2020 Note HNO ID: [id number] Author: Nubia Scales Ma Service: ? Author [...] Scheduling/Wellness visits Payer: Payor: JOANNA / Plan: CIGNA OAP / Product Type: Open Access / Care Gap Reviewed:: Follow-up appointment Reminder: Reminder note to check Health Maintenance for items below Health Maintenance items due: SPIROMETRY Never done HIV SCREENING Never done DTAP,TDAP,TD(1 - Tdap) Never done SHINGRIX VACCINE(1 of 2) Never done Nubia Scales Ma November 22, 2020 2:13 PM [facility] 11-22-2020 Note Patient Outreach (FA MPWS) ANTONIOGLENDY Robles ([id number]) 1960 F Date Time Provider Department 11/22/20 NUBIA SCALES) [facility] During your visit today, we recorded the [...] PM Signed Patient returned call. Transferred to perfect bind machine operator for appointment. Maryann Olmedo RN Allergies As [...] Status:Closed by NUBIA SCALES MA on 11/22/20 [facility] Evaluation note Diagnosis Sinus congestion- Primary Other diseases of nasal cavity and sinuses documented in this encounter [facility] noteNo assessment information availableWBellevue [facility] Work Phone: Reason for referral (narrative)No reason for referral information availableWBellevue Hospital Work Phone: Summary Purpose Family History No Family History Records Found Relationship Condition Age at Onset Recorded Date/T fernando Unknown Family History?Diabetes Unknown Apr2019 10:44pm Family History?Diabetes Unknown 2019 10:44pm Relationship Condition Age at Onset Recorded Date/T fernando Unknown Family History?Diabetes Unknown 2019 9:44pm Family History?Diabetes Unknown [facility] 2019 9:44pm Advance Directives No Advanced Directives Records Found Advance Directive Response Recorded Date/ Time Living Will No October 03, 2019 10:57pm Power of Cashier Self Service Gasoline No October 02 10:57pm Advance Directive Response Recorded Date/ Time Living Will No October 03, 2019 9:57pm Power of Cashier Self Service Gasoline No October 02 9:57pm Chief Complaint and [...] section and content) DATE CREATED AUTHOR 05/27/2018 [facility] ([place]) DATE CREATED AUTHOR AUTHOR'S ORGANIZ ATION 11/04/2021 [facility] DATE CREATED AUTHOR AUTHOR'S ORGANIZ ATION 10/02/[address] [facility] Source Comments (unrecognize d section and content) In the event this informatio n is protected by the Federal Confidentiality of Alcohol and Drug Abuse Patient Records regulations: The Federal rules restrict any use of the information to criminally investigate or prosecute any alcohol or drug abuse patient.[facility] the event this information is protected by the Federal Confidentiality of Alcohol and Drug Abuse Patient Records regulations: The Federal rules restrict any use of the information to criminally investigate or prosecute any alcohol or drug abuse patient.[facility] the event this information is protected by the Federal Confidentiality of Alcohol and Drug Abuse Patient Records regulations: The Federal rules restrict any use of the information to criminally investigate or prosecute any alcohol or drug abuse patient.[facility] the event this information is protected by the Federal Confidentiality of Alcohol and Drug Abuse Patient Records regulations: The Federal rules restrict any use of the information to criminally investigate or prosecute any alcohol or drug abuse patient.[facility]igh[facility] the event this information is protected by the Federal Confidentiality of Alcohol and Drug Abuse Patient Records regulations: The Federal rules restrict any use of the information to criminally investigate or prosecute any alcohol or drug abuse patient.[facility] Care Teams (unrecognized sec tion and content) Store Shopper Relationship Specialty Start Date End Date Eloy Miles MD [address], [place] [id number] PCP - General Family Practice 05/28/19 Rabia Nolasco RPh [address], [place] [id number] Pharmacist Pharmacy 04/12/20 Store Shopper Relationship Specialty Start Date End Date Eloy Miles MD [address] [place] [address] PCP - General Family Practice 05/28/19 Leia Evelynekalia, [facility] [address] [place] [address] Pharmacist Pharmacy 04/12/20 Store Shopper Relationship Specialty Start Date End Date Eloy Miles MD [address] [place] [address] PCP - General Family Practice 05/28/19 Ulissesgregoria Rabia, [facility] [address] [place] [address] Pharmacist Pharmacy 04/12/20 Store Shopper Relationship Specialty Start Date End Date Eloy Miles MD [address] [place] [address] PCP - General Family Practice 05/28/19 Leia Evelynekalia, [facility] [address] [place] [address] Pharmacist Pharmacy 04/12/20 Store Shopper Relationship Specialty Start Date End Date Eloy Miles MD [address] [place] [address] PCP - General Family Practice 05/28/19 12/11/21 Ulissesgregoria Rabia, [facility] [address] [place] [address] Pharmacist Pharmacy 04/12/20 Team Status: Active Member [...] ve Start: September 23, 2024 Shen Merrill NP PRINCIPAL IOS DEVELOPER-C Attending Provider Active Start: September 23, 2024 Team Status: Inactive Member Role Status Dates Dr. Thanh Amado MD Primary Care Provider Acti ve Start: September 23, 2024 End: September 23, 2024 Shen Merrill PRINCIPAL IOS DEVELOPER PRINCIPAL IOS DEVELOPER-C Attending Provider Active Start: September 23, 2024 [...] BE BASED ON THE PRIMARY CLINICAL RECORDS. [facility] provides no warranty or guarantee of the accuracy or completeness of information in this document.
--- NOTE | 2025-05-12 18:42 | STRESSREP ---
Stress Test Report Exercise myocardial perfusion stress test. 64-year-old female with a history of chest pain. Stress protocol: Resting EKG demonstrates normal sinus rhythm with a rate of 81 bpm resting blood pressure is 100/60 mmHg. The patient exercised according to the regular [facility] protocol for a total duration of 4 minutes and 10 seconds attaining a maximum heart rate of 141 bpm which was 91% of maximum predicted heart rate; the maximum workload was 7 metabolic equivalents. At rest there were no ST or T wave changes noted to suggest ischemia and at peak exercise upsloping ST changes only were noted which did not meet the criteria for ischemia. No clinical angina was noted the test was terminated due to the target heart rate being achieved/fatigue. The peak blood pressure was 154/60 mmHg. Rate-pressure product was 18,000. Myocardial perfusion protocol. 11.8 mCi of technetium 99m sestamibi was injected at rest. The patient exercised according to regular [facility] protocol for total duration of 4 minutes and 10 seconds and at peak exercise 33.3 mCi of technetium 99m sestamibi was injected stress images were obtained stress and rest images were reconstructed in comparing the short axis vertical long and horizontal long axis. Gated images were also obtained. Perfusion SPECT analysis: Review of the stress images demonstrate normal uptake of tracer noted in all areas of the myocardium. The resting images similarly demonstrate normal uptake of tracer noted in all areas of the myocardium. No areas of reversibility are noted to suggest ischemia no previous infarct was noted. Gated SPECT analysis: The gated ejection fraction is 84%. Conclusion: Normal exercise myocardial perfusion stress test at a moderate workload.
== END | disposition home or self-care (01) ==
LOC: CVS 06:11
PROVIDERS: PCP Family Medicine; Referring Provider Family Medicine; Visit Provider Family Medicine
DX: R07.9 Chest pain, unspecified (principal)
CPT/HCPCS: 78452; 93017; A9500; A4216